=== PATIENT | female | born 1965 | race Caucasian/White ===

== ENCOUNTER 2017-08-07 05:45 | Day surgery (SDC) | payer OTHER ==
[2017-07-27 12:11] VITALS: BMI 56.0
--- NOTE | 2017-07-27 12:48 | PAT Medication Instructions ---
"Service Date Jul 27, 2017. Current Home Medication List Albuterol Hfa (Ventolin Hfa), 2-4 PUFFS INH Q6H PRN for Shortness of Breath Biotin W/ Vitamins C & E (Hair Skin & Nails ... 1250-7.5-7.5 Mcg-mg-Unt), 1 TAB PO QAM Cetirizine (Zyrtec), 10 MG PO HS Ibuprofen (Advil), 200-600 MG PO Q4H PRN for Pain Metoprolol Tartrate (Lopressor) (Lopressor), 50 MG PO BID Mometasone Furoate-Formoterol (Dulera 200/5 Mcg), 2 PUFFS INH BID Montelukast Sodium (Singulair), 10 MG PO HS Multivitamin (Multivitamin), 1 TAB PO DAILY Nystatin/Triamcinolone (Mycogen ||), 1 DOSE TOP QAM Probiotic Product (Probiotic), 1 CAP PO QAM Sertraline (Zoloft), 50 MG PO HS Triamcinolone Acetonide (Nasal (Nasacort Allergy 24Hr), 2 SPRAY NA DAILY Medication Instructions For Your Scheduled Surgery -Contact your surgeon for instructions if you plan on taking: Ibuprofen (Advil), 200-600 MG PO Q4H PRN for Pain - Hold the following medications 24 hours prior to surgery: Nystatin/Triamcinolone (Mycogen ||), 1 DOSE TOP QAM - Hold the following medications the morning of surgery: Probiotic Product (Probiotic), 1 CAP PO QAM Multivitamin (Multivitamin), 1 TAB PO DAILY - Take the following medications the morning of surgery with a sip of water: Triamcinolone Acetonide (Nasal (Nasacort Allergy 24Hr), 2 SPRAY NA DAILY Metoprolol Tartrate (Lopressor) (Lopressor), 50 MG PO BID Mometasone Furoate-Formoterol (Dulera 200/5 Mcg), 2 PUFFS INH BID Biotin W/ Vitamins C & E (Hair Skin & Nails ... 1250-7.5-7.5 Mcg-mg-Unt), 1 TAB PO QAM Albuterol Hfa (Ventolin Hfa), 2-4 PUFFS INH Q6H PRN for Shortness of Breath (if needed, and bring it with you to the hospital) - Take the following medications as scheduled the night before surgery: Triamcinolone Acetonide (Nasal (Nasacort Allergy 24Hr), 2 SPRAY NA DAILY Sertraline (Zoloft), 50 MG PO HS Metoprolol Tartrate (Lopressor) (Lopressor), 50 MG PO BID Mometasone Furoate-Formoterol (Dulera 200/5 Mcg), 2 PUFFS INH BID Montelukast Sodium (Singulair), 10 MG PO HS Cetirizine (Zyrtec), 10 MG PO HS Albuterol Hfa (Ventolin Hfa), 2-4 PUFFS INH Q6H PRN for Shortness of Breath (if needed) If you have any questions please call us at [phone] or [phone] or [phone]"
[2017-07-27 13:02] LABS: BASO % 0.2 %; BASO ABS # 0.01 K/uL (0-0.2); EOS ABS # 0.15 K/uL (0-0.5); HEMATOCRIT 41.3 % (37-47); HEMOGLOBIN 13.8 g/dL (12.0-16.0); IG# 0.01 K/uL (0.00-0.02); LYMPH % 39.9 %; LYMPH ABS # 1.98 K/uL (1.2-3.4); MEAN CELL VOLUME 90.8 fL (80-100); MEAN CORPUSCULAR HEMOGLOBIN 30.3 pg (25-34); MEAN CORPUSCULAR HGB CONC 33.4 g/dl (32-36); MEAN PLATELET VOLUME 9.8 fL (7.4-10.4); MONO % 8.7 %; MONO ABS # 0.43 K/uL (0.11-0.59); NEUT ABS # 2.38 K/uL (1.4-6.5); PLATELET COUNT 202 K/uL (130-400); RED CELL DISTRIBUTION WIDTH CV 14.2 % (11.5-14.5); RED CELL DISTRIBUTION WIDTH SD 46.7 fL (36.4-46.3); WHITE BLOOD COUNT 4.96 K/uL (4.8-10.8)
[2017-07-27 14:37] LABS: ALBUMIN 3.5 gm/dl (3.4-5.0); CALCIUM 9.3 mg/dl (8.5-10.1); CREATININE 0.6 mg/dl (0.60-1.20); POTASSIUM 3.9 mmol/L (3.5-5.1)
[2017-07-27 14:39] LABS: TOTAL PROTEIN 8.2 gm/dl (6.4-8.2)
[~2017-08-07] VITALS: Ht 160 cm; Wt 144.3 kg
[~2017-08-07 05:45] MED LIST: BIOT1CHW PO; CETI10TA84 PO; IBUP-1050 PO; METO50TA16 PO; MISCCAP80 PO; MOME200A INH; MONT1TAB3 PO; MULT-506 PO; NYSTOIN5 TOP; SERT50TA PO; TRIA1SPR4; VNTHFA/IN INH
[2017-08-07] MEDS ORDERED: LACTATED RINGER'S 1000ML 1,000 ML IV SCH ×2 (06:00)
[2017-08-07 06:03] VITALS: Ht 160 cm; Wt 144.3 kg
[2017-08-07] MEDS ORDERED: ROCURONIUM BROMID 50MG/5ML SYR ONE (06:50)
[2017-08-07] MEDS ORDERED: FENTANYL CITRATE INJ 50 MCG/1 ML 2 ML VIAL ONE (06:50)
[2017-08-07] MEDS ORDERED: PROPOFOL IV EMULSION 10 MG/ML 20 ML VIAL IV ONE (06:50)
[2017-08-07] MEDS ORDERED: SUCCINYLCHOLINE CHLORIDE 20 MG/ML 10 ML VIAL IV ONE (06:50)
[2017-08-07] MEDS ORDERED: LIDOCAINE HCL 2% 2 ML VIAL (20MG/ML) ONE (06:50)
--- NOTE | 2017-08-07 06:52 | History & Physical Bridge Note ---
H&P Re-Evaluation Bridge Note: I have examined the patient, reviewed the History & Physical and in the interval since the performance of the History & Physical I have noted the following changes of clinical significance: No changes noted
[2017-08-07] MEDS ORDERED: KETOROLAC TROMETHAMINE 30 MG/ML VIAL ONE (07:36)
[2017-08-07] MEDS ORDERED: DEXAMETHASONE SOD INJ 4 MG/ML VIAL ONE (07:36)
[2017-08-07] MEDS ORDERED: ONDANSETRON INJ 2 MG/ML 2 ML VIAL ONE (07:36)
[2017-08-07] MEDS ORDERED: ESMOLOL HCL 10 MG/ML 10 ML VIAL ONE (08:04)
[2017-08-07] MEDS ORDERED: SODIUM CHLORIDE 0.9% 1000ML 1,000 ML IV SCH (08:18)
[2017-08-07] MEDS ORDERED: MTR600X PO (08:25)
--- NOTE | 2017-08-07 08:26 | Discharge Instructions ---
Discharge Instructions Date of Service Aug 07, 2017. Admission Reason for Admission: Post-Menopausal Bleeding, Abn Endometrial Ultrasou Discharge Discharge Diagnosis / Problem: postop Discharge Goals Goal(s): Specific Goal(s) Activity Recommendations Activity Limitations: as noted below ACTIVITY RECOMMENDATIONS: * Avoid tampons, douching, hot tubs, pools, and intercourse until bleeding has stopped. * May shower as usual. * No strenuous activity for 24-48 hours. After 24-48 hours, you can do anything you feel like doing (driving and sports are okay). RETURN TO SCHOOL/WORK: * You may return to school or work after 24 hours unless specified by your physician. DIET: * Resume previous diet. MEDICATIONS: Resume previous medications unless instructed otherwise by your surgeon. Ibuprofen 200mg 2-3 tablets every 4-6 hours as needed --OR-- Aleve 2 tablets every 8-12 hours as needed for post-operative discomfort Medications are over the counter. Tylenol may be used if above medications are contraindicated or not preferred. Medication should be taken with food or milk. do not take on an empty stomach. SPECIAL CARE INSTRUCTIONS: * Check temperature twice daily for one week. Report any elevation over 101 degrees. * Call office if you experience increased pelvic pain or discomfort not relieved by pain medicine, if you have foul smelling vaginal discharge, if you have bleeding that is heavier than a normal menstrual flow. If you are changing a maxi pad every 1- 2 hours, this is too heavy. vaginal spotting is normal for 1-2 weeks. FOLLOW UP VISIT: Call your doctor's office for a post-operative visit. . Current Hospital Diet Patient's current hospital diet: Discharge Diet Recommended Diet: Regular Diet Procedures Procedures Performed: Evaulation Under Anesthesia, Hysteroscopy, Dilation and Curettage, Endometrial Polyp Resection with Myosure Pending Studies Studies pending at discharge: no Medical Emergencies . Who to Call and When: Medical Emergencies: If at any time you feel your situation is an emergency, please call 911 immediately. . Non-Emergent Contact Non-Emergency issues call your: Specialist . . "Provider Documentation" section prepared by Hamilton Dumont. . VTE Core Measure Inpt VTE Proph given/why not?: Treatment not indicated
[2017-08-07] MEDS ORDERED: HYDROCODONE/ACETAMIN 5/325MG TAB PO PRN ×2 (08:30)
[2017-08-07] MEDS ORDERED: EpHEDrine SULFATE INJ 50 MG/ML AMP IV PRN (08:30)
[2017-08-07] MEDS ORDERED: OXYCODONE/ACETAMINOPHEN 5-325 TAB PO PRN ×2 (08:30)
[2017-08-07] MEDS ORDERED: PROMETHAZINE HCL INJ 6.25 MG in SODIUM CHLORIDE 0.9% 50ML 50 ML IV PRN (08:30)
[2017-08-07] MEDS ORDERED: ONDANSETRON INJ 2 MG/ML 2 ML VIAL IV PRN ×2 (08:30)
[2017-08-07] MEDS ORDERED: METOCLOPRAMIDE HCL INJ 5 MG/ML 2 ML VIAL IV PRN (08:30)
[2017-08-07] MEDS ORDERED: ATROPINE SULFATE 0.1 MG/ML 5ML SYR IV PRN (08:30)
[2017-08-07] MEDS ORDERED: KETOROLAC TROMETHAMINE 30 MG/ML VIAL IV. PRN (08:30)
[2017-08-07] MEDS ORDERED: IBUPROFEN 600 MG TAB PO PRN (08:30)
[2017-08-07] MEDS ORDERED: FENTANYL CITRATE INJ 50 MCG/1 ML 2 ML VIAL IV PRN (08:30)
--- NOTE | 2017-08-07 08:33 | [facility] Post Operative Brief Note ---
Immediate Operative Summary Operative Date Aug 07, 2017. Pre-Operative Diagnosis Postmenopausal Bleeding Post-Operative Diagnosis Postmenopausal Bleeding Procedure(s) Performed Evaulation Under Anesthesia, Hysteroscopy, Dilation and Curettage, Endometrial Polyp Resection with Myosure Surgeon Dr. Dumont Protective Service Specialist Surgeon(s) none Estimated Blood Loss 10 cc Findings See Below dictated Fluids (cc crystalloids) 800 Specimens A: Uterine curettings B:Polyps Drains None Anesthesia Type General Complication(s) none Disposition Accompanied Pt To Recover: yes Disposition: Recovery Room / PACU
--- NOTE | 2017-08-07 08:37 | Anesthesiology Progress Note ---
Anesthesia Post Op Note Date & Time Aug 07, 2017 at 08:37 Vital Signs Pain Intensity: 0 Vital Signs Past 12 Hours Date Time Temp Pulse Resp B/P (MAP) Pulse Ox O2 Delivery O2 Flow Rate FiO2 08/07/17 08:20 101 16 115/63 99 Oxymask 7 08/07/17 08:11 36.7 101 16 127/79 98 Oxymask 7 Notes Mental Status: alert / awake / arousable, participated in evaluation Pt Amnestic to Procedure: Yes Nausea / Vomiting: adequately controlled Pain: adequately controlled Airway Patency, RR, SpO2: stable & adequate BP & HR: stable & adequate Hydration State: stable & adequate Anesthetic Complications: no major complications apparent
--- NOTE | 2017-08-07 08:49 | OPERATIVE REPORT ---
DATE OF OPERATION: 08/07/2017 INDICATION FOR PROCEDURE: This is a 52-year-old with postmenopausal bleeding. POSTOPERATIVE DIAGNOSIS: Same. PROCEDURE: 1. Examination under anesthesia. 2. Hysteroscopy. 3. Dilation and curettage. 4. Endometrial polyp resection with MyoSure. SURGEON: Dr. Dumont. MECHANICAL MANUFACTURING TECHNICIAN: None. ESTIMATED BLOOD LOSS: 10 mL IV FLUIDS: 800 mL URINE OUTPUT: 150 mL clear urine at the beginning of the procedure. FINDINGS: Normal female escutcheon. Uterus has a polyp occupying the lower left side of the uterine cavity. Both ostia are identified. Uterus appears proliferative. SPECIMEN: 1. Uterine polyp resection. 2. Uterine curettings. DRAINS: None. ANESTHESIA: General. COMPLICATIONS: None. DISPOSITION: Stable to recovery room. PROCEDURE IN DETAIL: The patient was taken to the operating room where she was prepped and draped in normal sterile fashion in dorsal lithotomy position. Bladder was catheterized and 150 mL clear urine was obtained. A weighted speculum was placed in the vagina. Brown retractor was used to retract the anterior part of the vagina. Single tooth tenaculum was used to grab the cervix. Cervix was dilated to size 22. Ureteroscope was placed inside the uterine cavity. Findings of the uterine cavity are as dictated above. A MyoSure device was passed through the outflow tract of the MyoSure scope. Endometrial resection of the polyp and endometrium was performed. The MyoSure scope and device was removed. A size 2 sharp curette was introduced into the uterine cavity and curettage performed in all 4 quadrants. Specimen was sent to pathology for pathological analysis as well. All instruments were removed from the vagina and the uterus and accounted for x2 including retractors. The patient is in recovery in stable condition. I attest to the content of the Intraoperative Record and any orders documented therein. Any exception s are noted below.
[2017-08-07 09:00] VITALS: BP 119/65; PULSE 99; TEMP 36.4; O2SAT 93
[2017-08-07 09:30] VITALS: BP 140/77; PULSE 99; TEMP 36.7; O2SAT 95
[2017-08-07 10:00] VITALS: BP 138/72; PULSE 95; TEMP 36.5; O2SAT 95
== END 2017-08-07 10:25 | disposition home or self-care (01) ==
LOC: C.ACU 05:45
PROVIDERS: ATTEND Obstetrics & Gynecology
DX: N95.0 Postmenopausal bleeding (principal); J45.909 Unspecified asthma, uncomplicated; M19.90 Unspecified osteoarthritis, unspecified site; F32.9 Major depressive disorder, single episode, unspecified; Z79.899 Other long term (current) drug therapy; E66.01 Morbid (severe) obesity due to excess calories; Z68.43 Body mass index [BMI] 50.0-59.9, adult; Z90.89 Acquired absence of other organs; Z98.51 Tubal ligation status; Z83.3 Family history of diabetes mellitus; Z82.3 Family history of stroke; Z80.3 Family history of malignant neoplasm of breast

== ENCOUNTER 2024-09-09 14:15 | Inpatient (IN) ==
--- NOTE | 2024-09-09 16:59 | Emergency Department Note ---
Impression & Plan Stroke-like symptom, Decreased vision of left eye, Elevated troponin I level ED Provider Note NAME: BANDAR MONTES AGE: 59 SEX: F : 1965 ARRIVES VIA: Ambulance INFORMANT: Patient, ED PROVIDER(S): Aditya Michael DO CHIEF COMPLAINT: Decreased vision HPI: The patient is a 59-year-old female who presented to the emergency department with decreased vision. She has had similar episodes in the past that do not last very long but this episode started last evening around 7 PM and has continued through today. The patient has not been seen by her family doctor. The patient denies having any headache. She denies having any other symptoms. She has no history of stroke. ROS: See above HPI for pertinent positives & negatives. A total of 10 systems reviewed and were otherwise negative. PAST MEDICAL HISTORY: See Below PAST SURGICAL HISTORY: See Below FAMILY HISTORY: See Below SOCIAL HISTORY: See Below HOME MEDICATIONS: See Below ALLERGIES: See Below VITALS: See Below PHYSICAL EXAMINATION: GENERAL: Patient is awake alert in no acute distress patient is resting comfortably and showing no signs of anxiety EYES: The conjunctivae are clear. The pupils are round and reactive. EARS, NOSE, MOUTH AND THROAT: The nose is without any evidence of any deformity. NECK: The neck is nontender and supple. RESPIRATORY: Normal respiratory effort is noted there is no evidence of wheezing rhonchi or rales CARDIOVASCULAR: Regular rate and rhythm noted there no murmurs rubs or gallops normal S1 normal S2. GASTROINTESTINAL: The abdomen is soft. Abdomen is nontender. MUSCULOSKELETAL/EXTREMITIES: There is no evidence of gross deformity full range of motion is noted in the hips and shoulders. SKIN: There is no obvious evidence of any rash. There are no petechiae, pallor or cyanosis noted. NEUROLOGIC: Patient is awake alert and oriented x3. There was no drift in the upper extremities. There was no facial droop. Speech is clear. Patient is able to hold each leg off of the bed for greater than 5 seconds. MEDICAL DECISION MAKING: The patient is a 59-year-old female who presented to the emergency department for an evaluation of decreased vision in her left eye. The patient had a painless loss of vision in her left eye over 24 hours ago. The patient was not a candidate for TNK. I discussed the patient's laboratory and radiographic studies with her. Radiographic studies did not reveal any large vessel occlusion or obvious intracranial hemorrhage or stroke. At this time the patient's blood pressure was treated in the emergency department. She was also reevaluated multiple times. Given her findings I do feel she may require further inpatient reevaluation and further workup. For this reason I discussed the patient's condition with the on-call [facility] Hospitalist. They have agreed to evaluate the patient. Triage Nursing notes reviewed. Prior medical records reviewed Vital Signs: reviewed and remarkable for elevated blood pressure. Differential diagnosis: Conjunctivitis, trauma, corneal abrasion, hyphema, glaucoma, iritis, corneal ulcer, dendrite, CRAO, CRVO, vitreous detachment, retinal detachment, as well as other pathologies. ER treatment provided: See below Diagnostics interpreted by me: ECG: EKG was obtained in the emergency department. My interpretation is normal sinus rhythm at 78 bpm. There was no ectopy. There was no acute ST segment abnormalities noted. Cardiac Monitoring: An order was placed for continuous cardiac monitoring. The monitor shows a rate of 81 bpm with sinus rhythm. Laboratory studies: As stated above and show below. Imaging studies: See below. Radiographic imaging was reviewed by myself Consultation(s): I discussed this case with Dr. Velarde who is on-call for the [facility] Hospitalist group. Past Med/Surg History Problem List Elevated troponin I level (Acute) Decreased vision of left eye (Acute) Stroke-like symptom (Acute) Encounter for pre-operative examination Screening for colon cancer Medical History Mixed rhinitis Diabetes mellitus, type 2 Sleep apnea does not use device Paroxysmal ventricular tachycardia per [facility] record Morbid obesity with BMI of 50.0-59.9, adult Asthma inhaler daily/prn Nausea and vomiting after administration of anesthetic agent Osteoarthritis Anxiety Periodic heart flutter currently taking metoprolol Surgical History History of colonoscopy History of section x2 History of dilatation and curettage History of bilateral tubal ligation History of tooth extraction all teeth removed History of tonsillectomy Family History Father Family history of diabetes mellitus Aunt Family history of diabetes mellitus Uncle Family history of diabetes mellitus Grandfather (Maternal) Family history of diabetes mellitus Grandfather (Paternal) Family history of diabetes mellitus Grandmother (Paternal) Family history of diabetes mellitus Grandmother (Maternal) Family history of diabetes mellitus Sister Family hx colonic polyps Other No family history of adverse response to anesthesia Social History Smoking Status: Unknown if ever smoked Second Hand Exposure: Yes (hx growing up); Do You Dip or Chew Tobacco: No; Hx Alcohol Use: Yes Hx Substance Use: No Preferred Language: Sinhala Communication Ability: Effective Specialized Developer Required: No Beliefs That Will Affect Care: None Current Living Situation: Spouse Feels Safe at Home: Yes Assistive Devices: Cane and Glasses Allergies Allergies Allergy/AdvReac Type Severity Reaction Status Date / Time No Known Allergies Allergy Verified 09/09/24 18:08 Home Meds Home Medications Medication Instructions Recorded Confirmed acetaminophen 650 mg 650 mg PO Q8H PRN Pain 08/20/18 09/09/24 tablet,extended release (Tylenol Arthritis Pain) albuterol sulfate 90 mcg/actuation 2 puff inhalation Q4H PRN 08/20/18 09/09/24 aerosol inhaler (Ventolin HFA) Shortness Of Breath cetirizine 10 mg tablet 10 mg PO HS 08/20/18 09/09/24 metoprolol tartrate 50 mg tablet 50 mg PO BID 08/20/18 09/09/24 montelukast 10 mg tablet 10 mg PO HS 08/20/18 09/09/24 triamcinolone acetonide 0.1 % 1 applic topical BID PRN itching 08/20/18 09/09/24 topical cream diclofenac sodium 1 % topical gel 2 g topical QID PRN Pain 11/25/22 09/09/24 lisinopril 2.5 mg tablet 2.5 mg PO HS 11/25/22 09/09/24 metformin 1,000 mg tablet 1,000 mg PO BID 11/25/22 09/09/24 mometasone-formoterol HFA 200 2 puff inhalation BID 11/25/22 09/09/24 mcg-5 mcg/actuation aerosol inhaler (Dulera) sertraline 100 mg tablet 100 mg PO HS 11/25/22 09/09/24 sulindac 200 mg tablet 200 mg PO BID 11/25/22 09/09/24 Results & Data (ED) Vital Signs Vital Signs - 24 hr 09/09/24 14:08 09/09/24 17:53 09/09/24 17:54 Temperature 36.6 C Temperature Source Oral Pulse Rate 81 64 Pulse Rate [Apical] 63 Pulse Rhythm [Apical] Regular Pulse Strength [Apical] Normal Respiratory Rate 20 18 Respiratory Effort / Characteristics Non-Labored Spontaneous Respiratory Depth Normal Respiratory Pattern Regular Blood Pressure Blood Pressure [Left Arm] 176/98 H Blood Pressure Mean [Left Arm] 124 Pulse Oximetry 94 95 Oxygen Delivery Method Room Air Room Air Sepsis Recent Fever Within 48 Hours No Sepsis New/Unexplained Change in Mental Status No Sepsis Action Taken by Nursing No Action Required 09/09/24 19:00 09/09/24 19:49 09/09/24 20:41 Temperature Temperature Source Pulse Rate 71 81 Pulse Rate [Apical] 77 Pulse Rhythm [Apical] Pulse Strength [Apical] Respiratory Rate 21 Respiratory Effort / Characteristics Respiratory Depth Respiratory Pattern Blood Pressure 191/100 H 179/91 H Blood Pressure [Left Arm] 192/129 H Blood Pressure Mean [Left Arm] 150 Pulse Oximetry 93 Oxygen Delivery Method Room Air Sepsis Recent Fever Within 48 Hours Sepsis New/Unexplained Change in Mental Status Sepsis Action Taken by [facility] Medications Current Medication List: was personally reviewed by me Laboratory Data Attestation: I reviewed the patient's lab results. 09/09/24 17:51 09/09/24 17:51 Lab Results 09/09/24 09/09/24 09/09/24 Range/Units 17:51 18:22 19:31 WBC 6.29 (4.8-10.8) K/ul RBC 4.76 (4.20-5.40) M/uL Hgb 13.7 (12.0-16.0) g/dl Hct 42.9 (37.0-47.0) % MCV 90.1 (80.0-100.0) fL MCH 28.8 (25.0-34.0) pg MCHC 31.9 L (32.0-36.0) g/dL RDW Std Deviation 44.5 (36.4-46.3) fL RDW Coeff of [place] 13.5 (11.5-14.5) % Plt Count 207 (130-400) K/uL MPV 10.3 (9.4-12.4) fL Immature Gran % (Auto) 0.3 % Neut % (Auto) 55.5 % Lymph % (Auto) 25.9 % [place] % (Auto) 6.7 % Eos % (Auto) 11.3 % Baso % (Auto) 0.3 % Neut # (Auto) 3.49 (1.40-6.50) K/uL Lymph # (Auto) 1.63 (1.20-3.40) K/uL [place] # (Auto) 0.42 (0.11-0.59) K/uL Eos # (Auto) 0.71 H (0.00-0.50) K/uL Baso # (Auto) 0.02 (0.00-0.20) K/uL Immature Gran # (Auto) 0.02 (0.01-0.20) K/uL ESR 73 H (0-30) mm/hr PT Cancelled 10.9 INR Cancelled 1.0 APTT Cancelled 27 PTT Ratio Cancelled 1.0 Sodium 140 (136-145) mmol/L Potassium 4.2 (3.5-5.1) mmol/L Chloride 105 (98-107) mmol/L Carbon Dioxide 29 (21-32) mmol/L Anion Gap 6 (3-11) BUN 24 H (6-23) mg/dl Creatinine 0.62 (0.6-1.2) mg/dl Est Cr Clr Drug Dosing 148.7 ml/min eGFR 103.80 BUN/Creatinine Ratio 38.7 H (10-20) Glucose 93 (70-99(Fasting)) mg/dl Calcium 9.7 (8.6-10.3) mg/dl Magnesium 1.8 (1.7-2.4) mg/dl Total Bilirubin 0.4 (0.2-1.0) mg/dl AST 14 (13-39) U/L ALT 17 (7-52) U/L Alkaline Phosphatase 79 (34-104) U/L Troponin I High Sens 91.1 H* 79.2 H* D (0-14) pg/ml C-Reactive Protein 0.80 H (0-0.5) mg/dl Total Protein 8.2 (6.0-8.3) gm/dl Albumin 4.7 (3.4-5.0) gm/dl Globulin 3.5 (2.5-4.0) gm/dl Albumin/Globulin Ratio 1.3 (0.9-2) Urine Color Yellow Urine Appearance Clear (Clear) Urine pH 6.5 (4.5-7.5) Ur Specific [place] 1.012 (1.000-1.030) Urine Protein Negative (Negative) Urine Glucose (UA) Negative (Negative) Urine Ketones Negative (Negative) Urine Blood Negative (Negative) Urine Nitrite Negative (Negative) Urine Bilirubin Negative (Negative) Urine Urobilinogen Negative (Negative) Ur Leukocyte Esterase Negative (Negative) Administered Medications Discontinued Medications Ioversol (Optiray 320 125ml) 119 ml IV ONCE ONE Stop: 09/09/24 18:44 Last Admin: 09/09/24 18:43 Dose: 119 ml Documented By: ELIZABETH Labetalol HCl (Labetalol Hcl Iv 5 Mg/Ml 20ml) 10 mg IV NOW STA Stop: 09/09/24 19:45 Last Admin: 09/09/24 19:49 Dose: 10 mg Documented By: LIAM Lisinopril (Lisinopril 2.5 Mg Tab) 2.5 mg PO NOW STA Stop: 09/09/24 20:11 Last Admin: 09/09/24 20:18 Dose: Not Given Documented By: LIAM Imaging Data Attestation: I personally reviewed and interpreted this imaging study as follows: My Impression: 1 view chest x-ray was obtained in the emergency department. My interpretation is no free air or definite infiltrate, final report below. CT of the brain was obtained in the emergency department. My interpretation is no intracranial hemorrhage or mass effect, final report below. Radiologist's Impression: Chest X-Ray 09/09/24 16:44 REASON FOR EXAM: The patient is 59 years old presenting with a history of stroke alert. HISTORY: Weakness EXAM: Portable chest Previous: None. Cardiac size is normal. Lungs show no definite acute infiltrate, collapse or edema. IMPRESSION: Negative for acute disease at this time. Electronically signed by Austen Law 09-09-2024 5:[address] 09/09/24 16:[address] without contrast CT angiogram of the neck CT angiogram of the brain with contrast Provided History: Vision loss Comparison: None Technique: HEAD CT: Using multidetector thin collimation helical acquisition technique, axial, coronal and sagittal CT images from the skull base to the vertex were obtained without intravenous contrast. HEAD and NECK CTA: During rapid bolus intravenous injection of nonionic contrast material, axial images were obtained using thin collimation multidetector helical technique from the base of the neck through the of vertex of the head. This CT angiogram data was reconstructed at thin intervals with mild overlap. 3D reconstructions were obtained. The axial source images, multiplanar reformations, 3D reconstructions in both maximum intensity projection display and volume rendered models were reviewed. Dose reduction techniques were achieved by using automatic exposure control and/or adjustment of mA and/or kV according to patient size and/or use of iterative reconstruction technique. Findings: Head CT: There is no intracranial hemorrhage, mass effect, or midline shift. Clay/white matter differentiation in both cerebral hemispheres is preserved. Ventricles are proportionate to the cerebral sulci. Head CTA demonstrates no aneurysm or stenosis of the major intracranial arteries. Neck CTA demonstrates no stenosis of the major cervical arteries. The origins of the great vessels from the aortic arch are patent. The normal distal right internal carotid artery measures 5 mm. The normal distal left internal carotid artery measures 5 mm. No mass is noted within the visualized portions of the cervical soft tissues or lung apices. Impression: 1. Head CTA demonstrates no aneurysm or stenosis of the major intracranial arteries, 2. Neck CTA demonstrates no stenosis of the major cervical arteries. 3. No intracranial hemorrhage on the noncontrast head CT. Electronically signed by Micah Choudhary 09-09-2024 7:15 PM Head CTA 09/09/24 16:[address] without contrast CT angiogram of the neck CT angiogram of the brain with contrast Provided History: Vision loss Comparison: None Technique: HEAD CT: Using multidetector thin collimation helical acquisition technique, axial, coronal and sagittal CT images from the skull base to the vertex were obtained without intravenous contrast. HEAD and NECK CTA: During rapid bolus intravenous injection of nonionic contrast material, axial images were obtained using thin collimation multidetector helical technique from the base of the neck through the of vertex of the head. This CT angiogram data was reconstructed at thin intervals with mild overlap. 3D reconstructions were obtained. The axial source images, multiplanar reformations, 3D reconstructions in both maximum intensity projection display and volume rendered models were reviewed. Dose reduction techniques were achieved by using automatic exposure control and/or adjustment of mA and/or kV according to patient size and/or use of iterative reconstruction technique. Findings: Head CT: There is no intracranial hemorrhage, mass effect, or midline shift. Clay/white matter differentiation in both cerebral hemispheres is preserved. Ventricles are proportionate to the cerebral sulci. Head CTA demonstrates no aneurysm or stenosis of the major intracranial arteries. Neck CTA demonstrates no stenosis of the major cervical arteries. The origins of the great vessels from the aortic arch are patent. The normal distal right internal carotid artery measures 5 mm. The normal distal left internal carotid artery measures 5 mm. No mass is noted within the visualized portions of the cervical soft tissues or lung apices. Impression: 1. Head CTA demonstrates no aneurysm or stenosis of the major intracranial arteries, 2. Neck CTA demonstrates no stenosis of the major cervical arteries. 3. No intracranial hemorrhage on the noncontrast head CT. Electronically signed by Micah Choudhary 09-09-2024 7:15 PM Neck CTA 09/09/24 16:[address] without contrast CT angiogram of the neck CT angiogram of the brain with contrast Provided History: Vision loss Comparison: None Technique: HEAD CT: Using multidetector thin collimation helical acquisition technique, axial, coronal and sagittal CT images from the skull base to the vertex were obtained without intravenous contrast. HEAD and NECK CTA: During rapid bolus intravenous injection of nonionic contrast material, axial images were obtained using thin collimation multidetector helical technique from the base of the neck through the of vertex of the head. This CT angiogram data was reconstructed at thin intervals with mild overlap. 3D reconstructions were obtained. The axial source images, multiplanar reformations, 3D reconstructions in both maximum intensity projection display and volume rendered models were reviewed. Dose reduction techniques were achieved by using automatic exposure control and/or adjustment of mA and/or kV according to patient size and/or use of iterative reconstruction technique. Findings: Head CT: There is no intracranial hemorrhage, mass effect, or midline shift. Clay/white matter differentiation in both cerebral hemispheres is preserved. Ventricles are proportionate to the cerebral sulci. Head CTA demonstrates no aneurysm or stenosis of the major intracranial arteries. Neck CTA demonstrates no stenosis of the major cervical arteries. The origins of the great vessels from the aortic arch are patent. The normal distal right internal carotid artery measures 5 mm. The normal distal left internal carotid artery measures 5 mm. No mass is noted within the visualized portions of the cervical soft tissues or lung apices. Impression: 1. Head CTA demonstrates no aneurysm or stenosis of the major intracranial arteries, 2. Neck CTA demonstrates no stenosis of the major cervical arteries. 3. No intracranial hemorrhage on the noncontrast head CT. Electronically signed by Micah Choudhary 09-09-2024 7:15 PM Discharge Plan Visit Data Chief Complaint: Visual Disturbance ED Provider: Aditya Michael Discharge Problem: Stroke-like symptom, Decreased vision of left eye, Elevated troponin I level Patient Disposition: Being Evaluated by Hospitalist Forms Stand Alone Forms: [facility] Prescriptions Prescriptions: No Action cetirizine 10 mg Tablet 10 mg PO HS triamcinolone acetonide 0.1 % Cream 1 applic TOPICAL BID PRN (Reason: itching) acetaminophen [Tylenol Arthritis Pain] 650 mg Tablet Extended Release 650 mg PO Q8H PRN (Reason: Pain) metoprolol tartrate 50 mg Tablet 50 mg PO BID montelukast 10 mg Tablet 10 mg PO HS albuterol sulfate [Ventolin HFA] 90 mcg/actuation Hfa Aerosol Inhaler 2 puff INHALATION Q4H PRN (Reason: Shortness Of Breath) sertraline 100 mg Tablet 100 mg PO HS metformin 1,000 mg Tablet 1,000 mg PO BID Rx Instructions: with meal lisinopril 2.5 mg Tablet 2.5 mg PO HS sulindac 200 mg Tablet 200 mg PO BID Rx Instructions: with food diclofenac sodium 1 % Gel 2 g TOPICAL QID PRN (Reason: Pain) Rx Instructions: apply to single elbow, wrist or hand; for hand includes palm/fingers/back of hand Dulera 200-5 mcg/actuation Hfa Aerosol Inhaler 2 puff INHALATION BID Referrals Referrals: Garett Bernal MD [Primary Care Provider] -
--- NOTE | 2024-09-09 17:50 | XRay Report ---
REASON FOR EXAM: The patient is 59 years old presenting with a history of stroke alert. HISTORY: Weakness EXAM: Portable chest Previous: None. Cardiac size is normal. Lungs show no definite acute infiltrate, collapse or edema. IMPRESSION: Negative for acute disease at this time. Electronically signed by Austen Law 09-09-2024 5:49 PM
[2024-09-09 18:11] LABS: Basophils # (auto) 0.02 K/uL (0.00-0.20); Basophils % (auto) 0.3 %; Eosinophils # (auto) 0.71 K/uL (0.00-0.50); Eosinophils % (auto) 11.3 %; Hematocrit (blood only) 42.9 % (37.0-47.0); Hemoglobin 13.7 g/dl (12.0-16.0); Immature Granulocytes # (auto) 0.02 K/uL (0.01-0.20); Immature Granulocytes % (auto) 0.3 %; Lymphocytes # (auto) 1.63 K/uL (1.20-3.40); Lymphocytes % (auto) 25.9 %; Mean Corpuscular Hemoglobin 28.8 pg (25.0-34.0); Mean Corpuscular Hgb Conc 31.9 g/dL (32.0-36.0); Mean Corpuscular Volume 90.1 fL (80.0-100.0); Mean Platelet Volume 10.3 fL (9.4-12.4); Monocytes # (auto) 0.42 K/uL (0.11-0.59); Monocytes % (auto) 6.7 %; Neutrophils # (auto) 3.49 K/uL (1.40-6.50); Neutrophils % (auto) 55.5 %; Platelet Count 207 K/uL (130-400); RDW Coefficient of Variation 13.5 % (11.5-14.5); RDW Standard Deviation 44.5 fL (36.4-46.3); Red Blood Count 4.76 M/uL (4.20-5.40); White Blood Count 6.29 K/ul (4.8-10.8)
[2024-09-09 18:28] LABS: Albumin Globulin Ratio 1.3 (0.9-2); Albumin Level 4.7 gm/dl (3.4-5.0); BUN Creatinine Ratio 38.7 (10-20); Bilirubin,Total 0.4 mg/dl (0.2-1.0); C Reactive Protein 0.8 mg/dl (0-0.5); Calcium 9.7 mg/dl (8.6-10.3); Creatinine Clr Calc Pharmacy 148.7 ml/min; Globulin 3.5 gm/dl (2.5-4.0); Magnesium 1.8 mg/dl (1.7-2.4); Potassium 4.2 mmol/L (3.5-5.1); Total Protein 8.2 gm/dl (6.0-8.3)
[2024-09-09 18:36] LABS: Appearance Urine Clear (Clear); Bilirubin Urine Negative (Negative); Blood Urine Negative (Negative); Color Urine Yellow; Glucose Urine UA Negative (Negative); Ketones Urine Negative (Negative); Leukocyte Esterase Urine Negative (Negative); Nitrite Urine Negative (Negative); Protein Urine Negative (Negative); Specific Gravity Urine 1.012 (1.000-1.030); Urobilinogen Urine Negative (Negative); pH Urine 6.5 (4.5-7.5)
[2024-09-09] MEDS: OPTIRAY 320 125ml IV ONE (18:43)
[2024-09-09 18:49] LABS: Troponin I High Sensitivity 91.1 pg/ml (0-14)
--- NOTE | 2024-09-09 19:16 | CT Scan Report ---
Head CT without contrast CT angiogram of the neck CT angiogram of the brain with contrast Provided History: Vision loss Comparison: None Technique: HEAD CT: Using multidetector thin collimation helical acquisition technique, axial, coronal and sagittal CT images from the skull base to the vertex were obtained without intravenous contrast. HEAD and NECK CTA: During rapid bolus intravenous injection of nonionic contrast material, axial images were obtained using thin collimation multidetector helical technique from the base of the neck through the of vertex of the head. This CT angiogram data was reconstructed at thin intervals with mild overlap. 3D reconstructions were obtained. The axial source images, multiplanar reformations, 3D reconstructions in both maximum intensity projection display and volume rendered models were reviewed. Dose reduction techniques were achieved by using automatic exposure control and/or adjustment of mA and/or kV according to patient size and/or use of iterative reconstruction technique. Findings: Head CT: There is no intracranial hemorrhage, mass effect, or midline shift. Clay/white matter differentiation in both cerebral hemispheres is preserved. Ventricles are proportionate to the cerebral sulci. Head CTA demonstrates no aneurysm or stenosis of the major intracranial arteries. Neck CTA demonstrates no stenosis of the major cervical arteries. The origins of the great vessels from the aortic arch are patent. The normal distal right internal carotid artery measures 5 mm. The normal distal left internal carotid artery measures 5 mm. No mass is noted within the visualized portions of the cervical soft tissues or lung apices. Impression: 1. Head CTA demonstrates no aneurysm or stenosis of the major intracranial arteries, 2. Neck CTA demonstrates no stenosis of the major cervical arteries. 3. No intracranial hemorrhage on the noncontrast head CT. Electronically signed by Micah Choudhary 09-09-2024 7:15 PM
[2024-09-09] MEDS: LABETALOL HCL IV 5 MG/ML 20ML IV STA (19:49)
[2024-09-09 20:13] LABS: Partial Thromboplastin Time 27 Seconds (21-31); Prothrombin Time 10.9 Seconds (9.0-12.0)
[2024-09-09] MEDS: lisinopril 2.5 MG TAB PO STA (20:18)
--- NOTE | 2024-09-09 20:43 | History & Physical Report ---
Date of Service September 09, 2024 Assessment & Plan (1) Decreased vision of left eye: (2) Diabetes mellitus, type 2: (3) Asthma: (4) Paroxysmal ventricular tachycardia: (5) Morbid obesity with BMI of 50.0-59.9, adult: Plan: HPI, ROS, PE completed by Polly Pugh PA-C Assessment and Plan per Dr Velarde. See addendum History of Present Illness Chief Complaint: Vision problem Primary Care Provider: Garett Bernal MD Patient is 59-year-old female with PMH asthma, DM II, paroxysmal ventricular tachycardia, panic disorder, morbid obesity presented to ER with complaint of left eye vision issue x 1 day.Patient states noticed last night around 7 PM that she had vision issues with her left eye. She describes it as a "cloud" in the lower half of her vision from her left eye that is obstructing vision from lower portion of eye field of left eye. Patient seen at PCPs office 09/06/2024 for reported bilateral eye itchiness and crusting in the morning in which was treated with erythromycin ointment. Patient states last used yesterday and reports resolution of eye itchiness. Denies any further redness or discharge from eye. Denies fever/chills, diaphoresis, N/V/D/C, [place], dizziness, syncope, other vision loss, diplopia, eye pain, neck pain, CP, SOB, cough, abdominal pain, paresthesias, weakness, extremity weakness, extremity edema, rashes, dysuria, hematuria. Allergies Allergy/AdvReac Type Severity Reaction Status Date / Time No Known Allergies Allergy Verified 09/09/24 18:08 Home Medications Medication Instructions Recorded Confirmed Type acetaminophen 650 mg 650 mg PO Q8H PRN Pain 08/20/18 09/09/24 History tablet,extended release (Tylenol Arthritis Pain) albuterol sulfate 90 mcg/actuation 2 puff inhalation Q4H PRN 08/20/18 09/09/24 History aerosol inhaler (Ventolin HFA) Shortness Of Breath cetirizine 10 mg tablet 10 mg PO HS 08/20/18 09/09/24 History metoprolol tartrate 50 mg tablet 50 mg PO BID 08/20/18 09/09/24 History montelukast 10 mg tablet 10 mg PO HS 08/20/18 09/09/24 History triamcinolone acetonide 0.1 % 1 applic topical BID PRN itching 08/20/18 09/09/24 History topical cream diclofenac sodium 1 % topical gel 2 g topical QID PRN Pain 11/25/22 09/09/24 History lisinopril 2.5 mg tablet 2.5 mg PO HS 11/25/22 09/09/24 History metformin 1,000 mg tablet 1,000 mg PO BID 11/25/22 09/09/24 History mometasone-formoterol HFA 200 2 puff inhalation BID 11/25/22 09/09/24 History mcg-5 mcg/actuation aerosol inhaler (Dulera) sertraline 100 mg tablet 100 mg PO HS 11/25/22 09/09/24 History sulindac 200 mg tablet 200 mg PO BID 11/25/22 09/09/24 History Past Med/Surg History Problem List Elevated troponin I level (Acute) Decreased vision of left eye (Acute) Stroke-like symptom (Acute) Encounter for pre-operative examination Screening for colon cancer Medical History Mixed rhinitis Diabetes mellitus, type 2 Sleep apnea does not use device Paroxysmal ventricular tachycardia per [facility] record Morbid obesity with BMI of 50.0-59.9, adult Asthma inhaler daily/prn Nausea and vomiting after administration of anesthetic agent Osteoarthritis Anxiety Periodic heart flutter currently taking metoprolol Surgical History History of colonoscopy History of section x2 History of dilatation and curettage History of bilateral tubal ligation History of tooth extraction all teeth removed History of tonsillectomy Family History Father Family history of diabetes mellitus Aunt Family history of diabetes mellitus Uncle Family history of diabetes mellitus Grandfather (Maternal) Family history of diabetes mellitus Grandfather (Paternal) Family history of diabetes mellitus Grandmother (Paternal) Family history of diabetes mellitus Grandmother (Maternal) Family history of diabetes mellitus Sister Family hx colonic polyps Other No family history of adverse response to anesthesia Social History Smoking Status: Unknown if ever smoked Second Hand Exposure: Yes (hx growing up); Do You Dip or Chew Tobacco: No; Hx Alcohol Use: Yes Hx Substance Use: No Preferred Language: Turkmen Communication Ability: Effective Hotel Room Attendant Required: No Beliefs That Will Affect Care: None Current Living Situation: Spouse Feels Safe at Home: Yes Assistive Devices: Cane and Glasses Review of Systems Review of Systems: All systems reviewed & are unremarkable except as noted in HPI & below Physical Exam Physical Exam: General: no distress, obese female Head: normocephalic, atraumatic Eyes: PERRL, EOM's intact, conjunctiva non-injected, anicteric ENT: normal inspection external ears, nose, mucous membranes moist Neck: supple, trachea midline, non-tender Lungs: clear, no respiratory distress, no wheezing/rhonchi/rales CV: RRR, no murmur, no JVD, no pretibial edema Abd: normal BS, soft, non-tender Ext: no cyanosis, no calf tenderness Neuro: A&O x 3, no focal deficits noted, normal affect. Peripheral visual gallego intact. Describes "cloud" to lower half of vision of left eye. PERRL, No nystagmus, facial sensation is intact and symmetric, face is strong and symmetric, hearing grossly intact, soft palate elevates symmetrically, no dysarthria, shoulder shrug intact, tongue is midline, normal movement, no fasciculations Strength 5/5 bilateral upper and lower extremities Skin: warm, dry Results & Data Results & Data Vital Signs (Past 12 Hours) Vital Signs Temp Pulse Pulse Resp BP BP Pulse Ox 09/09/24 20:41 81 179/91 H 09/09/24 19:49 71 191/100 H 09/09/24 19:00 77 21 192/129 H 93 09/09/24 17:54 64 09/09/24 17:53 63 18 176/98 H 95 09/09/24 14:08 36.6 C 81 20 94 O2 Del Method 09/09/24 20:41 09/09/24 19:49 09/09/24 19:00 Room Air 09/09/24 17:54 09/09/24 17:53 Room Air 09/09/24 14:08 Room Air Laboratory Results Short CBC 09/09/24 Range/Units 17:51 WBC 6.29 (4.8-10.8) K/ul Hgb 13.7 (12.0-16.0) g/dl Hct 42.9 (37.0-47.0) % Plt Count 207 (130-400) K/uL BMP 09/09/24 17:51 Sodium 140 Potassium 4.2 Chloride 105 Carbon Dioxide 29 BUN 24 H Creatinine 0.62 Glucose 93 Calcium 9.7 Liver Function 09/09/24 Range/Units 17:51 Total Bilirubin 0.4 (0.2-1.0) mg/dl AST 14 (13-39) U/L ALT 17 (7-52) U/L Alkaline Phosphatase 79 (34-104) U/L Albumin 4.7 (3.4-5.0) gm/dl Urine 09/09/24 Range/Units 18:22 Urine Color Yellow Urine Appearance Clear (Clear) Urine pH 6.5 (4.5-7.5) Ur Specific Cranberry 1.012 (1.000-1.030) Urine Protein Negative (Negative) Urine Glucose (UA) Negative (Negative) Diagnostic Findings Chest X-Ray 09/09/24 16:44 REASON FOR EXAM: The patient is 59 years old presenting with a history of stroke alert. HISTORY: Weakness EXAM: Portable chest Previous: None. Cardiac size is normal. Lungs show no definite acute infiltrate, collapse or edema. IMPRESSION: Negative for acute disease at this time. Electronically signed by Austen Law 09-09-2024 5:[address] 09/09/24 16:[address] without contrast CT angiogram of the neck CT angiogram of the brain with contrast Provided History: Vision loss Comparison: None Technique: HEAD CT: Using multidetector thin collimation helical acquisition technique, axial, coronal and sagittal CT images from the skull base to the vertex were obtained without intravenous contrast. HEAD and NECK CTA: During rapid bolus intravenous injection of nonionic contrast material, axial images were obtained using thin collimation multidetector helical technique from the base of the neck through the of vertex of the head. This CT angiogram data was reconstructed at thin intervals with mild overlap. 3D reconstructions were obtained. The axial source images, multiplanar reformations, 3D reconstructions in both maximum intensity projection display and volume rendered models were reviewed. Dose reduction techniques were achieved by using automatic exposure control and/or adjustment of mA and/or kV according to patient size and/or use of iterative reconstruction technique. Findings: Head CT: There is no intracranial hemorrhage, mass effect, or midline shift. Lcay/white matter differentiation in both cerebral hemispheres is preserved. Ventricles are proportionate to the cerebral sulci. Head CTA demonstrates no aneurysm or stenosis of the major intracranial arteries. Neck CTA demonstrates no stenosis of the major cervical arteries. The origins of the great vessels from the aortic arch are patent. The normal distal right internal carotid artery measures 5 mm. The normal distal left internal carotid artery measures 5 mm. No mass is noted within the visualized portions of the cervical soft tissues or lung apices. Impression: 1. Head CTA demonstrates no aneurysm or stenosis of the major intracranial arteries, 2. Neck CTA demonstrates no stenosis of the major cervical arteries. 3. No intracranial hemorrhage on the noncontrast head CT. Electronically signed by Micah Choudhary 09-09-2024 7:15 PM Head CTA 09/09/24 16:[address] without contrast CT angiogram of the neck CT angiogram of the brain with contrast Provided History: Vision loss Comparison: None Technique: HEAD CT: Using multidetector thin collimation helical acquisition technique, axial, coronal and sagittal CT images from the skull base to the vertex were obtained without intravenous contrast. HEAD and NECK CTA: During rapid bolus intravenous injection of nonionic contrast material, axial images were obtained using thin collimation multidetector helical technique from the base of the neck through the of vertex of the head. This CT angiogram data was reconstructed at thin intervals with mild overlap. 3D reconstructions were obtained. The axial source images, multiplanar reformations, 3D reconstructions in both maximum intensity projection display and volume rendered models were reviewed. Dose reduction techniques were achieved by using automatic exposure control and/or adjustment of mA and/or kV according to patient size and/or use of iterative reconstruction technique. Findings: Head CT: There is no intracranial hemorrhage, mass effect, or midline shift. Clay/white matter differentiation in both cerebral hemispheres is preserved. Ventricles are proportionate to the cerebral sulci. Head CTA demonstrates no aneurysm or stenosis of the major intracranial arteries. Neck CTA demonstrates no stenosis of the major cervical arteries. The origins of the great vessels from the aortic arch are patent. The normal distal right internal carotid artery measures 5 mm. The normal distal left internal carotid artery measures 5 mm. No mass is noted within the visualized portions of the cervical soft tissues or lung apices. Impression: 1. Head CTA demonstrates no aneurysm or stenosis of the major intracranial arteries, 2. Neck CTA demonstrates no stenosis of the major cervical arteries. 3. No intracranial hemorrhage on the noncontrast head CT. Electronically signed by Micah Choudhary 09-09-2024 7:15 PM Neck CTA 09/09/24 16:[address] without contrast CT angiogram of the neck CT angiogram of the brain with contrast Provided History: Vision loss Comparison: None Technique: HEAD CT: Using multidetector thin collimation helical acquisition technique, axial, coronal and sagittal CT images from the skull base to the vertex were obtained without intravenous contrast. HEAD and NECK CTA: During rapid bolus intravenous injection of nonionic contrast material, axial images were obtained using thin collimation multidetector helical technique from the base of the neck through the of vertex of the head. This CT angiogram data was reconstructed at thin intervals with mild overlap. 3D reconstructions were obtained. The axial source images, multiplanar reformations, 3D reconstructions in both maximum intensity projection display and volume rendered models were reviewed. Dose reduction techniques were achieved by using automatic exposure control and/or adjustment of mA and/or kV according to patient size and/or use of iterative reconstruction technique. Findings: Head CT: There is no intracranial hemorrhage, mass effect, or midline shift. Clay/white matter differentiation in both cerebral hemispheres is preserved. Ventricles are proportionate to the cerebral sulci. Head CTA demonstrates no aneurysm or stenosis of the major intracranial arteries. Neck CTA demonstrates no stenosis of the major cervical arteries. The origins of the great vessels from the aortic arch are patent. The normal distal right internal carotid artery measures 5 mm. The normal distal left internal carotid artery measures 5 mm. No mass is noted within the visualized portions of the cervical soft tissues or lung apices. Impression: 1. Head CTA demonstrates no aneurysm or stenosis of the major intracranial arteries, 2. Neck CTA demonstrates no stenosis of the major cervical arteries. 3. No intracranial hemorrhage on the noncontrast head CT. Electronically signed by Micah Choudhary 09-09-2024 7:15 PM Supervising Physician Co-Signing Physician Notes IM ATTENDING : Patient seen and examined. History obtained from patient, family, and records. Concur with salient points upon review of preceding documentation by Ms. Polly Pugh PA-C. In addition, blurred vision on left eye improving as per patient. I take responsibility for plan of care below. FINAL ASSESSMENT AND PLAN as follows : TIA presenting as blurred vision left eye Hx of senile cataracts OU on recent outpatient optometry visit 2022 Improved vision since arrival at the ER. Hypertension, elevated secondary to above Paroxysmal VT as per records Bronchial asthma/restrictive lung disease stable on regimen DAVID on CPAP Morbid obesity DM 2, on oral medications, well-controlled as of recent hemoglobin A1c of 6.29 March 2024 OBS Admit to med/tele Neurochecks Aspirin for stroke prevention, permissive hypertension until stroke ruled out TTE, MRI brain, lipid profile for stroke workup Neurology consult Re: Transient left blurred vision ISS BG goal 1 10-1 40, carb count coverage, update hemoglobin A1c DVT prophylaxis. Lovenox subcu Full code I spent a total of 30 minutes coordinating, documenting, and providing care for this patientexcludingtime spent by another provider/QHP. Text document was generated using [employer] voice recognition software. It may contain grammatical or spelling errors. Kindly contact undersigned for clarification of any documentation item in question.
[2024-09-09] MEDS: ASPIRIN 81 MG CHEW PO STA (21:02)
[2024-09-09] MEDS ORDERED: PHARMACIST DISCHARGE MED REC CONSULT PRN (21:31)
[2024-09-09] MEDS ORDERED: DICLOFENAC SOD 1% GEL 100 GM TUBE EXT PRN (21:34)
[2024-09-09] MEDS ORDERED: PROMETHAZINE 12.5 MG/50.5 ML BAG IV PRN (21:34)
[2024-09-09] MEDS ORDERED: LORazepam 0.5 MG TAB PO PRN (21:34)
[2024-09-09] MEDS ORDERED: ACETAMINOPHEN 325 MG TAB PO PRN (21:34)
[2024-09-09] MEDS: MAGNESIUM SULFATE / D5W 1 GM/100 ML BAG IV ONE (22:39)
[2024-09-09] MEDS ORDERED: GLUCOSE 10 TAB/TUBE PO PRN (23:03)
[2024-09-09] MEDS ORDERED: DEXTROSE 50% 50 ML SYRINGE IV PRN (23:03)
[2024-09-09] MEDS ORDERED: GLUCOSE 40% GEL 15 GM TUBE PO PRN (23:03)
[2024-09-09] MEDS ORDERED: CARBOHYDRATES FOR HYPOGLYCEMIA PO PRN (23:03)
[2024-09-09] MEDS ORDERED: GLUCAGON FOR INJ 1 MG VIAL SQ PRN (23:03)
[2024-09-09] MEDS: INSULIN ASPART PER UNIT CHARGE SC SCH (23:42)
--- NOTE | 2024-09-10 00:33 | Magnetic Resonance Report ---
Exam(s): MRI HEAD Without Contrast EXAM: MR Head Without Intravenous Contrast CLINICAL HISTORY: Reason for exam: tia. TECHNIQUE: Magnetic resonance images of the head/brain without intravenous contrast in multiple planes. COMPARISON: Prior head CT from September 09, 2024. FINDINGS: Brain: Mild nonspecific white matter changes. No mass. No hemorrhage. No acute infarct. The flow voids at the base of the brain are intact. Bilateral cerebellar tonsillar ectopia. Ventricles: Unremarkable. No ventriculomegaly. Bones/joints: Unremarkable. No acute fracture. Sinuses: Unremarkable as visualized. No acute sinusitis. Mastoid air cells: Unremarkable as visualized. No mastoid effusion. Orbits: Unremarkable as visualized. IMPRESSION: No evidence of acute intracranial pathology. Electronically signed by: Priti Kang MD 09/10/24 00:32 AM
--- OUTSIDE RECORDS SUMMARY | 2024-09-10 03:23 | External Medical Summary | Summary of Care ---
Author Name Unknown Organization [facility] Address [address] [place] [address] Phone [phone] Care Team Providers Care Plating Technician Name Role Phone Mary Bernal MD Primary Care Provide r Reason for Visit * Reason Comments eRx-Medication Refill Encounter Details Date Type Department Care Team (Late st Contact Info) Description 08/22/2024 Refill Family Medicine [address] [phone] Mary Bernal MD [address] [place] [address] [place] Rom[place] [phone] Type 2 diabetes mellitus with hemoglobin A1c goal of less than 7.0% ([facility]) Allergies No known active allergiesdocumented as of this encounter (statuses as of 08/24/2024) Medications Probiotic Product (DIGESTIVE ADVANTAGE) CAPS One daily 11/12/19 17 Active Acetaminophen ER 650 MG Oral Tablet Extended Release Take 1 Tablet by mouth every 8 hours as needed for Fever. Active Biotin 1000 MCG Tablet Take 1 Tablet by mouth in the morning and 1 Tablet before bedtime. Active Blood Glucose Monitoring Suppl (BreezieTOUCH ULTRA 2) w/Device KITIndications: Type 2 diabetes mellitus with hemoglobin A1c goal of less than 7.0% ([facility]) Test blood sugar daily DxE11.9 1 Kit 01/11/20 20 Active OneTouch Delica Plus [id number] tions:Type 2 diabetes mellitus with hemoglobin A1c goal of less than 7.0% ([facility]) use to test blood sugar up to twice a day. DX e11.9 200 Each 3 03/10/20 22 Active Diclofenac Sodium 1 % External Gel (Voltaren) place 2gm topically on the skin 2 times a day. apply to affected area as directed 100 g 2 11/12/19 23 Active Vitamin D3 25 MCG (1000 UT) Oral Tablet Take 1 Tablet by mouth in the morning. Active Vitamin C Oral Tablet Chewable Take 1 Tablet by mouth in the morning. Active Atorvastatin Calcium 20 MG Oral Tablet (Lipitor) TAKE ONE TABLET BY MOUTH AT BEDTIME 90 Tablet 3 08/26/19 24 Active Dulera 200-5 MCG/ACT Inhalation Aerosol (Mometasone-For moterol) Inhale 2 Puffs by mouth in the morning and 2 Puffs before bedtime. 39 g 3 10/29/19 24 Active Triamcinolone Acetonide 0.1 % External Cream (Aristocort)Ind ications:Other eczema Apply topically to affected area 2 times a day. apply topically to affected area 2 times per day. 90 g 1 11/30/19 24 Active OneTouch Ultra In Vitro Strip (Glucose Blood)Indicatio ns:Type 2 diabetes mellitus with hemoglobin A1c goal of less than 7.0% ([facility]) test blood sugar twice daily 200 Strip 3 11/27/19 24 Active Montelukast Sodium 10 MG Oral Tablet (Singulair) take one tablet by mouth once daily in the evening 90 Tablet 3 01/13/20 24 Active Metoprolol Tartrate 50 MG Oral Tablet (Lopressor)Lilibeth cations:Paroxys mal ventricular tachycardia (HCC) TAKE ONE TABLET BY MOUTH TWICE DAILY 180 Tablet 3 02/27/20 24 Active [place]-3 Fish Oil 1000 MG Oral Capsule ([place]-3) Take 2 Capsules by mouth in the morning and 2 Capsules before bedtime. 03/23/20 24 Active Sertraline HCl 100 MG Oral Tablet (Zoloft)Indicat ions:Panic disorder TAKE ONE TABLET BY MOUTH IN THE MORNING 90 Tablet 1 03/31/20 24 Active Ventolin HFA 108 (90 Base) MCG/ACT Inhalation Aerosol Solution INHALE TWO PUFFS BY MOUTH EVERY FOUR HOURS NEEDED for cough, shortness of breath or wheezing 18 g 05/23/20 24 Active Lisinopril 2.5 MG Oral Tablet (Prinivil) TAKE ONE TABLET BY MOUTH EVERY DAY 90 Tablet 1 07/07/19 25 Active Sulindac 200 MG Oral TabletIndicatio ns:Arthralgia of both hands,Pain in both feet TAKE ONE TABLET BY MOUTH IN THE MORNING AND ONE BEFORE BEDTIME 60 Tablet 3 07/11/19 25 Active Cetirizine HCl 10 MG Oral Tablet (ZyrTEC) TAKE ONE TABLET BY MOUTH IN THE MORNING 90 Tablet 07/20/19 25 Active metFORMIN HCl 1000 MG Oral Tablet (Glucophage)Ind ications:Type 2 diabetes mellitus with hemoglobin A1c goal of less than 7.0% (HCC) take 1 tablet in the morning and 1 tablet in the evening with meals. 180 Tablet 3 08/25/19 25 Active metFORMIN HCl 1000 MG Oral Tablet (Glucophage)Ind ications:Type 2 diabetes mellitus with hemoglobin A1c goal of less than 7.0% (HCC) take 1 tablet in the morning and 1 tablet in the evening with meals. 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 n testing 01/15/2022 Generalized osteoarthritis of multiple sites Body mass index (BMI) of 45.0 to 49.9 in adult 0 10/30/2020 Overview: Per Obesity protocol - Type 2 diabetes mellitus wit h hemoglobin A1c goal of less than 7.0% 01/11/2020 Mixed rhinitis 03/04/2017 Non-seasonal allergic rhinit is due to animal hair and dander 03/04/2017 Paroxysmal ventricular tachycardia 02/09/2010 Overview (03/08/2014): seen on memory loop Asthma, moderate persistent 01/07/2010 Panic disorder 03/04/2006 documented as of this encounter (statuses as of 08/24/2024) Resolved Problems Problem Noted Date Diagnosed Date Resolved Date Morbid obesity due to excess calories 11/09/2020 07/10/2023 Body mass index (BMI) of 50. 0 to 59.9 in adult 03/23/2017 11/01/2020 Overview: Per Obesity protocol #1 Asthma with severity to be determined 12/13/2009 01/07/2010 Overview (10/01/2015): Per Asthma Taxonomy ICD-10 update of inactive term Asthma, allergic 04/01/2005 12/13/2009 Obesity, BMI not known 04/01/200505/05 Overview (04/01/2005): 251 Obesity, morbid (more than 1 00 lbs over ideal weight or BMI > 40) 03/26/2017 Overview: Per Obesity protocol #1 documented as of this encounter (statuses as of 08/24/2024) Immunizations Name Administration Dates Next Due COVID-19 mRNA, LNP-s, No Pre serve, 2-Dose Series (Moderna) 10/05/2020,09/07/2020 Pneumococcal Polysaccharide PPV23 (Pneumovax) 03/08/2014,12/03/2009(Deferred: Patient Refused) Seasonal Influenza Vac., MDV , IM, 0.5 mL (Fluzone) 03/08/2014,06/02/2007 Seasonal Influenza, PF, 6 M & above, IM , (FluLaval or Fluzone) 03/23/2023,04/03/2021,03/28/2019,09/2017,07/14/2017 07/13/2018 Seasonal Influenza, Quadriva lent, No Preserve, IM 05/30/2015 TDAP, Age 7 and older, IM (Adacel) 08/18/2008 documented as of this encounter Social History Tobacco Use Types Packs/Day Years Used Date Smoking Tobacco: Never Smokeless Tobacco: Never Alcohol Use Standard Drinks/Week Comments Yes 0 (1 standard drink = 0.6 oz pur e alcohol) occasional PHQ-2 Answer Date Recorded PHQ-2 Score 0 05/16/2019 Comments No Sex and Gender Information Value Date Recorded Sex Assigned at Female 07/15/2023 12:32 PM EST Legal Sex Female 6:21 AM EST Gender Identity Female 07/15/2023 12:32 PM EST Sexual Orientation Straight 07/15/2023 12 :32 PM EST Occupation Industry Job Start Date Job End Date Not on file Not on file Not on file Not on file documented as of this encounter Miscellaneous Notes * Telephone Encounter - Ember Klein RPh - 08/24/2024 8:46 AM ESTSigned Prescriptions: Disp Refills metFORMIN HCl 1000 MG Oral Tablet (Glucoph*180 Ta*3 Sig: take 1 tablet in the morning and 1 tablet in the evening with meals.Authorizing Provider: MARY BERNALOrderyuliya User: EMBER KLEIN documented in this encounter Plan of Treatment Upcoming Encounters Date Type Department Care Team (Late st Contact Info) Description 08/25/2024 12:30 PM EST Imaging Radiology [address] [place] [id number] 09/20/2024 10:00 AM EDT Office Visit Family Medicine [address] [phone] Abbey Calero PA-C [address] [place] [address] [place] [phone] 03/24/2025 10:00 AM EDT Office Visit Allergy/Immunology [facility] [place] [address] [place] [address] Haydee Parrish PA-C [address] [place] [address] [place] [phone] 04/28/2025 10:40 AM EST Office Visit Family Medicine [address] [place] [phone] Mary Bernal MD [address] [place] [address] [place] [id number] Scheduled Procedures Name Priority Associated Diagnoses Date/Ti me COLONOSCOPY FLEXIBLE PROXIMAL DIAGNOSTIC Recall Screen for colon cancer Health Maintenance Due Date Last Done Comments HIV Screening 1982 Hepatitis C Screening 1985 Hepatitis B Vaccine (1 of 3 - 19+ 3-dose series) 1986 HPV/Co-Test 1997 Cologuard 2012 Fecal Occult Blood Test 2012 Sigmoidoscopy 2012 Pneumococcal Vaccine: 50+ Years (2 of 2 - PCV) 03/08/2015 03/08/2014 Zoster Vaccines (1 of 2) 2017 DTap/Tdap Vaccines (2 - Td or Tdap) 08/18/2018 08/18/2008 Depression Screening 05/16/2020 05/16/2019 Diabetic Foot Exam 01/08/2024 01/07/2023 Diabetic Eye Exam 02/05/2024 02/04/2023, , 10/10/2013 Cervical Cancer Screening 02/07/2024 Pap Smear 02/07/2024 02/06/2021, 10/02/2017, 10/31/2013, Additional history exists COVID-19 Vaccine ( season) 2024 10/05/2020, 09/07/2020 Influenza Vaccine (FLU shot) (#1) 2024 03/23/2023, 04/03/2021, 03/28/2019, Additional history exists Albumin/Creatinine Ratio 07/16/2024 024, 05/28/2022, 07/24/2020 Mammogram 08/23/2024 08/24/2023, 07/23, 2021, Additional history exists HbA1c 09/27/2024 03/29/2024, 06/23, 01/07/2023, Additional history exists GFR 03/29/2025 03/29/2024, 06/23, 01/07/2023, Additional history exists Colonoscopy 12/03/2025 12/03/2022, 08/30/2018 Colorectal Cancer Screening 12/03/2025 Lipid Panel 03/29/2029 03/29/2024, 06/23, 01/07/2023, Additional history exists HPV (Gardasil) Vaccine Aged Out No lo nger eligible based on patient's age to complete this topic MENINGOCOCCAL (MENACTRA/MENVEO) Aged Out No longer eligible based on patient's age to complete this topic Meningitis B Vaccine (Bexsero/Trumemba) Aged Out No longer eligible based on patient's age to complete this topic documented as of this encounter Medical Devices Not on filedocumented as of this encounter Visit Diagnoses Diagnosis Type 2 diabetes mellitus with hemoglobin A1c goal of less than 7.0% ([facility]) documented in this encounter Care Teams Plating Technician Relationship Specialty Start Date End Date Mary Bernal MD [address] [place] [address] [place] Romero [phone] PCP - General Family Medicine 01/13/24 documented as of this encounter
--- OUTSIDE RECORDS SUMMARY | 2024-09-10 03:23 | External Medical Summary | Summary of Care ---
Author Name Unknown Organization [facility] Address [address] [place] [facility] [place] [address] Phone [phone] Care Team Providers Care Front Desk Representative Name Role Phone Mary Bernal MD Primary Care Provide r Reason for Visit * Reason Comments eRx-Medication Refill Encounter Details Date Type Department Care Team (Late st Contact Info) Description 09/05/2024 Refill Family Medicine [address] [phone] Mary Bernal MD [address] [place] [address] [place] [address] Allergies No known active allergiesdocumented as of this encounter (statuses as of 09/06/2024) Medications Probiotic Product (DIGESTIVE ADVANTAGE) CAPS One daily 11/12/19 Active Acetaminophen ER 650 MG Oral Tablet Extended Release Take 1 Tablet by mouth every 8 hours as needed for Fever. Active Blood Glucose Monitoring Suppl (ONETOUCH ULTRA 2) w/Device KITIndications: Type 2 diabetes mellitus with hemoglobin A1c goal of less than 7.0% ([facility]) Test blood sugar daily DxE11.9 1 Kit 01/11/20 Active OneTouch Delica Plus [id number] tions:Type 2 diabetes mellitus with hemoglobin A1c goal of less than 7.0% ([facility]) use to test blood sugar up to twice a day. DX e11.9 200 Each 3 03/10/20 Active Dulera 200-5 MCG/ACT Inhalation Aerosol (Mometasone-For [...] A1c goal of less than 7.0% (HCC) test blood sugar twice daily 200 Strip 3 11/27/19 24 Active Montelukast Sodium 10 MG Oral Tablet (Singulair) take one tablet by mouth once daily in the evening 90 Tablet 3 01/13/20 24 Active Metoprolol Tartrate 50 MG Oral Tablet (Lopressor)Lilibeth cations:Paroxys mal ventricular tachycardia (HCC) TAKE ONE TABLET BY MOUTH TWICE DAILY 180 Tablet 3 02/27/20 24 Active [place]-3 Fish Oil 1000 MG Oral Capsule ([place]-3) Take 2 Capsules by mouth in the [...] meals. 180 Tablet 3 08/25/19 25 Active Diclofenac Sodium 1 % External Gel (Voltaren) Apply topically to affected area 2 times a day. Apply to affected area 100 g 2 08/30/19 25 Active Atorvastatin Calcium 20 MG Oral Tablet (Lipitor) TAKE ONE TABLET BY MOUTH AT BEDTIME 90 Tablet 3 09/07/19 25 Active Biotin 1000 MCG Tablet Take 1 Tablet by mouth in the morning and 1 Tablet before bedtime. 025 Discontinued Vitamin D3 25 MCG (1000 UT) Oral Tablet Take 1 Tablet by mouth in the morning. 025 Discontinued Vitamin C Oral Tablet Chewable Take 1 Tablet by mouth in the morning. 025 Discontinued Atorvastatin Calcium 20 MG Oral Tablet (Lipitor) TAKE ONE TABLET BY MOUTH AT BEDTIME 90 Tablet 3 08/26/19 24 025 Discontinued documented as of this encounter (statuses as of 09/06/2024) Active Problems Problem Noted Date Diagnosed Date [...] as of this encounter (statuses as of 09/06/2024) Resolved Problems Problem Noted Date Diagnosed Date [...] as of this encounter (statuses as of 09/06/2024) Immunizations Name Administration Dates Next Due COVID-19 [...] encounter Miscellaneous Notes * Telephone Encounter - Chasity Piper RPh - 09/06/2024 1:21 PM EDTSigned Prescriptions: Disp Refills Atorvastatin Calcium 20 MG Oral Tablet (Li*90 Tab*3 Sig: TAKE ONE TABLET BY MOUTH AT BEDTIMEAuthorizing Provider: MARY BERNAL User: CHASITY PIPER- documented in this encounter Plan of Treatment Upcoming Encounters Date Type Department Care Team (Late st Contact Info) Description 09/20/2024 10:00 AM EDT Office Visit Family Medicine [address] [phone] Abbey Calero PA-C [address] [place] [address] [place] [phone] 03/24/2025 10:00 AM EDT Office Visit Allergy/Immunology [facility] [address] [facility] [place] [address] Haydee Parrish PA-C [address] [facility] [place] [address] 04/28/2025 10:40 AM EST Office Visit Family Medicine [address] [phone] Mary Bernal MD [address] [place] [address] [place] [phone] 08/29/2025 10:00 AM EDT Imaging Radiology [address] [place] [id number] Scheduled Procedures Name Priority Associated Diagnoses Date/Ti [...] Cancer Screening 02/07/2024 Pap Smear 02/07/2024 02/06/2021, 02/2017, 10/31/2013, Additional history exists COVID-19 Vaccine ( season) 2024 10/05/2020, 09/07/2020 Influenza Vaccine (FLU shot) (#1) 2024 03/23/2023, 04/03/2021, 03/28/2019, Additional history exists Albumin/Creatinine Ratio 07/16/2024 024, 05/28/2022, 07/24/2020 HbA1c 09/27/2024 03/29/2024, 06/23, 01/07/2023, Additional history exists GFR 03/29/2025 03/29/2024, 06/23, 01/07/2023, Additional history exists Mammogram 08/25/2025 08/25/2024, 09/2023, 08/05/2022, Additional history exists Colonoscopy 12/03/2025 12/03/2022, 08/30/2018 [...] Not on filedocumented as of this encounter Care Teams Front Desk Representative Relationship Specialty Start Date End Date Mary Bernal MD [address] [place] [address] [place] Rom[place] [phone] PCP - General Family Medicine 01/13/24 documented as of this encounter
--- OUTSIDE RECORDS SUMMARY | 2024-09-10 03:23 | External Medical Summary | Summary of Care ---
Author Name Unknown Organization [facility] Address [address] [facility] [place] [address] Phone [phone] Care Team Providers Care Billing Control Clerk Name Role Phone Garett Bernal MD Primary Care Provide r Reason for Visit * Reason Comments Outpatient Testing Encounter Details Date Type Department Care Team (Late st Contact Info) Description 09/08/2024 10:40 AM EDT Laboratory Laboratory [address] [place] [phone] [facility] Lab [address] [place] [address] Encounter for routine laboratory testing; Encounter for long-term (current) use of medications Allergies No known active allergiesdocumented as of this encounter (statuses as of 09/08/2024) Medications Probiotic Product (DIGESTIVE ADVANTAGE) CAPS One daily 7 Active Acetaminophen ER 650 MG Oral Tablet Extended Release Take 1 Tablet by mouth every 8 hours as needed for Fever. Active Blood Glucose Monitoring Suppl ([employer] ULTRA 2) w/Device KITIndications:T ype 2 diabetes mellitus with hemoglobin A1c goal of less than 7.0% ([facility]) Test blood sugar daily DxE11.9 1 Kit 0 Active OneTouch Delica Plus [id number] ions:Type 2 diabetes mellitus with hemoglobin A1c goal of less than 7.0% ([facility]) use to test blood sugar up to twice a day. DX e11.9 200 Each 3 2 Active Dulera 200-5 MCG/ACT Inhalation Aerosol (Mometasone-Form oterol) Inhale 2 Puffs by mouth in the morning and 2 Puffs before bedtime. 39 g 3 4 Active Triamcinolone Acetonide 0.1 % External Cream (Aristocort)Lilibeth cations:Other eczema Apply topically to affected area 2 times a day. apply topically to affected area 2 times per day. 90 g 1 4 Active OG-Veg[employer] Ultra In Vitro Strip (Glucose Blood)Indication s:Type 2 diabetes mellitus with hemoglobin A1c goal of less than 7.0% (HCC) test blood sugar twice daily 200 Strip 3 4 Active Montelukast Sodium 10 MG Oral Tablet (Singulair) take one tablet by mouth once daily in the evening 90 Tablet 3 4 Active Metoprolol Tartrate 50 MG Oral Tablet (Lopressor)Indic ations:Paroxysma l ventricular tachycardia (HCC) TAKE ONE TABLET BY MOUTH TWICE DAILY 180 Tablet 3 4 Active [place]-3 Fish Oil 1000 MG Oral Capsule ([place]-3) Take 2 Capsules by mouth in the morning and 2 Capsules before bedtime. 4 Active Sertraline HCl 100 MG Oral Tablet (Zoloft)Indicati ons:Panic disorder TAKE ONE TABLET BY MOUTH IN THE MORNING 90 Tablet 1 4 Active Ventolin HFA 108 (90 Base) MCG/ACT Inhalation Aerosol Solution INHALE TWO PUFFS BY MOUTH EVERY FOUR HOURS NEEDED for cough, shortness of breath or wheezing 18 g 4 Active Lisinopril 2.5 MG Oral Tablet (Prinivil) TAKE ONE TABLET BY MOUTH EVERY DAY 90 Tablet 1 5 Active Sulindac 200 MG Oral TabletIndication s:Arthralgia of both hands,Pain in both feet TAKE ONE TABLET BY MOUTH IN THE MORNING AND ONE BEFORE BEDTIME 60 Tablet 3 5 Active Cetirizine HCl 10 MG Oral Tablet (ZyrTEC) TAKE ONE TABLET BY MOUTH IN THE MORNING 90 Tablet 5 Active metFORMIN HCl 1000 MG Oral Tablet (Glucophage)Lilibeth cations:Type 2 diabetes mellitus with hemoglobin A1c goal of less than 7.0% (HCC) take 1 tablet in the morning and 1 tablet in the evening with meals. 180 Tablet 3 5 Active Diclofenac Sodium 1 % External Gel (Voltaren) Apply topically to affected area 2 times a day. Apply to affected area 100 g 2 5 Active Atorvastatin Calcium 20 MG Oral Tablet (Lipitor) TAKE ONE TABLET BY MOUTH AT BEDTIME 90 Tablet 3 5 Active Erythromycin 5 MG/GM Ophthalmic Ointment Instill into eye 4 times a day for 10 days. Apply to affected eye(s) until redness and discharge resolved. 3.5 g 5 09/17/19 25 Active documented as of this encounter (statuses as of 09/08/2024) Active Problems Problem Noted Date Diagnosed Date [...] as of this encounter (statuses as of 09/08/2024) Resolved Problems Problem Noted Date Diagnosed Date [...] as of this encounter (statuses as of 09/08/2024) Immunizations Name Administration Dates Next Due COVID-19 [...] Answer Date Recorded PHQ-2 Score 0 05/16/2019 Hunger Vital Sign Answer Date Recorded Within the past 12 months, y ou worried that your food would run out before you got the money to buy more. Never true 09/08/19 25 Within the past 12 months, t he food you bought just didn't last and you didn't have money to get more. Never true 09/07/2024 Childcare Answer Date Recorded Do you feel overwhelmed with taking care of a child, family member or friend? No 09/07/2024 Does your family need help f inding childcare? (Household - for ages 0-17 years) Not on file 09/07/2024 Clothing Answer Date Recorded Have you been unable to get clothing when it was really needed? No 09/07/2024 Is your family able to get c lothes or diapers when needed? (Household - for ages 0-17 years) Not on file 09/07/2024 Personal Safety Answer Date Recorded Do you feel unsafe or have concerns for your saf ety? No 09/07/2024 Do you have concerns for you r family's safety? (Household - for ages 0-17 years) Not on file 09/07/2024 Utilities Answer Date Recorded Do you have trouble paying y our heating, water, or electric bill? No 09/07/2024 Is your family able to pay t he heat, water, or electric bill? (Household - for ages 0-17 years) Not on file 09/07/2024 Does your family have access to good internet? (Household - for ages 0-17 years) Not on file 09/07/2024 Employment Status Answer Date Recorded Are you unemployed or without regular income? No 09/07/2024 Does the household have a re gular source of income? (Household - for ages 0-17 years) Not on file 09/07/2024 Social Connections Answer Date Recorded How often do you feel lonely or isolated from th ose around you? Rarely 09/07/2024 Financial Resource Strain Answer Date R ecorded Do you have any trouble payi ng for your medications, or do you think you might in the future? No 09/07/2024 Does your family have troubl e paying for medicine? (Household - for ages 0-17 years) Not on file 09/07/2024 Transportation Needs Answer Date Record ed Do you have trouble getting a ride to medical visits or work? (Adult - for ages 18 years and over) Not on file 09/07/2024 Does your family have a hard time getting a ride to doctors visits? (Household - for ages 0-17 years) Not on file 09/07/2024 Has lack of transportation k ept you from medical appointments, meetings, work, or from getting things needed for daily living? Check all that apply. No 09/07/2024 Do you (or your family) have trouble finding or paying for a ride (transportation)? (Household - for ages 0-17 years) Not on file 09/07/2024 Housing Stability Answer Date Recorded Do you currently live in a s helter or have no steady place to sleep at night? No 09/07/2024 Do you think you are at risk of becoming homeless? (Adult - for ages 18 years and over) Not on file 09/07/2024 Does your family worry about paying for your home or becoming homeless? (Household - for ages 0-17 years) Not on file 0 09/07/2024 Are you homeless or worried that you might be in the future? No 09/07/2024 Are you (or your family) chayito eless or worried that you might be in the future? (Household - for ages 0-17 years) Not on file Food Insecurity Answer Date Recorded Within the past 12 months, y ou worried that your food would run out before you got the money to buy more. Never true 09/08/19 25 Within the past 12 months, t he food you bought just didn't last and you didn't have money to get more. Never true 09/07/2024 Do you need food for this week? No 09/07/2024 Comments No Sex and Gender Information Value Date Recorded Sex Assigned at Female 07/15/2023 12:32 PM EST Legal Sex Female 6:21 AM EST Gender Identity Female 07/15/2023 12:32 PM EST Sexual Orientation Straight 07/15/2023 12 :32 PM EST Occupation Industry Job Start Date Job End Date Not on file Not on file Not on file Not on file documented as of this encounter Plan of Treatment Upcoming Encounters Date Type Department Care Team (Late st Contact Info) Description 09/20/2024 10:00 AM EDT Office Visit Family Medicine [address] [place] [phone] Abbey Calero PA-C [address] [place] [address] [place] [id number] 03/24/2025 10:00 AM EDT Office Visit Allergy/Immunology [place] Lexie Aaron [address] [place] [id number] Haydee Parrish [facility]-C [address] [facility] [place] [address] 04/28/2025 10:40 AM EST Office Visit Family Medicine [address] [place] [phone] Garett Bernal MD [address] [place] [address] [place] [address] 08/29/2025 10:00 AM EDT Imaging Radiology [address] [place] [address] Pending Results Name Type Priority Associated Diagnoses Date /Time CBC Lab Routine Encounter for routine laboratory testing Encounter for long-term (current) use of medications 09/08/2024 10:39 AM EDT ALBUMIN / CREATININE RATIO, URINE Lab Routine Encounter for routine laboratory testing 09/08/2024 10:39 AM EDT Scheduled Procedures Name Priority Associated Diagnoses Date/Ti [...] 10/31/2013, Additional history exists COVID-19 Vaccine ( - 2023- season) 2024 10/05/2020, 09/07/2020 Influenza Vaccine (FLU [...] as of this encounter Visit Diagnoses Diagnosis Encounter for routine laboratory testing Laboratory examination ordered as part of a routine general medical examination Encounter for long-term (current) use of medications Encounter for long-term (current) use of other medications Screening mammogram for breast cancer documented in this encounter Care Teams Billing Control Clerk Relationship Specialty Start Date End Date Garett Bernal MD [address] [place] [address] [place] [address] PCP - General Family Medicine 01/13/24 documented as of this encounter
--- OUTSIDE RECORDS SUMMARY | 2024-09-10 03:23 | External Medical Summary ---
Author Name Unknown Address Unknown Organization K01:[facility] - [address] [facility] [address] Laboratory Report Ordering Provider Test Date Status ROLANDA PATEL 09/08/2024 10:39:52 Final Normal: <30 mg/g creatinine< br/>High: 30-300 mg/g creatinine
Very High: >300 mg/g creatinine
Nephrotic: >2200 mg/g creatinine Observation Date Value Abnormality Reference (Units ) Status Albumin, Urine 09/08/2024 10:39:52 4.00 (mg/dL) Final Creatinine, Urine 09/08/2024 10:39:52 33 (mg/dL) Final Albumin/Creatinine [Mass Ratio] in Urine 09/08/2024 10:39:52 121 Above high normal <30 (mg/g Creat) Final Performing Location LABORATORY [facility] - [address] [facility] [address]
--- OUTSIDE RECORDS SUMMARY | 2024-09-10 03:23 | External Medical Summary | Summary of Care ---
Author Name Unknown Organization [facility] Address [address] [place] [address] Phone [phone] Care Team Providers Care Air Bag Curer Name Role Phone Mary Bernal MD Primary Care Provide r Reason for Visit * Reason Comments eRx-Medication Refill Encounter Details Date Type Department Care Team (Late st Contact Info) Description 07/09/2024 Refill Family Medicine [address] [phone] Yong Welch MD [address] [place] [address] [place] [id number] Encounter for routine laboratory testing*; Arthralgia of both hands; Pain in both feet; Encounter for long-term (current) use of medications Allergies No known active allergiesdocumented as of this encounter (statuses as of 07/11/2024) Medications Probiotic Product (DIGESTIVE ADVANTAGE) CAPS One daily 11/12/19 17 Active Acetaminophen ER 650 MG Oral Tablet Extended Release Take 1 Tablet by mouth every 8 hours as needed for Fever. Active Biotin 1000 MCG Tablet Take 1 Tablet by mouth in the morning and 1 Tablet before bedtime. Active Blood Glucose Monitoring Suppl ([employer] ULTRA 2) w/Device KITIndications: Type 2 diabetes mellitus with hemoglobin A1c goal of less than 7.0% ([facility]) Test blood sugar daily DxE11.9 1 Kit 01/11/20 20 Active OneTouch Delica Plus [id number] tions:Type 2 diabetes mellitus with hemoglobin A1c goal of less than 7.0% (HCC) use to test blood sugar up to [...] BEDTIME 90 Tablet 3 08/26/19 24 Active metFORMIN HCl 1000 MG Oral Tablet (Glucophage)Ind ications:Type 2 diabetes mellitus with hemoglobin A1c goal of less than 7.0% (HCC) take 1 tablet in the morning and 1 tablet in the evening with meals. 180 Tablet 3 09/04/19 24 Active Dulera 200-5 MCG/ACT Inhalation Aerosol [...] DAILY 180 Tablet 3 02/27/20 24 Active Letha-3 Fish Oil 1000 MG Oral Capsule (Letha-3) Take 2 Capsules by mouth in the morning and 2 Capsules before bedtime. 03/23/20 24 Active Sertraline HCl 100 MG Oral Tablet (Zoloft)Indicat ions:Panic disorder TAKE ONE TABLET BY MOUTH IN THE MORNING 90 Tablet 1 03/31/20 24 Active Cetirizine HCl 10 MG Oral Tablet (ZyrTEC) TAKE ONE TABLET BY MOUTH IN THE MORNING 90 Tablet 04/20/20 24 Active Ventolin HFA 108 (90 Base) MCG/ACT Inhalation Aerosol Solution INHALE TWO PUFFS BY MOUTH EVERY FOUR HOURS NEEDED for cough, shortness of breath or wheezing 18 g 05/23/20 24 Active Cephalexin 500 MG Oral CapsuleIndicati ons:Cellulitis of right leg Take 1 Capsule by mouth in the morning and 1 Capsule at noon and 1 Capsule in the evening and 1 Capsule before bedtime. Do all this for 10 days. 40 Capsule 07/01/19 25 025 Active Lisinopril 2.5 MG Oral Tablet (Prinivil) TAKE ONE TABLET BY MOUTH EVERY DAY 90 Tablet 1 07/07/19 25 Active Sulindac 200 MG Oral TabletIndicatio ns:Arthralgia of both hands,Pain in both feet TAKE ONE TABLET BY MOUTH IN THE MORNING AND ONE BEFORE BEDTIME 60 Tablet 3 07/11/19 25 Active Sulindac 200 MG Oral TabletIndicatio ns:Arthralgia of both hands,Pain in both feet TAKE ONE TABLET BY MOUTH IN THE MORNING AND ONE BEFORE BEDTIME 60 Tablet 5 01/04/20 24 025 Discontinued documented as of this encounter (statuses as of 07/11/2024) Active Problems Problem Noted Date Diagnosed Date [...] as of this encounter (statuses as of 07/11/2024) Resolved Problems Problem Noted Date Diagnosed Date [...] as of this encounter (statuses as of 07/11/2024) Immunizations Name Administration Dates Next Due COVID-19 [...] encounter Miscellaneous Notes * Telephone Encounter - Mary Bernal MD - 07/11/2024 10:34 AM EST Signed Prescriptions: Disp Refills Sulindac 200 MG Oral Tablet 60 Tab*3 Sig: TAKE ONE TABLET BY MOUTH IN THE MORNING AND ONE BEFORE BEDTIME Authorizing Provider: MARY BERNAL * Telephone Encounter - Amanda Desai [facility] - 07/11/2024 6:44 AM ESTPending Prescriptions: Disp Refills Sulindac 200 MG Oral Tablet 60 Tab*3 Sig: TAKE ONE TABLET BY MOUTH IN THE MORNING AND ONE BEFORE BEDTIME * Telephone Encounter - Amanda Desai [facility] - 07/11/2024 6:41 AM EST Per protocol, patient due for CBC Lab ordered to be completed with next labs. Sulindac last ordered by Dr. Dunn Please approve if appropriate Thank You, Amanda Desai [facility] Clinical Pharmacist [facility] [phone] [id number] 07/11/2024, 6:44 AM documented in this encounter Plan of Treatment Upcoming Encounters Date Type Department Care Team (Late st Contact Info) Description 08/25/2024 12:30 PM EST Imaging Radiology [address] [place] [address] 09/20/2024 10:00 AM EDT Office Visit Family Medicine [address] [place] [phone] Abbey Calero PA-C [address] [place] [address] [place] [address] 03/24/2025 10:00 AM EDT Office Visit Allergy/Immunology [facility] [place] [address] [place] [address] Haydee Parrish PA-C [address] [place] [address] 04/28/2025 10:40 AM EST Office Visit Family [address] [place] [phone] Mary Bernal MD [address] [place] [address] [place] [address] Scheduled Orders Name Type Priority Associated Diagnoses Orde r Schedule CBC Lab Routine Encounter for routine laboratory testing Encounter for long-term (current) use of medications Expected: 09/08/2024 (Approximate), Expires: 07/11/2025 ALBUMIN / CREATININE RATIO, URINE Lab Routine Encounter for routine laboratory testing Expected: 09/08/2024 (Approximate), Expires: 07/11/2025 Scheduled Procedures Name Priority Associated Diagnoses Date/Ti [...] Visit Diagnoses Diagnosis Encounter for routine laboratory testing- Primary Laboratory examination ordered as part of a routine general medical examination Arthralgia of both hands Pain in both feet Pain in limb Encounter for long-term (current) use of medications Encounter for long-term (current) use of other medications documented in this encounter Care Teams Air Bag Curer Relationship Specialty Start Date End Date Mary Bernal MD [address] [place] [address] [place] [phone] PCP - General Family Medicine 01/13/24 documented as of this encounter
--- OUTSIDE RECORDS SUMMARY | 2024-09-10 03:23 | External Medical Summary | Summary of Care ---
Author Name Unknown Organization [facility] Address [address] [facility] [place] [address] Phone [phone] Care Team Providers Care Robotic Maintenance Technician Name Role Phone Garett Bernal MD Primary Care Provide r Reason for Visit * Reason Comments Acute Encounter Details Date Type Department Care Team (Latest Contact Info) Description 09/06/2024 2:40 PM EDT Office Visit Family Medicine [address] [phone] Vesta Donnelly MD [address] [place] [address] [place] [phone] Acute bacterial conjunctivitis of right eye*; Type 2 diabetes mellitus with hemoglobin A1c goal of less than 7.0% ([facility]); Body mass index (BMI) of 45.0 to 49.9 in adult (HCC); Paroxysmal ventricular tachycardia ([facility]) Allergies No known active allergiesdocumented as of this encounter (statuses as of 09/06/2024) Medications Probiotic Product (DIGESTIVE ADVANTAGE) CAPS One daily 11/12/19 17 Active Acetaminophen ER 650 MG Oral Tablet Extended Release Take 1 Tablet by mouth every 8 hours as needed for Fever. Active Blood Glucose Monitoring Suppl (Twirl TV ULTRA 2) w/Device KITIndications: Type 2 diabetes mellitus with hemoglobin A1c goal of less than 7.0% ([facility]) Test blood sugar daily DxE11.9 1 Kit 01/11/20 20 Active OneTouch Delica Plus [id number] tions:Type 2 diabetes mellitus with hemoglobin A1c goal of less than 7.0% (HCC) use to test blood sugar up to twice a day. DX e11.9 200 Each 3 03/10/20 22 Active Dulera 200-5 MCG/ACT Inhalation Aerosol (Mometasone-For [...] DAILY 180 Tablet 3 02/27/20 24 Active [place]-3 Fish Oil 1000 MG Oral Capsule ([place]-3) Take 2 Capsules by mouth in the [...] hemoglobin A1c goal of less than 7.0% ([facility]) take 1 tablet in the morning and [...] BEDTIME 90 Tablet 3 09/07/19 25 Active Erythromycin 5 MG/GM Ophthalmic Ointment Instill into eye 4 times a day for 10 days. Apply to affected eye(s) until redness and discharge resolved. 3.5 g 09/07/19 25 025 Active Biotin 1000 MCG Tablet Take 1 Tablet by mouth in the morning and 1 Tablet before bedtime. 025 Discontinued Vitamin D3 25 MCG (1000 UT) Oral Tablet Take 1 Tablet by mouth in the morning. 025 Discontinued Vitamin C Oral Tablet Chewable Take 1 Tablet by mouth in the morning. 025 Discontinued documented as of this encounter [...] on file documented as of this encounter Last Filed Vital Signs Vital Sign Reading Time Taken Comments Blood Pressure 120/88 09/06/2024 2:36 PM EDT Pulse 76 09/06/2024 2:36 PM EDT Temperature 35.5 C (95.9 F) 09/06/2024 2:36 PM ED T Respiratory Rate - - Oxygen Saturation 92% 09/06/2024 2:36 PM EDT Inhaled Oxygen Concentration - - Weight 134.7 kg (297 lb) 09/06/2024 2:36 PM EDT Height 165.1 cm (5' 5") 09/06/2024 2:36 PM EDT Body Mass Index 49.42 09/06/2024 2:36 PM EDT documented in this encounter Progress Notes * Adrián Overton, Vesta Wayne MD - 09/06/2024 2:42 PM EDT Images from the original note were not included. History of Present Illness Vero Watson is a 59 year old female that presents for Acute History of Present Illness The patient, with a history of tachycardia managed with metoprolol, presents with a week-long history of eye irritation. She describes an intense itchiness, compelling her to 'scratch it out.' In themornings, she wakes up with 'crud in the corner' of her eye, which she removes. She also reports 'cloudies' obstructing her vision, which she alleviates by rubbing her eye. Previously, her eye would water excessively, but now it only elkins when she rubs it. The eye is painful when rubbed, but not when moved. She denies any systemic symptoms such as fever or gastrointestinal upset. However, she did experience sinus pain and pressure for two weeks prior to the onset of the eye symptoms. R eye painful, crusting, watery. Itchy [facility] Physical Exam BP 120/88 | Pulse 76 | Temp 95.9 F (35.5 C) (Infrared ) | Ht 5' 5" (1.651 m) | Wt 297 lb (134.7kg) | LMP 07/23/2017 | SpO2 92% | BMI 49.42 kg/m | BSA 2.49 m Physical Exam Vitals and nursing note reviewed. Constitutional: General: She is not in acute distress. HENT: Head: Normocephalic and atraumatic. Mouth/Throat: Mouth: Mucous membranes are moist. Eyes: Extraocular Movements: Extraocular movements intact. Conjunctiva/sclera: Right eye: Right conjunctiva is injected. Comments: Area of puffiness without discrete nodule/stye Neck: Thyroid: No thyromegaly. Cardiovascular: Rate and Rhythm: Normal rate and regular rhythm. Pulmonary: Breath sounds: Normal breath sounds. No wheezing or rhonchi. Musculoskeletal: Cervical back: Normal range of motion and neck supple. Skin: General: Skin is warm and dry. Findings: No lesion or rash. Neurological: General: No focal deficit present. Mental Status: She is alert and oriented to person, place, and time. Psychiatric: Mood and Affect: Mood normal. Behavior: Behavior normal. Assessment and Plan Assessment & Plan Conjunctivitis vs. Hordeolum Eye irritation suggests possible viral conjunctivitis or developing hordeolum, with noted communityexposure to pink eye. Prescribed eye ointment and advised warm compresses to the affected eye. Continue Sulindac (NSAID). Monitor symptoms and seek ophthalmology consultation if no improvement by week's end. Emphasized hand hygiene to prevent infection spread and instructed to avoid rubbing the eye and maintain hygiene. Tachycardia Tachycardia is controlled with metoprolol, with no issues reported. Continue metoprolol as prescribed. Acute bacterial conjunctivitis of right eye Type 2 diabetes mellitus with hemoglobin A1c goal of less than 7.0% (HCC) Stable on metformin, last A1C in Mar 6.8 Body mass index (BMI) of 45.0 to 49.9 in adult (HCC) Encourage healthy lifestyle Paroxysmal ventricular tachycardia (HCC) Stable on metoprolol, to continue. Wrap-Up Follow Up: Return if symptoms worsen or fail to improve. Time: I spent a total of 10-19 minutes (exact time 17 mins) on the date of service in preparation, delivery, and documentation of the care provided to Vero Watson excluding any time spent in the performance of separately billed services. Text in this note was generated using an [employer] documentation service. I discussed the use of a device to record and summarize our discussion today. All persons present during the encounter consented to its use. documented in this encounter Nursing Notes * Tish Barrett CMA - 09/06/2024 2:37 PM EDT Right eye Eye pain and drainage. Reports drainage is usually in AM has a lot of dry crustys and eyewaters all day, rates pain 1/10 unless she rubs it, itchy, but no pink in her conjunctiva. documented in this encounter Miscellaneous Notes * Pt Handout (on AVS) - Vetsa Donnelly MD - 09/06/2024 2:53 PM EDT Images from the original note were not included. [id number] Chalazion A chalazion is a slowly developing lump on the eyelid. It forms because of a blocked oil gland in the eyelid. The eyelids have oil glands that lubricate the inside of the lids. If a gland becomes blocked, the oil builds up and causes the skin to swell. A chalazion is a slow growing nodule that can take several weeks to grow. It can vary in size. It may appear on the inside or outside of the lid. In most cases, it occurs as a painless bump, on the upper lid because it has more oil glands. The skin may appear normal in color or may be red. A chalazion is usually not painful. But as it grows, it may cause mild pain, soreness, discomfort, sensitivity to light, eye discharge, and increased tearing. A chalazion often lasts from a few weeks to a month. It is typically benign and often goes away on its own. A chalazion can be mistaken for a sty (infection of an oil gland) because they both appear on the eyelid. Why a chalazion forms It?s often unclear why a chalazion appears. But a chalazion can develop when you have any of the following conditions: Chronic blepharitis. This is a swelling of the eyelids. Acne rosacea Seborrhea Tuberculosis Viral infection Home care If your healthcare provider finds that a chalazion is infected, they may prescribe an antibiotic drop or ointment. Use the medicine as directed. Wash your hands carefully with soap and clean, running water before and after caring for your eye. This is to help prevent infection. Apply a warm, moist towel or compress for 10 to 15 minutes, 3 to 4 times a day. This will reducethe swelling and soften the hardened oils blocking the duct. Massage the area gently after applying the warm compress to help drain the chalazion. Or follow your healthcare provider?s directions. Don?t try to pop or squeeze the chalazion. That may cause more damage. Don?t wear eye makeup until the chalazion has healed. Or follow your healthcare provider?s directions. It is advised that you replace mascara, eyeliner, and eye shadow every 3 months. Don?t wear contact lenses until the chalazion has healed. Or follow your healthcare provider?s directions. Once a day, with eyes closed, clean your eyelids with baby shampoo or a moist eyelid cleansing wipe. This is to help reduce clogging of the duct and prevent a chalazion from returning. Ask your healthcare provider about products to clean your eyelids. Follow-up care Follow up with your healthcare provider, or as advised. If the chalazion does not heal in 4 weeks, you may be referred to a healthcare provider who specializes in eye care (an furnace tapper or manager of radiology) for further evaluation and treatment. You may also be referred to an plastic eye technician if you h ave a large chalazion. When to get medical advice Call your healthcare provider right away if any of these occur: Chalazion returns to the same area repeatedly Symptoms get worse New symptoms appear. These include eye pain, warmth or redness around the eye, eye drainage, or both the upper and lower lids of the same eye swell. You have blurred vision You have a headache that doesn't go away You have a fever of 100.4F (38C) or higher, or as directed by your healthcare provider Last Reviewed Date: 2024 00:00:00 [id number] The [employer]. All rights reserved. This information is not intended as a substitute for professional medical care. Always follow your healthcare professional's instructions. documented in this encounter Plan of Treatment Upcoming Encounters Date Type Department Care Team (Late st Contact Info) Description 09/20/2024 10:00 AM EDT Office Visit Family Medicine [address] [phone] Abbey Calero PA-C [address] [place] [address] [place] [address] 03/24/2025 10:00 AM EDT Office Visit Allergy/Immunology [facility] [address] [place] [address] Haydee Parrish PA-C [address] [place] [address] 04/28/2025 10:40 AM EST Office Visit Family Medicine [address] [phone] Garett Bernal MD [address] [place] [address] [place] [address] 08/29/2025 10:00 AM EDT Imaging Radiology [address] [place] [address] Scheduled Procedures Name Priority Associated Diagnoses Date/Ti [...] Cancer Screening 02/07/2024 Pap Smear 02/07/2024 02/06/2021, 10/0 02/2017, 10/31/2013, Additional history exists COVID-19 Vaccine [...] as of this encounter Visit Diagnoses Diagnosis Acute bacterial conjunctivitis of right eye- Primary Type 2 diabetes mellitus with hemoglobin A1c goal of less than 7.0% (HCC) Body mass index (BMI) of 45.0 to 49.9 in adult (HCC) Paroxysmal ventricular tachycardia (HCC) Paroxysmal ventricular tachycardia Screening mammogram for breast cancer documented in this encounter Care Teams Robotic Maintenance Technician Relationship Specialty Start Date End Date Garett Bernal MD [address] [place] [address] [place] [address] PCP - General Family Medicine 01/13/24 documented as of this encounter
--- OUTSIDE RECORDS SUMMARY | 2024-09-10 03:23 | External Medical Summary ---
Author Name Unknown Address Unknown Organization [id number]:[facility] [place] - [facility] [address] [facility] [address] [facility] [address] Laboratory Report Ordering Provider Test Date Status ROLANDA PATEL 09/08/2024 10:39:52 Final Observation Date Value Abnormality Reference (Units ) Status WBC, Total 09/08/2024 10:39:52 4.93 4.00-10.80 (K/uL) Final RBC 09/08/2024 10:39:52 4.74 3.85-5.15 (M/uL) Final Hemoglobin 09/08/2024 10:39:52 13.6 12.0-15.3 (g/dL) Final HCT 09/08/2024 10:39:52 44.8 36.0-45.2 (%) Final MCV 09/08/2024 10:39:52 94.5 81.5-97.5 (fL) Final MCH 09/08/2024 10:39:52 28.7 27.0-34.0 (pg) Final MCHC 09/08/2024 10:39:52 30.4 32.0-36.0 (g/dL) Final RDW 09/08/2024 10:39:52 13.7 11.5-15.5 (%) Final Platelets 09/08/2024 10:39:52 227 140-400 (K/uL) Final MPV 09/08/2024 10:39:52 10.8 6.6-11.1 (fL) Final Nucleated erythrocytes/100 leukocytes [Ratio] in Blood by Automated count 09/08/2024 10:39:52 0 <=0 (/100 WBCs) Final Performing Location [facility] [place] - [address] [facility] [address]
--- OUTSIDE RECORDS SUMMARY | 2024-09-10 03:24 | External Medical Summary | Summary of Care ---
Author Name Unknown Organization [facility] Address [address] [place] [facility] [place] [place] [address] Phone [phone] Care Team Providers Care Single Pass Soil Stabilizer Operator Name Role Phone Garett Bernal MD Primary Care Provide r Reason for Visit * Reason Comments Pain Encounter Details Date Type Department Care Team (Latest Contact Info) Description 07/07/2024 1:00 PM EST Office Visit Orthopaedics [address] [phone] Johny Scanlon MD [address] [place] [address] Primary osteoarthritis of both knees* Allergies No known active allergiesdocumented as of this encounter (statuses as of 07/07/2024) Medications Probiotic Product (DIGESTIVE ADVANTAGE) CAPS One daily 7 Active Acetaminophen ER 650 MG Oral Tablet Extended Release Take 1 Tablet by mouth every 8 hours as needed for Fever. Active Biotin 1000 MCG Tablet Take 1 Tablet by mouth in the morning and 1 Tablet before bedtime. Active Blood Glucose Monitoring Suppl (OrbotixTOS[employer] ULTRA 2) w/Device KITIndications:T ype 2 diabetes mellitus with hemoglobin A1c goal of less than 7.0% ([facility]) Test blood sugar daily DxE11.9 1 Kit 0 Active OneTouch Delica Plus [id number] ions:Type 2 diabetes mellitus with hemoglobin A1c goal of less than 7.0% ([facility]) use to test blood sugar up to twice a day. DX e11.9 200 Each 3 2 Active Diclofenac Sodium 1 % External Gel (Voltaren) place 2gm topically on the skin 2 times a day. apply to affected area as directed 100 g 2 3 Active Vitamin D3 25 MCG (1000 UT) Oral Tablet Take 1 Tablet by mouth in the morning. Active Vitamin C Oral Tablet Chewable Take 1 Tablet by mouth in the morning. Active Atorvastatin Calcium 20 MG Oral Tablet (Lipitor) TAKE ONE TABLET BY MOUTH AT BEDTIME 90 Tablet 3 4 Active metFORMIN HCl 1000 MG Oral Tablet (Glucophage)Lilibeth cations:Type 2 diabetes mellitus with hemoglobin A1c goal of less than 7.0% ([facility]) take 1 tablet in the morning and 1 tablet in the evening with meals. 180 Tablet 3 4 Active Dulera 200-5 MCG/ACT Inhalation Aerosol (Mometasone-Form oterol) Inhale 2 Puffs by mouth in the morning and 2 Puffs before bedtime. 39 g 3 4 Active Triamcinolone Acetonide 0.1 % External Cream (Aristocort)Lilibeth cations:Other eczema Apply topically to affected area 2 times a day. apply topically to affected area 2 times per day. 90 g 1 4 Active OneTouch Ultra In Vitro Strip (Glucose Blood)Indication s:Type 2 diabetes mellitus with hemoglobin A1c goal of less than 7.0% ([facility]) test blood sugar twice daily 200 Strip 3 4 Active Sulindac 200 MG Oral TabletIndication s:Arthralgia of both hands,Pain in both feet TAKE ONE TABLET BY MOUTH IN THE MORNING AND ONE BEFORE BEDTIME 60 Tablet 5 4 Active Lisinopril 2.5 MG Oral Tablet (Prinivil) TAKE ONE TABLET BY MOUTH EVERY DAY 90 Tablet 1 4 Active Montelukast Sodium 10 MG Oral Tablet (Singulair) take one tablet by mouth once daily in the evening 90 Tablet 3 4 Active Metoprolol Tartrate 50 MG Oral Tablet (Lopressor)Indic ations:Paroxysma l ventricular tachycardia (HCC) TAKE ONE TABLET BY MOUTH TWICE DAILY 180 Tablet 3 4 Active [place]-3 Fish Oil 1000 MG Oral Capsule ([place]-3) Take 2 Capsules by mouth in the morning and 2 Capsules before bedtime. 4 Active Sertraline HCl 100 MG Oral Tablet (Zoloft)Indicati ons:Panic disorder TAKE ONE TABLET BY MOUTH IN THE MORNING 90 Tablet 1 4 Active Cetirizine HCl 10 MG Oral Tablet (ZyrTEC) TAKE ONE TABLET BY MOUTH IN THE MORNING 90 Tablet 4 Active Ventolin HFA 108 (90 Base) MCG/ACT Inhalation Aerosol Solution INHALE TWO PUFFS BY MOUTH EVERY FOUR HOURS NEEDED for cough, shortness of breath or wheezing 18 g 4 Active Cephalexin 500 MG Oral CapsuleIndicatio ns:Cellulitis of right leg Take 1 Capsule by mouth in the morning and 1 Capsule at noon and 1 Capsule in the evening and 1 Capsule before bedtime. Do all this for 10 days. 40 Capsule 5 07/11/19 25 Active Hospital, Clinic, or Other Facility Administered Medication Ordered Dose Route Frequency Start Date End Date Status Sodium Hyaluronate (Viscosup) (Euflexxa/Hyalgan) 20 MG/2ML inj 20 mgIndications:Primary osteoarthritis of both knees 20 mg IX ONCE 07/07/2024 07/07/2024 Ended Sodium Hyaluronate (Viscosup) (Euflexxa/Hyalgan) 20 MG/2ML inj 20 mgIndications:Primary osteoarthritis of both knees 20 mg IX ONCE 07/07/2024 07/07/2024 Ended documented as of this encounter (statuses as of 07/07/2024) Active Problems Problem Noted Date Diagnosed Date [...] as of this encounter (statuses as of 07/07/2024) Resolved Problems Problem Noted Date Diagnosed Date [...] as of this encounter (statuses as of 07/07/2024) Immunizations Name Administration Dates Next Due COVID-19 [...] on file documented as of this encounter Progress Notes * Johny Scanlon MD - 07/07/2024 1:00 PM EST Vero Khan [place] [id number] PROCEDURE NOTE: KNEE INJECTION (Euflexxa #3 BL) Laterality: Bilateral Time out: Prior to aspiration and injection, a time out was called to confirm the administration of appropriate medicine, patient name, procedure and confirm to the best of our ability and knowledge the presence of any necessary risks and benefits. Patient verbalized understanding. Ultrasound utilized to guide injection. During the procedure, the needle was visualized in plane and was advanced with continuous ultrasound guidance to the appropriate anatomical landmark as described in the procedure. Ultrasound required due to need to visualize specific joint recess and inject at this site. Sterile technique applied using gloves, chlorhexadine, and alcohol swabs. Ethyl chloride spray for local anesthetic. Knee aspirated at superior-lateral recess using 1.5 inch, 22 gauge needle. Knee then injected with Euflexxa. Patient tolerated procedure with no significant bleeding or adverse reaction. Patient instructed to call or return to clinic for fever, warmth, unusual redness at injection sitefor potential infection. Patient also advised regarding post-procedural pain. Plan: The patient will message me in 6 weeks. Aware these can be done every 6 months if needed. Also aware that prior authorization is needed before scheduling these injections. She reports the injections are already helping. So offered a follow up in 6-8 weeks in case she would like to have intra-articular steroid injections at that time. Her plan is to monitor symptoms andwill follow up p.r.n. Johny Scanlon MD Sports Medicine Primary Care Orthopaedics [address] [phone] documented in this encounter Plan of Treatment Upcoming Encounters Date Type Department Care Team (Late st Contact Info) Description 08/25/2024 12:30 PM EST Imaging Radiology [address] [place] [address] 09/20/2024 10:00 AM EDT Office Visit Family Medicine [address] [place] [phone] Abbey Calero PA-C [address] [place] [address] [place] [address] 03/24/2025 10:00 AM EDT Office Visit Allergy/Immunology [facility] [address] [place] [address] Haydee Parrish PA-C [address] [place] [address] 04/28/2025 10:40 AM EST Office Visit Family Medicine [address] [phone] Garett Bernal MD [address] [place] [address] [place] [address] Scheduled Orders Name Type Priority Associated Diagnoses Orde r Schedule POINT OF CARE US MAJOR JOINT INJECTION, ORTHO Medical Imaging Routine Primary osteoarthritis of both knees Ordered: 07/07/2024 Scheduled Procedures Name Priority Associated Diagnoses Date/Ti [...] as of this encounter Visit Diagnoses Diagnosis Primary osteoarthritis of both knees- Primary Primary localized osteoarthrosis, lower leg documented in this encounter Administered Medications Inactive Administered Medications - up to 3 most recent administrations Medication Order MAR Action Action Date Dose Rate Site Sodium Hyaluronate (Viscosup) (Euflexxa/Hyalgan) 20 MG/2ML inj 20 mg 20 mg, Intra-Articular, ONCE, On Dorinda 07/07/24 at 1345, For 1 doseIndications:Primary osteoarthritis of both knees Given 07/07/2024 1:39 PM EST 20 mg Knee Right Sodium Hyaluronate (Viscosup) (Euflexxa/Hyalgan) 20 MG/2ML inj 20 mg 20 mg, Intra-Articular, ONCE, On Dorinda 07/07/24 at 1345, For 1 doseIndications:Primary osteoarthritis of both knees Given 07/07/2024 1:39 PM EST 20 mg Knee Left documented in this encounter Care Teams Single Pass Soil Stabilizer Operator Relationship Specialty Start Date End Date Garett Bernal MD [address] [place] [address] [place] [address] PCP - General Family Medicine 01/13/24 documented as of this encounter
--- OUTSIDE RECORDS SUMMARY | 2024-09-10 03:24 | External Medical Summary | Summary of Care ---
Author Name Unknown Organization [facility] Address [address] [place] [place] [place] [address] Phone [phone] Care Team Providers Care Slip Filler Name Role Phone Garett Bernal MD Primary Care Provide r Reason for Visit * Reason Comments Pain Encounter Details Date Type Department Care Team (Latest Contact Info) Description 06/30/2024 1:00 PM EST Office Visit Orthopaedics [address] [phone] Johny Scanlon MD [address] [place] [address] Primary osteoarthritis of both knees* Allergies No known active allergiesdocumented as of this encounter (statuses as of 07/01/2024) Medications Probiotic Product (DIGESTIVE ADVANTAGE) CAPS One daily 7 Active Acetaminophen ER 650 MG Oral Tablet Extended Release Take 1 Tablet by mouth every 8 hours as needed for Fever. Active Biotin 1000 MCG Tablet Take 1 Tablet by mouth in the morning and 1 Tablet before bedtime. Active Blood Glucose Monitoring Suppl (MetastormTOUCH ULTRA 2) w/Device KITIndications: Type 2 diabetes mellitus with hemoglobin A1c goal of less than 7.0% ([facility]) Test blood sugar daily DxE11.9 1 Kit 0 Active OneTouch Delica Plus [id number] tions:Type 2 diabetes mellitus with hemoglobin A1c goal of less than 7.0% ([facility]) use to test blood sugar up to [...] hemoglobin A1c goal of less than 7.0% ([facility]) take 1 tablet in the morning and 1 tablet in the evening with meals. 180 Tablet 3 4 Active Dulera 200-5 MCG/ACT Inhalation Aerosol (Mometasone-For [...] hemoglobin A1c goal of less than 7.0% ([facility]) test blood sugar twice daily 200 Strip 3 4 Active Sulindac 200 MG Oral TabletIndicatio ns:Arthralgia [...] TWICE DAILY 180 Tablet 3 4 Active [place]-3 Fish Oil 1000 MG Oral Capsule ([place]-3) Take 2 Capsules by mouth in the [...] breath or wheezing 18 g 4 Active Ozempic (0.25 or 0.5 MG/DOSE) 2 MG/3ML Solution Pen-injector (Semaglutide(0. 25 or 0.5MG/DOS))Lilibeth cations:Type 2 diabetes mellitus with hemoglobin A1c goal of less than 7.0% ([facility]),Body mass index (BMI) of 45.0 to 49.9 in adult ([facility]) Inject 0.5 mg under the skin once a week. 3 mL 5 4 07/01/19 Discontinu ed(Medicat ion List Clean Up) Amoxicillin-Pot Clavulanate 875-125 MG Oral Tablet (Augmentin) Take 1 Tablet by mouth in the morning and 1 Tablet before bedtime. 14 Tablet 4 07/01/19 Discontinu ed(Medicat ion List Clean Up) Fluconazole 150 MG Oral Tablet (Diflucan) Take 1 Tablet by mouth once for 1 dose. 1 Tablet 1 4 07/01/19 Discontinu ed(Medicat ion List Clean Up) Hospital, Clinic, or Other Facility Administered Medication Ordered Dose Route Frequency Start Date End Date Status Sodium Hyaluronate (Viscosup) (Euflexxa/Hyalgan) 20 MG/2ML inj 20 mgIndications:Primary osteoarthritis of both knees 20 mg IX ONCE 06/30/2024 06/30/2024 Ended Sodium Hyaluronate (Viscosup) (Euflexxa/Hyalgan) 20 MG/2ML inj 20 mgIndications:Primary osteoarthritis of both knees 20 mg IX ONCE 06/30/2024 06/30/2024 Ended documented as of this encounter (statuses as of 07/01/2024) Active Problems Problem Noted Date Diagnosed Date [...] as of this encounter (statuses as of 07/01/2024) Resolved Problems Problem Noted Date Diagnosed Date [...] as of this encounter (statuses as of 07/01/2024) Immunizations Name Administration Dates Next Due COVID-19 [...] Progress Notes * Johny Scanlon MD - 06/30/2024 1:00 PM EST Vero Bill Watson [id number] PROCEDURE NOTE: KNEE INJECTION (Euflexxa #2 BL) Laterality: Bilateral Time out: Prior to [...] infection. Patient also advised regarding post-procedural pain. Johny Scanlon MD Sports Medicine Primary Care Orthopaedics [address] [phone] documented in this encounter Nursing Notes * Marily Cool LPN - 06/30/2024 12:49 PM EST -f/u -B/L knee -SECOND of a series EUFLEXXA injections today -Pt is unaccompanied Araceli Jones LPN documented in this encounter Plan of Treatment Upcoming Encounters Date Type Department Care Team (Late st Contact Info) Description 07/07/2024 1:00 PM EST Office Visit Orthopaedics [address] [phone] Johny Scanlon MD [address] [place] [address] 08/25/2024 12:30 PM EST Imaging Radiology [address] [place] [address] 09/20/2024 10:00 AM EDT Office Visit Family Medicine [address] [place] [address] Abbey Calero PA-C [address] [place] [address] [place] [address] 03/24/2025 10:00 AM EDT Office Visit Allergy/Immunology State [place]ie Aaron [address] [place] [address] Haydee Parrish PA-C [address] [place] [address] 04/28/2025 10:40 AM EST Office Visit Family Medicine [address] [place] [phone] Garett Bernal MD [address] [place] [address] [place] [address] Scheduled Orders Name Type Priority Associated Diagnoses Orde r Schedule POINT OF CARE US MAJOR JOINT INJECTION, ORTHO Medical Imaging Routine Primary osteoarthritis of both knees Ordered: 06/30/2024 Scheduled Procedures Name Priority Associated Diagnoses Date/Ti [...] mg 20 mg, Intra-Articular, ONCE, On Dorinda 06/30/24 at 1330, For 1 doseIndications:Primary osteoarthritis of both knees Given 06/30/2024 1:41 PM EST 20 mg Knee Right Sodium Hyaluronate (Viscosup) (Euflexxa/Hyalgan) 20 MG/2ML inj 20 mg 20 mg, Intra-Articular, ONCE, On Dorinda 06/30/24 at 1330, For 1 doseIndications:Primary osteoarthritis of both knees Given 06/30/2024 1:41 PM EST 20 mg Knee Left documented in this encounter Care Teams Slip Filler Relationship Specialty Start Date End Date Garett Bernal MD [address] [place] [address] [place] [address] PCP - General Family Medicine 01/13/24 documented as of this encounter
--- OUTSIDE RECORDS SUMMARY | 2024-09-10 03:24 | External Medical Summary | Summary of Care ---
Author Name Unknown Organization [facility] Address [address] [place] [place] [place] [address] Phone [phone] Care Team Providers Care Rod Placer Name Role Phone Garett Bernal MD Primary Care Provide r Reason for Visit * Reason Comments Pain Encounter Details Date Type Department Care Team (Latest Contact Info) Description 06/30/2024 1:00 PM EST Office Visit Orthopaedics [address] [phone] Johny Scanlon MD [address] [place] [address] Primary osteoarthritis of both knees* Allergies No known active allergiesdocumented as of this encounter (statuses as of 06/30/2024) Medications Probiotic Product (DIGESTIVE ADVANTAGE) CAPS One daily 7 Active Acetaminophen ER 650 MG Oral Tablet Extended Release Take 1 Tablet by mouth every 8 hours as needed for Fever. Active Biotin 1000 MCG Tablet Take 1 Tablet by mouth in the morning and 1 Tablet before bedtime. Active Blood Glucose Monitoring Suppl (FluencrTOSignostics ULTRA 2) w/Device KITIndications:T ype 2 diabetes mellitus with hemoglobin A1c goal of less than 7.0% ([facility]) Test blood sugar daily DxE11.9 1 Kit 0 Active OneTouch Delica Plus [id number] ions:Type 2 diabetes mellitus with hemoglobin A1c goal of less than 7.0% ([facility]) use to test blood sugar up to [...] hemoglobin A1c goal of less than 7.0% ([facility]) take 1 tablet in the morning and [...] hemoglobin A1c goal of less than 7.0% ([facility]) test blood sugar twice daily 200 Strip 3 4 Active Ozempic (0.25 or 0.5 MG/DOSE) 2 MG/3ML Solution Pen-injector (Semaglutide(0.2 5 or 0.5MG/DOS))Indic ations:Type 2 diabetes mellitus with hemoglobin A1c goal of less than 7.0% ([facility]),Body mass index (BMI) of 45.0 to 49.9 in adult ([facility]) Inject 0.5 mg under the skin once a week. 3 mL 5 4 Active Sulindac 200 MG Oral TabletIndication [...] TWICE DAILY 180 Tablet 3 4 Active Amoxicillin-Pot Clavulanate 875-125 MG Oral Tablet (Augmentin) Take 1 Tablet by mouth in the morning and 1 Tablet before bedtime. 14 Tablet 4 Active [place]-3 Fish Oil 1000 MG Oral Capsule ([place]-3) Take 2 Capsules by mouth in the [...] breath or wheezing 18 g 4 Active Hospital, Clinic, or Other Facility Administered [...] as of this encounter (statuses as of 06/30/2024) Active Problems Problem Noted Date Diagnosed Date [...] as of this encounter (statuses as of 06/30/2024) Resolved Problems Problem Noted Date Diagnosed Date [...] as of this encounter (statuses as of 06/30/2024) Immunizations Name Administration Dates Next Due COVID-19 [...] MD - 06/30/2024 1:00 PM EST Vero Watson [id number] PROCEDURE NOTE: KNEE INJECTION (Euflexxa #2 BL) [...] Scanlon MD Sports Medicine Primary Care Orthopaedics [address] [address] documented in this encounter Nursing Notes * Marily Cool LPN - 06/30/2024 12:49 PM EST -f/u -B/L knee -SECOND of a series EUFLEXXA injections today -Pt is unaccompanied Araceli Jones LPN documented in this encounter Plan of Treatment Upcoming Encounters Date Type Department Care Team (Late st Contact Info) Description 07/01/2024 2:40 PM EST Office Visit Family Medicine [address] [place] [phone] Jose Vargas CRNP [address] [place] [address] [place] [address] 07/07/2024 1:00 PM EST Office Visit Orthopaedics [address] [place] [phone] Johny Scanlon MD [address] [place] [address] 08/25/2024 12:30 PM EST Imaging Radiology [address] [place] [address] 09/20/2024 10:00 AM EDT Office Visit Family Medicine [address] [place] [phone] Abbey Calero PA-C [address] [place] [address] [place] [address] 03/24/2025 10:00 AM EDT Office Visit Allergy/Immunology [place] Aaron [address] [facility] [place] [address] Haydee Parrish PA-C [address] [place] [address] 04/28/2025 10:40 AM EST Office Visit Family Medicine [address] [place] [phone] Garett Bernal MD [address] [place] [address] [place] [address] Scheduled Orders Name Type Priority Associated Diagnoses [...] Additional history exists COVID-19 Vaccine ( - season) 2024 10/05/2020, 09/07/2020 Influenza Vaccine (FLU [...] Left documented in this encounter Care Teams Rod Placer Relationship Specialty Start Date End Date Garett Bernal MD [address] [place] [address] [place] [address] PCP - General Family Medicine 01/13/24 documented as of this encounter
--- OUTSIDE RECORDS SUMMARY | 2024-09-10 03:24 | External Medical Summary | Summary of Care ---
Author Name Unknown Organization [facility] Address [address] [place] [facility] [place] [address] Phone [phone] Care Team Providers Care Residential Installer Name Role Phone Mary Bernal MD Primary Care Provide r Reason for Visit * Reason Comments eRx-Medication Refill Encounter Details Date Type Department Care Team (Late st Contact Info) Description 07/07/2024 Refill Family Medicine [address] [phone] Abbey Calero PA-C [address] [place] [address] [place] [address] Allergies No known active allergiesdocumented as of [...] before bedtime. Active Blood Glucose Monitoring Suppl (ONETOUCH ULTRA 2) w/Device KITIndications: Type 2 diabetes mellitus with hemoglobin A1c goal of less than 7.0% ([facility]) Test blood sugar daily DxE11.9 1 Kit 01/11/20 20 Active OneTouch Delica Plus [id number] tions:Type 2 diabetes mellitus with hemoglobin A1c goal of less than 7.0% ([facility]) use to test blood sugar [...] daily 200 Strip 3 11/27/19 24 Active Sulindac 200 MG Oral TabletIndicatio ns:Arthralgia of both hands,Pain in both feet TAKE ONE TABLET BY MOUTH IN THE MORNING AND ONE BEFORE BEDTIME 60 Tablet 5 01/04/20 24 Active Montelukast Sodium 10 MG Oral Tablet (Singulair) take one tablet by mouth once daily in the evening 90 Tablet 3 01/13/20 24 Active Metoprolol Tartrate 50 MG Oral Tablet (Lopressor)Lilibeth cations:Paroxys mal ventricular tachycardia (HCC) TAKE ONE TABLET BY MOUTH TWICE DAILY 180 Tablet 3 02/27/20 24 Active [place]-3 Fish Oil 1000 MG Oral Capsule ([place]-3) Take 2 Capsules by mouth in the [...] DAY 90 Tablet 1 07/07/19 25 Active Lisinopril 2.5 MG Oral Tablet (Prinivil) TAKE ONE TABLET BY MOUTH EVERY DAY 90 Tablet 1 01/08/20 24 025 Discontinued documented as of this [...] encounter Miscellaneous Notes * Telephone Encounter - Kerry Silva [facility] - 07/07/2024 4:20 PM EST Signed Prescriptions: Disp Refills Lisinopril 2.5 MG Oral Tablet (Prinivil) 90 Tab*1 Sig: TAKE ONE TABLET BY MOUTH EVERY DAYAuthorizing Provider: MARY BERNAL User: KERRY SILVA documented in this encounter Plan of Treatment Upcoming Encounters Date Type Department Care Team (Late st Contact Info) Description 08/25/2024 12:30 PM EST Imaging Radiology [address] [place] [address] 09/20/2024 10:00 AM EDT Office Visit Family Medicine [address] [place] [phone] Abbey Calero PA-C [address] [place] [address] [place] [address] 03/24/2025 10:00 AM EDT Office Visit Allergy/Immunology [facility] [place] [address] Haydee Parrish PA-C [address] [facility] [place] [address] 04/28/2025 10:40 AM EST Office Visit Family Medicine [address] [place] [phone] Mary Bernal MD [address] [place] [address] [place] [address] Scheduled Procedures Name Priority Associated Diagnoses Date/Ti [...] filedocumented as of this encounter Care Teams Residential Installer Relationship Specialty Start Date End Date Mary Bernal MD [address] [place] [address] [place] [address] PCP - General Family Medicine 01/13/24 documented as of this encounter
--- OUTSIDE RECORDS SUMMARY | 2024-09-10 03:24 | External Medical Summary | Summary of Care ---
Author Name Unknown Organization [facility] Address [address] [place] [address] Phone [phone] Care Team Providers Care Company Miner Blasting Name Role Phone Garett Bernal MD Primary Care Provide r Reason for Visit * Reason Comments Pain Encounter Details Date Type Department Care Team (Latest Contact Info) Description 07/07/2024 1:00 PM EST Office Visit Orthopaedics [address] [phone] Johny Scanlon MD [address] [place] [address] Primary osteoarthritis of both knees* Allergies No [...] before bedtime. Active Blood Glucose Monitoring Suppl (FantasySalesTeamTOTraitWare ULTRA 2) w/Device KITIndications:T ype 2 diabetes mellitus with hemoglobin A1c goal of less than 7.0% ([facility]) Test blood sugar daily DxE11.9 1 Kit 0 Active OneTouch Delica Plus [id number] ions:Type 2 diabetes mellitus with hemoglobin A1c goal of less than 7.0% ([facility]) use to test blood sugar up [...] goal of less than 7.0% ([facility]) take 1 tablet in the morning and [...] goal of less than 7.0% ([facility]) test blood sugar twice daily 200 Strip [...] TWICE DAILY 180 Tablet 3 4 Active [place]-3 Fish Oil 1000 MG Oral Capsule ([place]-3) Take 2 Capsules by mouth in the [...] both knees 20 mg IX ONCE 07/07/2024 07/08/2024 Active Sodium Hyaluronate (Viscosup) (Euflexxa/Hyalgan) 20 MG/2ML inj 20 mgIndications:Primary osteoarthritis of both knees 20 mg IX ONCE 07/07/2024 07/08/2024 Active documented as of this encounter (statuses [...] 07/07/2024 1:00 PM EST Vero Khan Shirley [id number] PROCEDURE NOTE: KNEE INJECTION (Euflexxa #3 BL) [...] Scanlon MD Sports Medicine Primary Care Orthopaedics [address] [address] documented in this encounter Plan of Treatment Upcoming Encounters Date Type Department Care Team (Late st Contact Info) Description 07/07/2024 1:30 PM EST Imaging Radiology [address] [address] Arrived 08/25/2024 12:30 PM EST Imaging Radiology [address] [place] [address] 09/20/2024 10:00 AM EDT Office Visit Family [address] [phone] Abbey Calero PA-C [address] [place] [address] [place] [address] 03/24/2025 10:00 AM EDT Office Visit Allergy/Immunology [facility] [place] [address] [place] [address] Haydee Parrish PA-C [address] [place] [address] 04/28/2025 10:40 AM EST Office Visit Family [address] [phone] Garett Bernal MD [address] [place] [address] [place] [address] Scheduled Orders Name Type Priority Associated Diagnoses [...] osteoarthrosis, lower leg documented in this encounter Care Teams Company Miner Blasting Relationship Specialty Start Date End Date Garett Bernal MD [address] [place] [address] [place] [phone] PCP - General Family Medicine 01/13/24 documented as of this encounter
--- OUTSIDE RECORDS SUMMARY | 2024-09-10 03:24 | External Medical Summary | Summary of Care ---
Author Name Unknown Organization [facility] Address [address] [facility] [place] [address] Phone [phone] Care Team Providers Care Flavoring Maker Name Role Phone Garett Bernal MD Primary Care Provide r Reason for Visit * Reason Comments Pain Encounter Details Date Type Department Care Team (Latest Contact Info) Description 06/30/2024 1:00 PM EST Office Visit Orthopaedics [address] [phone] Johny Scanlon MD [address] [place] [address] Primary osteoarthritis of both knees* Allergies No [...] before bedtime. Active Blood Glucose Monitoring Suppl (FleecsTOMySkillBase Technologies ULTRA 2) w/Device KITIndications:T ype 2 diabetes mellitus with hemoglobin A1c goal of less than 7.0% ([facility]) Test blood sugar daily DxE11.9 1 Kit 0 Active OneTouch Delica Plus [id number] ions:Type 2 diabetes mellitus with hemoglobin A1c goal of less than 7.0% ([facility]) use to test blood sugar [...] hemoglobin A1c goal of less than 7.0% ([facility]) take 1 tablet in the [...] hemoglobin A1c goal of less than 7.0% ([facility]) test blood sugar twice daily 200 Strip 3 4 Active Ozempic (0.25 or 0.5 MG/DOSE) 2 MG/3ML Solution Pen-injector (Semaglutide(0.2 5 or 0.5MG/DOS))Indic ations:Type 2 diabetes mellitus with hemoglobin A1c goal of less than 7.0% ([facility]),Body mass index (BMI) of 45.0 to 49.9 in adult ([facility]) Inject 0.5 mg under the skin once [...] Tablet before bedtime. 14 Tablet 4 Active [place]-3 Fish Oil 1000 MG Oral Capsule ([place]-3) Take 2 Capsules by mouth in the [...] both knees 20 mg IX ONCE 06/30/2024 07/01/2024 Active Sodium Hyaluronate (Viscosup) (Euflexxa/Hyalgan) 20 MG/2ML inj 20 mgIndications:Primary osteoarthritis of both knees 20 mg IX ONCE 06/30/2024 07/01/2024 Active documented as of this encounter (statuses [...] - 06/30/2024 1:00 PM EST Vero Watson [id number] PROCEDURE NOTE: KNEE INJECTION (Euflexxa #2 BL) [...] Scanlon MD Sports Medicine Primary Care Orthopaedics [address] [phone] documented in this encounter Nursing Notes * Marily Cool LPN - 06/30/2024 12:49 PM EST -f/u -B/L knee -SECOND of a series EUFLEXXA injections today -Pt is unaccompanied Araceli Jones LPN documented in this encounter Plan of Treatment Upcoming Encounters Date Type Department Care Team (Late st Contact Info) Description 06/30/2024 1:30 PM EST Imaging Radiology [address] [place] [address] Arrived 07/01/2024 2:40 PM EST Office Visit Family [address] [phone] Jose Vargas CRNP [address] [place] [address] [place] [address] 07/07/2024 1:00 PM EST Office Visit Orthopaedics [address] [place] [phone] Johny Scanlon MD [address] [place] [address] 08/25/2024 12:30 PM EST Imaging Radiology [address] [place] [address] 09/20/2024 10:00 AM EDT Office Visit Family [address] [place] [phone] Abbey Calero PA-C [address] [place] [address] [place] [address] 03/24/2025 10:00 AM EDT Office Visit Allergy/Immunology [facility] [address] [place] [address] Haydee Parrish PA-C [address] [place] [address] 04/28/2025 10:40 AM EST Office Visit Family Medicine [address] [place] [phone] Garett Bernal MD [address] [place] [address] [place] [address] Scheduled Orders Name Type Priority Associated Diagnoses [...] leg documented in this encounter Care Teams Flavoring Maker Relationship Specialty Start Date End Date Garett Bernal MD [address] [place] [address] [place] [address] PCP - General Family Medicine 01/13/24 documented as of this encounter
--- OUTSIDE RECORDS SUMMARY | 2024-09-10 03:24 | External Medical Summary | Summary of Care ---
Author Name Unknown Organization [facility] Address [address] [place] [address] Phone [phone] Care Team Providers Care Seafood And Service Meat Manager Name Role Phone Garett Bernal MD Primary Care Provide r Reason for Visit * Reason Comments Acute Encounter Details Date Type Department Care Team (Late st Contact Info) Description 07/01/2024 2:40 PM EST Office Visit Family Medicine [address] [phone] Jose Vargas [address] [place] [phone] Cellulitis of right leg* Allergies No known active allergiesdocumented as of [...] before bedtime. Active Blood Glucose Monitoring Suppl (JamOriginTOUCH ULTRA 2) w/Device KITIndications: Type 2 diabetes mellitus with hemoglobin A1c goal of less than 7.0% ([facility]) Test blood sugar daily DxE11.9 1 Kit 0 Active OneTouch Delica Plus [id number] tions:Type 2 diabetes mellitus with hemoglobin A1c goal of less than 7.0% ([facility]) use to test blood sugar up to [...] TWICE DAILY 180 Tablet 3 4 Active Wyocena-3 Fish Oil 1000 MG Oral Capsule (Wyocena-3) Take 2 Capsules by mouth in the [...] g 4 Active Cephalexin 500 MG Oral CapsuleIndicati ons:Cellulitis of right leg Take 1 Capsule by mouth in the morning and 1 Capsule at noon and 1 Capsule in the evening and 1 Capsule before bedtime. Do all this for 10 days. 40 Capsule 5 07/11/19 25 Active Ozempic (0.25 or 0.5 MG/DOSE) 2 MG/3ML Solution Pen-injector (Semaglutide(0. 25 or 0.5MG/DOS))Lilibeth cations:Type 2 diabetes mellitus with hemoglobin A1c goal of less than 7.0% ([facility]),Body mass index (BMI) of 45.0 to 49.9 in adult ([facility]) Inject 0.5 mg under the skin once [...] 07/01/19 Discontinu ed(Medicat ion List Clean Up) documented as of this encounter (statuses as [...] & above, IM , (FluLaval or Fluzone) 03/23/2023,04/03/2021,03/28/2019,090 09/2017,07/14/2017 07/13/2018 Seasonal Influenza, Quadriva lent, No Preserve, IM 05/30/2015 TDAP, Age 7 and older, IM (Adacel) 08/18/2008 documented as of this encounter Social History Tobacco Use Types Packs/Day Years Used Date Smoking Tobacco: Never Smokeless Tobacco: Never Tobacco Cessation:Counseling Given: Not Answered Alcohol Use Standard Drinks/Week Comments Yes 0 [...] Sign Reading Time Taken Comments Blood Pressure 124/76 07/01/2024 2:33 PM EST Pulse 105 07/01/2024 2:33 PM EST Temperature 36.3 C (97.3 F) 07/01/2024 2:33 PM ES T Respiratory Rate 16 07/01/2024 2:33 PM EST Oxygen Saturation 95% 07/01/2024 2:33 PM EST Inhaled Oxygen Concentration - - Weight 134.3 kg (296 lb) 07/01/2024 2:33 PM EST Height - - Body Mass Index 49.26 03/22/2024 3:48 PM EDT documented in this encounter Nursing Notes * Samira Dos Santos LPN - 07/01/2024 2:30 PM EST Welt on right thigh since Thursday. documented in this encounter Plan of Treatment Upcoming Encounters Date Type Department Care Team (Late st Contact Info) Description 07/07/2024 1:00 PM EST Office Visit Orthopaedics [address] [phone] Johny Scanlon MD [address] [place] [address] 08/25/2024 12:30 PM EST Imaging Radiology [address] [place] [address] 09/20/2024 10:00 AM EDT Office Visit [address] Medicine [address] [phone] Abbey Calero PA-C [address] [place] [address] [place] [address] 03/24/2025 10:00 AM EDT Office Visit Allergy/Immunology [facility] [address] [place] [address] Haydee Parrish PA-C [address] [place] [address] 04/28/2025 10:40 AM EST Office Visit Family [address] [place] [phone] Garett Bernal MD [address] [place] [address] [place] [phone] Scheduled Procedures Name Priority Associated Diagnoses Date/Ti [...] as of this encounter Visit Diagnoses Diagnosis Cellulitis of right leg- Primary Cellulitis and abscess of leg, except foot documented in this encounter Care Teams Seafood And Service Meat Manager Relationship Specialty Start Date End Date Garett Bernal MD [address] [place] [address] [place] [phone] PCP - General Family Medicine 01/13/24 documented as of this encounter
--- OUTSIDE RECORDS SUMMARY | 2024-09-10 03:25 | External Medical Summary | Summary of Care ---
Author Name Unknown Organization [facility] Address [address] [place] [address] Phone [phone] Care Team Providers Care Senior Technical Specialist Name Role Phone Garett Bernal MD Primary Care Provide r Reason for Visit * Reason Comments eRx-Medication Refill Encounter Details Date Type Department Care Team (Late st Contact Info) Description 04/20/2024 Refill Allergy[facility]Immunology [facility] [address] [place] [address] Gordo Lozada MD [address] [place] [address] Allergies No known active allergiesdocumented as of this encounter (statuses as of 04/20/2024) Medications Medication Sig Dispensed Refills Start Date End Date Status Probiotic Product ([employer]VANTAGE) CAPS One daily 11/11/2016 Active Acetaminophen ER 650 MG Oral Tablet Extended Release Take 1 Tablet by mouth every 8 hours as needed for Fever. Active Biotin 1000 MCG Tablet Take 1 Tablet by mouth in the morning and 1 Tablet before bedtime. Active Blood Glucose Monitoring Suppl (VoolgoTOExit Games ULTRA 2) w/Device KITIndications:Ty pe 2 diabetes mellitus with hemoglobin A1c goal of less than 7.0% ([facility]) Test blood sugar daily DxE11.9 1 Kit 01/11/2020 Active OneTouch Delica Plus [id number] ons:Type 2 diabetes mellitus with hemoglobin A1c goal of less than 7.0% ([facility]) use to test blood sugar up to twice a day. DX e11.9 200 Each 3 03/10/2022 Active Diclofenac Sodium 1 % External Gel (Voltaren) place 2gm topically on the skin 2 times a day. apply to affected area as directed 100 g 2 11/11/2022 Active Vitamin D3 25 MCG (1000 UT) Oral Tablet Take 1 Tablet by mouth in the morning. Active Vitamin C Oral Tablet Chewable Take 1 Tablet by mouth in the morning. Active Atorvastatin Calcium 20 MG Oral Tablet (Lipitor) TAKE ONE TABLET BY MOUTH AT BEDTIME 90 Tablet 3 08/26/2023 Active metFORMIN HCl 1000 MG Oral Tablet (Glucophage)Indic ations:Type 2 diabetes mellitus with hemoglobin A1c goal of less than 7.0% ([facility]) take 1 tablet in the morning and 1 tablet in the evening with meals. 180 Tablet 3 09/04/2023 Active Dulera 200-5 MCG/ACT Inhalation Aerosol (Mometasone-Formo terol) Inhale 2 Puffs by mouth in the morning and 2 Puffs before bedtime. 39 g 3 10/29/2023 Active Triamcinolone Acetonide 0.1 % External Cream (Aristocort)Indic ations:Other eczema Apply topically to affected area 2 times a day. apply topically to affected area 2 times per day. 90 g 1 11/30/2023 Active OneTouch Ultra In Vitro Strip (Glucose Blood)Indications :Type 2 diabetes mellitus with hemoglobin A1c goal of less than 7.0% ([facility]) test blood sugar twice daily 200 Strip 3 11/27/2023 Active Ozempic (0.25 or 0.5 MG/DOSE) 2 MG/3ML Solution Pen-injector (Semaglutide(0.25 or 0.5MG/DOS))Indica tions:Type 2 diabetes mellitus with hemoglobin A1c goal of less than 7.0% ([facility]),Body mass index (BMI) of 45.0 to 49.9 in adult ([facility]) Inject 0.5 mg under the skin once a week. 3 mL 11/30/2023 Active Sulindac 200 MG Oral TabletIndications :Arthralgia of both hands,Pain in both feet TAKE ONE TABLET BY MOUTH IN THE MORNING AND ONE BEFORE BEDTIME 60 Tablet 5 01/04/2024 Active Lisinopril 2.5 MG Oral Tablet (Prinivil) TAKE ONE TABLET BY MOUTH EVERY DAY 90 Tablet 1 01/08/2024 Active Montelukast Sodium 10 MG Oral Tablet (Singulair) take one tablet by mouth once daily in the evening 90 Tablet 3 01/13/2024 Active Ventolin HFA 108 (90 Base) MCG/ACT Inhalation Aerosol Solution INHALE TWO PUFFS BY MOUTH EVERY FOUR HOURS NEEDED for cough, shortness of breath or wheezing 18 g 02/11/2024 Active Metoprolol Tartrate 50 MG Oral Tablet (Lopressor)Indica tions:Paroxysmal ventricular tachycardia (HCC) TAKE ONE TABLET BY MOUTH TWICE DAILY 180 Tablet 3 02/27/2024 Active Amoxicillin-Pot Clavulanate 875-125 MG Oral Tablet (Augmentin) Take 1 Tablet by mouth in the morning and 1 Tablet before bedtime. 14 Tablet 03/23/2024 Active Langley-3 Fish Oil 1000 MG Oral Capsule (Langley-3) Take 2 Capsules by mouth in the morning and 2 Capsules before bedtime. 03/23/2024 Active Sertraline HCl 100 MG Oral Tablet (Zoloft)Indicatio ns:Panic disorder TAKE ONE TABLET BY MOUTH IN THE MORNING 90 Tablet 1 03/31/2024 Active Cetirizine HCl 10 MG Oral Tablet (ZyrTEC) TAKE ONE TABLET BY MOUTH IN THE MORNING 90 Tablet 04/20/2024 Active Cetirizine HCl 10 MG Oral Tablet (ZyrTEC) TAKE ONE TABLET BY MOUTH IN THE MORNING 90 Tablet 01/20/2024 4 Discontinued documented as of this encounter (statuses as of 04/20/2024) Active Problems Problem Noted Date Diagnosed Date [...] and dander 03/04/2017 Paroxysmal ventricular tachycardia 02/09/2010 Overview: seen on memory loop Asthma, moderate persistent 01/07/2010 Panic disorder 03/04/2006 documented as of this encounter (statuses as of 04/20/2024) Resolved Problems Problem Noted Date Diagnosed Date Resolved Date Morbid obesity due to excess calories 11/09/2020 07/10/2023 Body mass index (BMI) of 50. 0 to 59.9 in adult 03/23/2017 11/01/2020 Overview: Per Obesity protocol #1 Asthma with severity to be determined 12/13/2009 01/07/2010 Overview: Per Asthma Taxonomy ICD-10 update of inactive term Asthma, allergic 04/01/2005 12/13/2009 Obesity, BMI not known 04/01/200505/05 Overview: 251 Obesity, morbid (more than 1 00 lbs over ideal weight or BMI > 40) 03/26/2017 Overview: Per Obesity protocol #1 documented as of this encounter (statuses as of 04/20/2024) Immunizations Name Administration Dates Next Due COVID-19 [...] Answer Date Recorded PHQ-2 Score 0 05/16/2019 Sex and Gender Information Value Date Recorded Sex Assigned at Female 07/15/2023 12:32 PM EST Gender Identity Female 07/15/2023 12:32 PM EST Sexual Orientation Straight 07/15/2023 12 :32 PM EST Job Start Date Occupation Industry Not on file Not on file Not on file documented as of this encounter Miscellaneous Notes * Telephone Encounter - Gabriel Parrish PA-C - 04/20/2024 4:19 PM EDT Signed Prescriptions: Disp Refills Cetirizine HCl 10 MG Oral Tablet (ZyrTEC) 90 Tab*0 Sig: TAKE ONE TABLET BY MOUTH IN THE MORNING Authorizing Provider: GABRIEL PARRISH * Telephone Encounter - Pamela Rodriguez LPN - 04/20/2024 3:00 PM EDTPending Prescriptions: Disp Refills Cetirizine HCl 10 MG Oral Tablet [Pharmacy*90 Tab*0 Sig: TAKE ONE TABLET BY MOUTH IN THE MORNING * Telephone Encounter - Pamela Rodriguez LPN - 04/20/2024 3:00 PM EDT Pending Prescriptions: Disp Refills Cetirizine HCl 10 MG Oral Tablet (ZyrTEC)*90 Tab*0 Sig: TAKE ONE TABLET BY MOUTH IN THE MORNING Last Visit: 03/23/2024 (in office), Visit date not found (telemedicine) Next Visit: 03/24/2025 Last date the medication was ordered: 01/20/24. Health Maintenance Topic Date Due HIV Screening Never done Hepatitis C Screening Never done Hepatitis B Vaccine (1 of 3 - 19+ 3-dose series) Never done Pneumococcal Vaccine: Pediatrics (0 to 5 Years) and At-Risk Patients (6 to 64 Years) (2 of 2 - PCV)03/08/2015 Zoster Vaccines (1 of 2) Never done DTap/Tdap Vaccines (2 - Td or Tdap) 08/18/2018 Depression Screening 05/16/2020 Diabetic Foot Exam 01/08/2024 Diabetic Eye Exam 02/05/2024 Cervical Cancer Screening 02/07/2024 Influenza Vaccine (FLU shot) (1) 02/21/2024 COVID-19 Vaccine (3 - 2023- season) 2024 Albumin/Creatinine Ratio 07/16/2024 Mammogram 08/23/2024 HbA1c 09/27/2024 GFR 03/29/2025 Colorectal Cancer Screening 12/03/2025 Lipid Panel 03/29/2029 MENINGOCOCCAL (MENACTRA/MENVEO) Aged Out HPV (Gardasil) Vaccine Aged Out Labs: Lab Results Component Value Date/Time CREATININE - [facility] 0.6 03/29/2024 10:39 AM CREATININE - [facility] 0.6 01/02/2020 02:20 PM CREATININE, RANDOM URINE - [facility] 109 07/16/2023 09:34 AM Lab Results Component Value Date/Time POTASSIUM - [facility] 4.4 03/29/2024 10:39 AM POTASSIUM - [facility] 3.9 01/02/2020 02:20 PM Lab Results Component Value Date/Time TSH - [facility] 1.91 11/11/2016 10:11 AM Lab Results Component Value Date/Time LDL (CALCULATED)-OUTSIDE LAB 73 04/16/2022 12:00 AM LDL CHOLESTEROL (CALCULATED) - [facility] 115 01/07/2023 10:22 AM LDL CHOLESTEROL (CALCULATED) - [facility] 123 05/28/2022 08:26 AM LDL CHOLESTEROL (CALCULATED) - [facility] 122 07/16/2020 07:34 AM LDL CHOLESTEROL (CALCULATED) - [facility] 86 11/11/2016 10:11 AM LDL CHOLESTEROL (DIRECT MEASURE) - [facility] 67 03/29/2024 10:39 AM LDL CHOLESTEROL (DIRECT MEASURE) - [facility] 72 07/16/2023 09:34 AM LDL CHOLESTEROL (DIRECT MEASURE) - [facility] NOT APPLICABLE 07/16/2020 07:34 AM LDL CHOLESTEROL (DIRECT MEASURE) - [facility] NOT APPLICABLE 11/11/2016 10:11 AM Lab Results Component Value Date/Time ALT - [facility] 24 03/29/2024 10:39 AM ALT - [facility] 26 07/16/2020 07:34 AM Hemoglobin AIC Results: Lab Results Component Value Date/Time HEMOGLOBIN A1C - [facility] 6.8 (H) 03/29/2024 10:39 AM HEMOGLOBIN A1C - [facility] 6.3 (H) 07/16/2023 09:34 AM HEMOGLOBIN A1C - [facility] 6.7 (H) 01/07/2023 10:22 AM HEMOGLOBIN A1C - [facility] 6.7 (H) 07/16/2020 07:34 AM HEMOGLOBIN A1C - [facility] 8.6 (H) 01/10/2020 10:45 AM documented in this encounter Plan of Treatment Upcoming Encounters Date Type Department Care Team (Late st Contact Info) Description 06/23/2024 1:00 PM EST Office Visit Orthopaedic[address] [phone] Johny Scanlon MD [address] [place] [address] 06/30/2024 1:00 PM EST Office Visit Orthopaedics [address] [phone] Johny Scanlon MD [address] [place] [address] 07/07/2024 1:00 PM EST Office Visit Orthopaedics [address] [phone] Johny Scanlon MD [address] [place] [address] 08/25/2024 12:30 PM EST Imaging Radiology [address] [place] [address] 09/20/2024 10:00 AM EDT Office Visit [address] [phone] Abbey Calero PA-C [address] [place] [address] [place] [address] 03/24/2025 10:00 AM EDT Office Visit [facility] [place] [address] [place] [address] Gabriel Parrish PA-C [address] [place] [address] 04/28/2025 10:40 AM EST Office Visit [address] [place] [phone] Garett Bernal MD [address] [place] [address] [place] [address] Scheduled Procedures Name Priority Associated Diagnoses Date/Ti me COLONOSCOPY FLEXIBLE PROXIMAL DIAGNOSTIC Recall Screen for colon cancer Health Maintenance Due Date Last Done Comments HIV Screening 1982 Hepatitis C Screening 1985 Hepatitis B Vaccine (1 of 3 - 19+ 3-dose series) 1986 HPV/Co-Test 1997 Cologuard 2012 Fecal Occult Blood Test 2012 Sigmoidoscopy 2012 Pneumococcal Vaccine: Pediatrics (0 to 5 Years) and At-Risk Patients (6 to 64 Years) (2 of 2 - PCV) 03/08/2015 03/08/2014 [...] filedocumented as of this encounter Care Teams Senior Technical Specialist Relationship Specialty Start Date End Date Garett Bernal MD [address] [place] [address] [place] [phone] PCP - General Family Medicine 01/13/24 documented as of this encounter
--- OUTSIDE RECORDS SUMMARY | 2024-09-10 03:25 | External Medical Summary | Summary of Care ---
Author Name Unknown Organization [facility] Address [address] [place] [address] Phone [phone] Care Team Providers Care Nut Cracker Name Role Phone Garett Bernal MD Primary Care Provide r Reason for Visit * Reason Comments Follow Up Knee Pain B/l knee Encounter Details Date Type Department Care Team (Latest Contact Info) Description 04/14/2024 10:30 AM EDT Office Visit Orthopaedics [address] [phone] Johny Scanlon MD [address] [place] [address] Primary osteoarthritis of both knees* Allergies No known active allergiesdocumented as of this encounter (statuses as of 04/15/2024) Medications Medication Sig Dispensed Refills Start Date End Date Status Probiotic Product (DIGESTIVE ADVANTAGE) CAPS One daily 11/11/2016 Active Acetaminophen ER 650 MG Oral Tablet Extended Release Take 1 Tablet by mouth every 8 hours as needed for Fever. Active Biotin 1000 MCG Tablet Take 1 Tablet by mouth in the morning and 1 Tablet before bedtime. Active Blood Glucose Monitoring Suppl (CopyteleUCH ULTRA 2) w/Device KITIndications:Type 2 diabetes mellitus with hemoglobin A1c goal of less than 7.0% ([facility]) Test blood sugar daily DxE11.9 1 Kit 01/11/2020 Active OneTouch Delica Plus [id number] :Type 2 diabetes mellitus with hemoglobin A1c goal of less than 7.0% ([facility]) use to test blood sugar [...] Active metFORMIN HCl 1000 MG Oral Tablet (Glucophage)Indicati ons:Type 2 diabetes mellitus with hemoglobin A1c goal of less than 7.0% ([facility]) take 1 tablet in the morning and 1 tablet in the evening with meals. 180 Tablet 3 09/04/2023 Active Dulera 200-5 MCG/ACT Inhalation Aerosol (Mometasone-Formoter ol) Inhale 2 Puffs by mouth in the morning and 2 Puffs before bedtime. 39 g 3 10/29/2023 Active Triamcinolone Acetonide 0.1 % External Cream (Aristocort)Indicati ons:Other eczema Apply topically to affected area 2 times a day. apply topically to affected area 2 times per day. 90 g 1 11/30/2023 Active OneTouch Ultra In Vitro Strip (Glucose Blood)Indications:Ty pe 2 diabetes mellitus with hemoglobin A1c goal of less than 7.0% ([facility]) test blood sugar twice daily 200 Strip 3 11/27/2023 Active Ozempic (0.25 or 0.5 MG/DOSE) 2 MG/3ML Solution Pen-injector (Semaglutide(0.25 or 0.5MG/DOS))Indicatio ns:Type 2 diabetes mellitus with hemoglobin A1c goal of less than 7.0% ([facility]),Body mass index (BMI) of 45.0 to 49.9 in adult ([facility]) Inject 0.5 mg under the skin once a week. 3 mL 11/30/2023 Active Sulindac 200 MG Oral TabletIndications:Ar thralgia of both hands,Pain in both feet TAKE ONE TABLET BY MOUTH IN THE MORNING AND ONE BEFORE BEDTIME 60 Tablet 5 01/04/2024 Active Lisinopril 2.5 MG Oral Tablet (Prinivil) TAKE ONE TABLET BY MOUTH EVERY DAY 90 Tablet 1 01/08/2024 Active Montelukast Sodium 10 MG Oral Tablet (Singulair) take one tablet by mouth once daily in the evening 90 Tablet 3 01/13/2024 Active Cetirizine HCl 10 MG Oral Tablet (ZyrTEC) TAKE ONE TABLET BY MOUTH IN THE MORNING 90 Tablet 01/20/2024 Active Ventolin HFA 108 (90 Base) MCG/ACT Inhalation Aerosol Solution INHALE TWO PUFFS BY MOUTH EVERY FOUR HOURS NEEDED for cough, shortness of breath or wheezing 18 g 02/11/2024 Active Metoprolol Tartrate 50 MG Oral Tablet (Lopressor)Indicatio ns:Paroxysmal ventricular tachycardia (HCC) TAKE ONE TABLET BY MOUTH TWICE DAILY 180 Tablet 3 02/27/2024 Active Amoxicillin-Pot Clavulanate 875-125 MG Oral Tablet (Augmentin) Take 1 Tablet by mouth in the morning and 1 Tablet before bedtime. 14 Tablet 03/23/2024 Active Versailles-3 Fish Oil 1000 MG Oral Capsule (Versailles-3) Take 2 Capsules by mouth in the morning and 2 Capsules before bedtime. 03/23/2024 Active Sertraline HCl 100 MG Oral Tablet (Zoloft)Indications: Panic disorder TAKE ONE TABLET BY MOUTH IN THE MORNING 90 Tablet 1 03/31/2024 Active Hospital, Clinic, or Other Facility Administered Medication Ordered Dose Route Frequency Start Date End Date Status lidocaine 1 % inj 10 mgIndications:Primary osteoarthritis of both knees 10 mg IX ONCE 04/14/2024 04/14/2024 Ended Triamcinolone Acetonide (Kenalog) 40 MG/ML inj 40 mgIndications:Primary osteoarthritis of both knees 40 mg IX ONCE 04/14/2024 04/14/2024 Ended lidocaine 1 % inj 10 mgIndications:Primary osteoarthritis of both knees 10 mg IX ONCE 04/14/2024 04/14/2024 Ended Triamcinolone Acetonide (Kenalog) 40 MG/ML inj 40 mgIndications:Primary osteoarthritis of both knees 40 mg IX ONCE 04/14/2024 04/14/2024 Ended documented as of this encounter (statuses as of 04/15/2024) Active Problems Problem Noted Date Diagnosed Date [...] as of this encounter (statuses as of 04/15/2024) Resolved Problems Problem Noted Date Diagnosed Date [...] as of this encounter (statuses as of 04/15/2024) Immunizations Name Administration Dates Next Due COVID-19 [...] Progress Notes * Johny Scanlon MD - 04/14/2024 10:12 AM EDT Vero Montes [id number] Vero Montes is a 58 year old female who presents for f/u to [facility] for left greater than right knee injury/pain. I saw her originally for bilateral knee pain on 02/24/18 Most recent visit regarding bilateral knee pain was on 02/04/2024 and was a telephone encounter Vero Montes is here unaccompanied Quality: reviewed and agree with Nursing Notes for HPI elements History: History on 02/24/18 - presents for evaluation of left greater than right knee pain. The left knee hasbeen bothering her since September of 2017. The right knee pain just started hurting her the over the past week. I have read her most recent visit from her primary care office. She was seen on 02/23/2018and I have read the note from that visit. In summary: Medications tried thus far include ibuprofen,Tylenol arthritis which have not helped. She also try prednisone which caused her heart to race. Tramadol also helped but she had run out of that by the time she was visiting her primary care office.She does not desire to go to physical therapy as she does not understand how would help. 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 At that visit she was given a prescription for diclofenac as well as tramadol. The majority of the patient's knees located along the medial joint line. Regardingthe left knee she has had an MRI and x- ray. Those are both described below. She just had a x-ray ofher right knee yesterday that is also described below. No locking or instability of either knee. Additional history 03/25/2019: Since that visit on 05/06/2018 the patient had been doing very well. However several months ago herpain did return. Now has bad enough that she would like repeat injections. Most recent visit with myself was on 11/21/2020: Follow up for bilateral knee pain. Pt last seen for this in Mar 2019. Pt notes improvement after steroid injections in 2017, but now progressively getting worse. Pt notes difficulty with work task due to pain. Pain is greatest along the medial joint bilaterally. No locking or instability. Additional history 02/03/2023: Seen for completion of viscosupplementation series with Euflexxa by Dr. Darrell Edmonds DO who was a sports medicine fellow working with my colleague Celestino Duff DO (primary care sports medicine). Thatseries was completed on 09/03/2022. Reports that injection series did not help at all. Additional history on 09/18/2023: f/u B/L knee pain with activity Going to PT 24 sessions so far is helping ROM is better level is 5/10 but just worked 7 hrs Additional history 02/04/2024 Viscosupplementation with Euflexxa completed on 12/03/23 in the left knee and 12/10/2023 in the rightknee has helped her substantially in both knees. She is very pleased. Since that visit: She did receive benefit from bilateral viscosupplementation which was initially significant. His however she reports that benefit has started to decrease. Therefore she got approximately 4 months of substantial benefit. ROS: ROS per HPI otherwise non-contributory Past Medical History: Diagnosis Date Asthma, allergic 1986 Asthma, moderate persistent 01/07/2010 BMI 40.0-44.9, adult ([facility]) Combined senile cataract 02/05/2023 [facility], no diabetic retinopathy Obesity, morbid (more than 100 lbs over ideal weight or BMI > 40) ([facility]) Palpitation Panic disorder Paroxysmal ventricular tachycardia ([facility]) 02/09/2010 seen on memory loop Plantar fasciitis of right foot 05/05/2012 Type 2 diabetes mellitus with hemoglobin A1c goal of less than 7.0% ([facility]) 01/11/2020 Family History Problem Relation Name Age of Onset Hypertension Mother Stroke Mother Diabetes Father Allergies Sister nasal allergies Breast Cancer Sister Allergies Brother 2 brothers with allergic rhinitis Heart Disorder Brother 49 [place], stent in LAD Diabetes Grandmother (Maternal) Breast Cancer Grandmother (Maternal) Diabetes Grandmother (Paternal) Breast Cancer Grandmother (Paternal) Social History Socioeconomic History Marital status: Spouse name: Not on file Number of children: 2 Years of education: Not on file Highest education level: Not on file Occupational History Employer: [employer] Social Needs Financial resource strain: Not on file Food insecurity: Worry: Not on file Inability: Not on file Transportation needs: Medical: Not on file Non-medical: Not on file Tobacco Use Smoking status: Never Smoker Smokeless tobacco: Never Used Substance and Sexual Activity Alcohol use: No Drug use: No Sexual activity: Not Currently Partners: Male control/protection: Surgical Comment: tubal Lifestyle Physical activity: Days per week: Not on file Minutes per session: Not on file Stress: Not on file Relationships Social connections: Talks on phone: Not on file Gets together: Not on file Attends anabaptist service: Not on file Active member of club or organization: Not on file Attends meetings of clubs or organizations: Not on file Relationship status: Not on file Intimate partner violence: Fear of current or ex partner: Not on file Emotionally abused: Not on file Physically abused: Not on file Forced sexual activity: Not on file Other Topics Concern Not on file Social History Narrative Not on file Physical Exam Constitutional: generally well-nourished and in no acute distress Psychiatric: Mood and Affect normal Eyes: EOMI Respiratory: normal respiratory effort with regular rate and rhythm Cardiovascular: no edema in the affected extremity (s) Limited bilateral knee evaluation revealed no erythema, no effusion Radiology (I have personally reviewed the following films): 09/18/2023: Three-view x-ray of the left knee Moderate to severe medial and patellofemoral compartment djd - per my interpretation. formal radiology interpretation is as follows: FINDINGS Knee joint effusion. Moderate tricompartment osteoarthritis and coronal shift. IMPRESSION Moderate osteoarthritis. 08/12/2022: Three-view x-ray of the right knee IMPRESSION: Moderate to severe medial and to a lesser extent lateral and patellofemoral compartment osteoarthritis, possibly slightly more pronounced involving the medial compartment compared to the prior study. 08/12/2022: Three-view x-ray of the left knee IMPRESSION: Moderate to severe medial and to a lesser extent lateral and patellofemoral compartment osteoarthritis, possibly slightly more pronounced involving the medial compartment compared to the prior study. 11/21/2020: Three-view x-ray bilateral knee Tricompartmental bilateral, greatest medially where there is moderate to severe narrowing of the medial joint Progressed from previous 02/23/2018: Four view x-ray of the right knee Impression: Mild arthritis in the medial compartment of the right knee 10/12/2017: MRI Of the left knee IMPRESSION: 1. LEFT medial collateral ligament (MCL) low-grade (grade 1) sprain. 2. Mild tricompartmental LEFT knee osteoarthritis, greatest medially. 09/21/2017: Four view x-ray of the left knee IMPRESSION Mild osteoarthritis in the medial compartment of the left knee. Assessment and Plan: 1) chronic bilateral knee pain Suspect secondary to DJD which is greatest in the medial compartment and now rated moderate to severe bilaterally Previous steroid injections I have provided are on dates: 02/24/2018 (left only), 03/18/2018 (right only), 03/25/2019 (bilateral), 11/21/2020 (left knee only) Gave her substantial benefit However approximately 2 weeks after steroid injections performed on 11/21/2020 (left knee only) shereported a significant spike in her blood glucose and desired to try viscosupplementation. However, her blood sugar is better controlled now than at that time. She was willing to try a repeat steroid injection. She is able to take her blood sugar and for significant increases she will callher primary care office. Intra-articular steroid injection performed 09/18/2023 (left only) Note: Upon further discussion she reports that her blood glucose went into the 200s following previous bilateral steroid injections. I discussed with her that with her hemoglobin A1c yet would be willing to do injections again but would likely not do them and same day. Viscosupplementation with Euflexxa completed by 1 of my colleagues on 09/03/2022 in the bilateral knee did not help at all initially but later they should thinks it helped. She has done a course of physical therapy in the past Viscosupplementation with Euflexxa completed on 12/03/23 in the left knee and 12/10/2023 in the rightknee has helped her substantially in both knees. She did receive benefit from bilateral viscosupplementation which was initially significant. His however she reports that benefit has started to decrease. Therefore she got approximately 4 months of substantial benefit. Repeat bilateral intra-articular steroid injections performed today with ultrasound guidance She was aware that viscosupplementation can be done every 6 months if needed but we would need prior authorization. She will follow up p.r.n.. Most recent hemoglobin A1c from 03/29/2024 was 6.8 PROCEDURE NOTE: KNEE INJECTION - ULTRASOUND Laterality: Bilateral Time out: Prior to injection, a time out was called to [...] in the procedure. Ultrasound required due to failed previous injection done without fluoroscopic or ultrasound guidance Sterile technique applied using gloves, chlorhexadine, and alcohol swabs. Ethyl chloride spray for local anesthetic. Knee injected at superior-lateral recess 1.5 inch, 22 gauge needle. Injected with 1 mL Lidocaine 1%- 1 mL Triamcinolone Acetonide 40 mg/mL >> inject 2 mL. Patient tolerated procedure with no significant bleeding or adverse reaction. Patient instructed to call or return to clinic for fever, warmth, unusual redness at injection sitefor potential infection. Patient also advised regarding post-procedural pain. 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 Pt is unaccompanied today Araceli Jones LPN documented in this encounter Plan of Treatment Upcoming Encounters Date Type Department Care Team (Late st Contact Info) Description 06/23/2024 1:00 PM EST Office Visit Orthopaedics [address] [phone] Johny Scanlon MD [address] [place] [address] 06/30/2024 1:00 PM EST Office Visit Orthopaedics [address] [phone] Johny Scanlon MD [address] [place] [address] 07/07/2024 1:00 PM EST Office Visit Orthopaedics [address] [phone] Johny Scanlon MD [address] [place] [address] 08/25/2024 12:30 PM EST Imaging Radiology [address] [place] [address] 09/20/2024 10:00 AM EDT Office Visit Family Medicine [address] [place] [phone] Abbey Calero PA-C [address] [place] [address] [place] [id number] 03/24/2025 10:00 AM EDT Office Visit Allergy/Immunology [facility] [address] [place] [address] Haydee Parrish PA-C [address] [facility] [place] [address] 04/28/2025 10:40 AM EST Office Visit Family Medicine [address] [place] [phone] Garett Bernal MD [address] [place] [address] [place] [id number] Scheduled Procedures Name Priority Associated Diagnoses Date/Ti [...] 04/03/2021, 03/28/2019, Additional history exists Albumin/Creatinine Ratio 07/16/202407/16/ 024, 05/28/2022, 07/24/2020 Mammogram 08/23/2024 08/24/2023, 07/23, [...] Not on filedocumented as of this encounter Procedures Procedure Name Priority Date/Time Associated Diagnosis Comments POINT OF CARE US MAJOR JOINT INJECTION, ORTHO Routine 04/14/2024 6:07 PM EDT Primary osteoarthritis of both knees documented in this encounter Results * POINT OF CARE US MAJOR JOINT INJECTION, ORTHO (04/14/2024 6:07 PM EDT) Anatomical Region Laterality Modality Musculoskeletal Radiographic July ging 04/14/2024 6:07 PM EDT Narrative 04/15/2024 9:28 AM EDT Patient Name: VERO MONTES : 1965 (58y) Female Performing Provider: Johny Scanlon (digitally signed Apr 15, 2024 09:28 EDT) Attending: Johny Scanlon (digitally signed Apr 15, 2024 09:28 EDT) [Impression] : PROCEDURE NOTE: KNEE INJECTION - ULTRASOUND Laterality: Bilateral Time out: Prior to injection, a time out was called to [...] in the procedure. Ultrasound required due to failed previous injection done without fluoroscopic or ultrasound guidance Sterile technique applied using gloves, chlorhexadine, and alcohol swabs. Ethyl chloride spray for local anesthetic. Knee injected at superior-lateral recess 1.5 inch, 22 gauge needle. Injected with 1 mL Lidocaine 1% - 1 mL Triamcinolone Acetonide 40 mg/mL >> inject 2 mL. Patient tolerated procedure with no significant bleeding or adverse reaction. Procedure Note Johny Scanlon MD - 04/15/2024 Patient Name: VERO MONTES : 1965 (58y) Female Performing Provider: Johny Scanlon (digitally signed Apr 15, 2024 09:28EDT) Attending: Johny Scanlon (digitally signed Apr 15, 2024 09:28 EDT) [Impression] : PROCEDURE NOTE: KNEE INJECTION - ULTRASOUND Laterality: Bilateral Time out: Prior to injection, a time out was called to confirm the administration ofappropriate medicine, patient name, procedure and confirm to the best ofour ability and knowledge the presence of any necessary risks andbenefits. Patient verbalized understanding. Ultrasound utilized to guide injection. During the procedure, the needle was visualized in plane and was advancedwith continuous ultrasound guidance to the appropriate anatomical landmarkas described in the procedure. Ultrasound required due to failed previous injection done withoutfluoroscopic or ultrasound guidance Sterile technique applied using gloves, chlorhexadine, and alcoholswabs. Ethyl chloride spray for local anesthetic. Knee injected at superior-lateral recess 1.5 inch, 22 gauge needle.Injected with 1 mL Lidocaine 1% - 1 mL Triamcinolone Acetonide 40 mg/mL >>inject 2 mL. Patient tolerated procedure with no significant bleeding or adversereaction. Johny Scanlon MD RAD ULTRASO UND documented in this encounter Visit Diagnoses Diagnosis Primary osteoarthritis of both knees- Primary Primary localized osteoarthrosis, lower leg documented in this encounter Administered Medications Inactive Administered Medications - up to 3 most recent administrations Medication Order MAR Action Action Date Dose Rate Site lidocaine 1 % inj 10 mg 10 mg, Intra-Articular, ONCE, On Dorn[place] 04/14/24 at 1100, For 1 dose Given 04/14/2024 11:34 AM EDT 10 mg Knee Left lidocaine 1 % inj 10 mg 10 mg, Intra-Articular, ONCE, On Dorinda 04/14/24 at 1100, For 1 dose Given 04/14/2024 11:35 AM EDT 10 mg Knee Right Triamcinolone Acetonide (Kenalog) 40 MG/ML inj 40 mg 40 mg, Intra-Articular, ONCE, On [place] 04/14/24 at 1100, For 1 dose Given 04/14/2024 11:35 AM EDT 40 mg Knee Right Triamcinolone Acetonide (Kenalog) 40 MG/ML inj 40 mg 40 mg, Intra-Articular, ONCE, On [place] 04/14/24 at 1100, For 1 dose Given 04/14/2024 11:34 AM EDT 40 mg Knee Left documented in this encounter Care Teams Nut Cracker Relationship Specialty Start Date End Date Garett Bernal MD [address] [place] [address] [place] [id number] PCP - General Family Medicine 01/13/24 documented as of this encounter
--- OUTSIDE RECORDS SUMMARY | 2024-09-10 03:25 | External Medical Summary | Summary of Care ---
Author Name Unknown Organization [facility] Address [address] [place] [facility] [place] [address] Phone [phone] Care Team Providers Care Director Supply Chain Name Role Phone Garett Bernal MD Primary Care Provide r Encounter Details Date Type Department Care Team (Latest Contact Info) Description 06/23/2024 1:00 PM EST Office Visit Orthopaedics [address] [phone] Johny Scanlon MD [address] [place] [address] Primary osteoarthritis of both knees*; Knee effusion, left; Knee effusion, right Allergies No known active allergiesdocumented as of this encounter (statuses as of 06/23/2024) Medications Probiotic Product (DIGESTIVE ADVANTAGE) CAPS One daily 7 Active Acetaminophen ER 650 MG Oral Tablet Extended Release Take 1 Tablet by mouth every 8 hours as needed for Fever. Active Biotin 1000 MCG Tablet Take 1 Tablet by mouth in the morning and 1 Tablet before bedtime. Active Blood Glucose Monitoring Suppl ([employer] ULTRA 2) w/Device KITIndications:T ype 2 diabetes mellitus with hemoglobin A1c goal of less than 7.0% ([facility]) Test blood sugar daily DxE11.9 1 Kit 0 Active OneTouch Delica Plus [id number] ions:Type 2 diabetes mellitus with hemoglobin A1c goal of less than 7.0% ([facility]) use to test blood sugar up [...] goal of less than 7.0% ([facility]) take 1 tablet in the morning [...] goal of less than 7.0% ([facility]) test blood sugar twice daily 200 Strip 3 4 Active Ozempic (0.25 or 0.5 MG/DOSE) 2 MG/3ML Solution Pen-injector (Semaglutide(0.2 5 or 0.5MG/DOS))Indic ations:Type 2 diabetes mellitus with hemoglobin A1c goal of less than 7.0% ([facility]),Body mass index (BMI) of 45.0 to 49.9 in adult ([facility]) Inject 0.5 mg under the skin once [...] Tablet before bedtime. 14 Tablet 4 Active Hoffmeister-3 Fish Oil 1000 MG Oral Capsule (Hoffmeister-3) Take 2 Capsules by mouth in the [...] of both knees 20 mg IX ONCE 06/23/2024 06/24/2024 Active Sodium Hyaluronate (Viscosup) (Euflexxa/Hyalgan) 20 MG/2ML inj 20 mgIndications:Primary osteoarthritis of both knees 20 mg IX ONCE 06/23/2024 06/24/2024 Active documented as of this encounter (statuses as of 06/23/2024) Active Problems Problem Noted Date Diagnosed Date [...] as of this encounter (statuses as of 06/23/2024) Resolved Problems Problem Noted Date Diagnosed Date [...] as of this encounter (statuses as of 06/23/2024) Immunizations Name Administration Dates Next Due COVID-19 [...] Progress Notes * Johny Scanlon MD - 06/23/2024 1:00 PM EST Vero Watson [id number] PROCEDURE NOTE: KNEE ASPIRATION/INJECTION Laterality: Bilateral Time out: Prior to aspiration [...] need to visualize specific joint recess and aspirate/inject at this site. Sterile technique applied using gloves, chlorhexadine, and alcohol swabs. Ethyl chloride spray for local anesthetic. Knee aspirated at superior-lateral recess using 1.5 inch, 18 gauge needle. 22 mL of straw-colored fluid aspirated on L and 35 mL of straw-colored fluid aspirated on R. Knee then injected with Euflexxa. Patient tolerated procedure with no significant bleeding or adverse reaction. Patient instructed to call or return to clinic for fever, warmth, unusual redness at injection sitefor potential infection. Patient also advised regarding post-procedural pain. Aspirated fluid from the right knee sent for cell count and crystals. Did not send for culture as Colt not suspect septic joint. Johny Scanlon MD Sports Medicine Primary Care Orthopaedics [address] [phone] documented in this encounter Plan of Treatment Upcoming Encounters Date Type Department Care Team (Late st Contact Info) Description 06/30/2024 1:00 PM EST Office Visit Orthopaedics [address] [phone] Johny Scanlon MD [address] [place] [address] 07/07/2024 1:00 PM EST Office Visit Orthopaedics [address] [phone] Johny Scanlon MD [address] [place] [address] 08/25/2024 12:30 PM EST Imaging Radiology [address] [place] [address] 09/20/2024 10:00 AM EDT Office Visit Family Medicine [address] [phone] Abbey Calero PA-C [address] [place] [address] [place] [address] 03/24/2025 10:00 AM EDT Office Visit Allergy/Immunology State Lexie Aaron [address] [place] [address] Haydee Parrish PA-C [facility] [place] [address] 04/28/2025 10:40 AM EST Office Visit Family Medicine [address] [place] [phone] Garett Bernal MD [address] [place] [address] [place] [address] Pending Results Name Type Priority Associated Diagnoses Date /Time CRYSTAL ANALYSIS, BODY FLUID Lab Routine Knee effusion, right 06/23/2024 2:02 PM EST CELL COUNT WITH DIFFERENTIAL, SYNOVIAL FLUID Lab Routine Knee effusion, right 06/23/2024 2:00 PM EST CELL COUNT, SYNOVIAL FLUID Lab Routine Knee effusion, right 06/23/2024 2:00 PM EST MANUAL DIFFERENTIAL, SYNOVIAL FLUID Lab Routine Knee effusion, right 06/23/2024 2:00 PM EST Scheduled Orders Name Type Priority Associated Diagnoses Orde r Schedule CRYSTAL ANALYSIS, BODY FLUID Lab Routine Knee effusion, right Expected: 06/23/2024, Expires: 06/23/2025 CELL COUNT WITH DIFFERENTIAL, SYNOVIAL FLUID Lab Routine Knee effusion, right Expected: 06/23/2024, Expires: 06/23/2025 POINT OF CARE US MAJOR JOINT INJECTION, ORTHO Medical Imaging Routine Primary osteoarthritis of both knees Knee effusion, left Knee effusion, right Ordered: 06/23/2024 Scheduled Procedures Name Priority Associated Diagnoses Date/Ti [...] knees- Primary Primary localized osteoarthrosis, lower leg Knee effusion, left Effusion of lower leg joint Knee effusion, right Effusion of lower leg joint documented in this encounter Care Teams Director Supply Chain Relationship Specialty Start Date End Date Garett Bernal MD [address] [place] [address] [place] [phone] PCP - General Family Medicine 01/13/24 documented as of this encounter
--- OUTSIDE RECORDS SUMMARY | 2024-09-10 03:25 | External Medical Summary | Summary of Care ---
Author Name Unknown Organization [facility] Address [address] [place] [facility] [place] [address] Phone [phone] Care Team Providers Care Boatswains Mate Name Role Phone Garett Bernal MD Primary Care Provide r Encounter Details Date Type Department Care Team (Latest Contact Info) Description 06/23/2024 1:00 PM EST Office Visit Orthopaedics [address] [phone] Johny Scanlon MD [address] [place] [address] Primary osteoarthritis of both knees*; Knee effusion, [...] before bedtime. Active Blood Glucose Monitoring Suppl ([employer] ULTRA 2) w/Device KITIndications:T ype 2 diabetes mellitus with hemoglobin A1c goal of less than 7.0% ([facility]) Test blood sugar daily DxE11.9 1 Kit 0 Active OneTouch Delica Plus [id number] ions:Type 2 diabetes mellitus with hemoglobin A1c goal of less than 7.0% ([facility]) use to test blood sugar up to [...] hemoglobin A1c goal of less than 7.0% ([facility]) take 1 tablet in the morning and [...] hemoglobin A1c goal of less than 7.0% ([facility]) test blood sugar twice daily 200 Strip 3 4 Active Ozempic (0.25 or 0.5 MG/DOSE) 2 MG/3ML Solution Pen-injector (Semaglutide(0.2 5 or 0.5MG/DOS))Indic ations:Type 2 diabetes mellitus with hemoglobin A1c goal of less than 7.0% ([facility]),Body mass index (BMI) of 45.0 to 49.9 in adult ([facility]) Inject 0.5 mg under the skin once [...] Tablet before bedtime. 14 Tablet 4 Active [place]-3 Fish Oil 1000 MG Oral Capsule ([place]-3) Take 2 Capsules by mouth in the [...] - 06/23/2024 1:00 PM EST Vero Watson [id number] PROCEDURE NOTE: KNEE ASPIRATION/INJECTION Laterality: Bilateral Time [...] Scanlon MD Sports Medicine Primary Care Orthopaedics [address] [phone] documented in this encounter Plan of Treatment Upcoming Encounters Date Type Department Care Team (Late st Contact Info) Description 06/30/2024 1:00 PM EST Office Visit Orthopaedics [address] [phone] Johny Scanlon MD [address] [place] [address] 07/07/2024 1:00 PM EST Office Visit Orthopaedics [address] [phone] Johny Scanlon MD [address] [place] [address] 08/25/2024 12:30 PM EST Imaging Radiology [address] [place] [address] 09/20/2024 10:00 AM EDT Office Visit Family Medicine [address] [phone] Abbey Calero PA-C [address] [place] [address] [place] [address] 03/24/2025 10:00 AM EDT Office Visit Allergy/Immunology State Lexie Aaron [address] [place] [address] Haydee Parrish PA-C 200 [facility] [place] [address] 04/28/2025 10:40 AM EST Office Visit Family Medicine [address] [place] [phone] Garett Bernal MD [address] [place] [address] [place] [address] Scheduled Orders Name Type Priority Associated Diagnoses [...] joint documented in this encounter Care Teams Boatswains Mate Relationship Specialty Start Date End Date Garett Bernal MD [address] [place] [address] [place] [address] PCP - General Family Medicine 01/13/24 documented as of this encounter
--- OUTSIDE RECORDS SUMMARY | 2024-09-10 03:25 | External Medical Summary ---
Author Name Unknown Address Unknown Organization K01:LABORATORY [facility] - [facility] [address] [facility] [id number] Laboratory Report Ordering Provider Test Date Status THERESA RANDOLPH 06/23/2024 14:00:24 Final Reference ranges are for gianni nts without prior surgery. Some reference ranges and other method performance specifications have not been established for this fluid. The test results must be integrated into the clinical context for interpretation.
null Observation Date Value Abnormality Reference (Units ) Status Color of Body fluid 06/23/2024 14:00:24 Yellow Straw, Yellow, Colorless Final Clarity of Body fluid 06/23/2024 14:00:24 Cloudy Abnormal Clear Final Leukocytes [#/volume] in Synovial fluid 06/23/2024 14:00:24 [id number] Above high normal 0-180 (cells/uL) Final Erythrocytes [#/volume] in Synovial fluid 06/23/2024 14:00:24 [id number] Above high normal <2000 (cells/uL) Final Performing Location LABORATORY [facility] - [address] [facility] [address]
--- OUTSIDE RECORDS SUMMARY | 2024-09-10 03:25 | External Medical Summary ---
Author Name Unknown Address Unknown Organization K01:LABORATORY [facility] [place] - [address] [place] [address] Laboratory Report Ordering Provider Test Date Status AGUSTÍNTHERESA 06/23/2024 14:02:48 Final Observation Date Value Abnormality Reference (Units ) Status Color of Body fluid 06/23/2024 14:02:48 Yellow Straw, Yellow, Colorless Final Clarity of Body fluid 06/23/2024 14:02:48 Cloudy Abnormal Clear Final Crystals, Synovial Fluid 06/23/2024 14:02:48 No Crystals Present No Crystals Present Final Crystals, Synovial Fluid 06/23/2024 14:02:48 No Crystals Present No Crystals Present Final Performing Location LABORATORY [facility] - [address] [place] [address]
--- OUTSIDE RECORDS SUMMARY | 2024-09-10 03:25 | External Medical Summary | Summary of Care ---
Author Name Unknown Organization [facility] Address [address] [place] [address] Phone [phone] Care Team Providers Care Associate Name Role Phone Garett Bernal MD Primary Care Provide r Reason for Visit * Reason Onset Date Comments Medication Problem 04/22/2024 Encounter Details Date Type Department Care Team (Late st Contact Info) Description 04/22/2024 Telephone Allergy/Immunology Joao Maurer [place] [address] [place] [address] Gordo Lozada [facility] [address] [facility] [address] Medication Problem Allergies No known active allergiesdocumented as of this encounter (statuses as of 04/22/2024) Medications Medication Sig Dispensed Refills Start Date End Date Status Probiotic Product (DIGESTIVE ADVANTAGE) CAPS One daily 11/11/2016 Active Acetaminophen ER 650 MG Oral Tablet Extended Release Take 1 Tablet by mouth every 8 hours as needed for Fever. Active Biotin 1000 MCG Tablet Take 1 Tablet by mouth in the morning and 1 Tablet before bedtime. Active Blood Glucose Monitoring Suppl ([employer] ULTRA 2) w/Device KITIndications:Type 2 diabetes mellitus with hemoglobin A1c goal of less than 7.0% ([facility]) Test blood sugar daily DxE11.9 1 Kit 01/11/2020 Active OneTouch Delica Plus [id number] :Type 2 diabetes mellitus with hemoglobin A1c [...] of 45.0 to 49.9 in adult ([facility]) Inject 0.5 mg under the skin once [...] Tablet before bedtime. 14 Tablet 03/23/2024 Active Kimberly-3 Fish Oil 1000 MG Oral Capsule (Kimberly-3) Take 2 Capsules by mouth in the morning and 2 Capsules before bedtime. 03/23/2024 Active Sertraline HCl 100 MG Oral Tablet (Zoloft)Indications: Panic disorder TAKE ONE TABLET BY MOUTH IN THE MORNING 90 Tablet 1 03/31/2024 Active Cetirizine HCl 10 MG Oral Tablet (ZyrTEC) TAKE ONE TABLET BY MOUTH IN THE MORNING 90 Tablet 04/20/2024 Active documented as of this encounter (statuses as of 04/22/2024) Active Problems Problem Noted Date Diagnosed Date [...] as of this encounter (statuses as of 04/22/2024) Resolved Problems Problem Noted Date Diagnosed Date [...] as of this encounter (statuses as of 04/22/2024) Immunizations Name Administration Dates Next Due COVID-19 [...] encounter Miscellaneous Notes * Telephone Encounter - Sarah Salomon LPN - 04/22/2024 9:28 AM EDT My chart message sent advising of such. * Telephone Encounter - Gordo Lozada MD - 04/22/2024 9:25 AM EDT We recommend that patient purchase OTC since cetirizine is not covered by her insurance. Gordo Lozada MD * Telephone Encounter - Sarah Salomon LPN - 04/22/2024 9:20 AM EDT Fax from pharmacy cetirizine requires a prior auth. Do you want to attempt for PA or have them purchase OTC documented in this encounter Plan of Treatment Upcoming Encounters Date Type Department Care Team (Late st Contact Info) Description 06/23/2024 1:00 PM EST Office Visit Orthopaedic[address] [phone] Johny Scanlon MD [address] [place] [address] 06/30/2024 1:00 PM EST Office Visit Orthopaedics [address] [phone] Johny Scanlon MD [address] [address] 07/07/2024 1:00 PM EST Office Visit Orthopaedics [address] [place] [address] Johny Scanlon MD [address] [place] [address] 08/25/2024 12:30 PM EST Imaging Radiology [address] [place] [address] 09/20/2024 10:00 AM EDT Office Visit Family [address] [phone] Abbey Calero PA-C [address] [place] [address] [place] [address] 03/24/2025 10:00 AM EDT Office Visit Allergy/Immunology [facility] [place] [address] [place] [address] Haydee Parrish PA-C [address] [place] [address] 04/28/2025 10:40 AM EST Office Visit [address] [phone] Garett Bernal MD [address] [place] [address] [place] [address] Scheduled Procedures Name Priority Associated Diagnoses Date/Ti [...] filedocumented as of this encounter Care Teams Associate Relationship Specialty Start Date End Date Garett Bernla MD [address] [place] [address] [place] [phone] PCP - General Family Medicine 01/13/24 documented as of this encounter
--- OUTSIDE RECORDS SUMMARY | 2024-09-10 03:25 | External Medical Summary | Summary of Care ---
Author Name Unknown Organization [facility] Address [address] [place] [facility] [place] [address] Phone [phone] Care Team Providers Care Entry Level Marketing Representative Name Role Phone Garett Bernal MD Primary Care Provide r Encounter Details Date Type Department Care Team (Latest Contact Info) Description 06/23/2024 1:00 PM EST Office Visit Orthopaedics [address] [phone] Johny Scanlon MD [address] [place] [address] Primary osteoarthritis of both knees*; Knee effusion, [...] before bedtime. Active Blood Glucose Monitoring Suppl ([employer] ULTRA 2) w/Device KITIndications:T ype 2 diabetes mellitus with hemoglobin A1c goal of less than 7.0% ([facility]) Test blood sugar daily DxE11.9 1 Kit 0 Active OneTouch Delica Plus [id number] ions:Type 2 diabetes mellitus with hemoglobin A1c [...] of less than 7.0% ([facility]),Body mass index (BMI) of 45.0 to 49.9 in adult ([facility]) Inject 0.5 mg under the skin [...] Tablet before bedtime. 14 Tablet 4 Active [place]-3 Fish Oil 1000 MG Oral Capsule ([place]-3) Take 2 Capsules by mouth in the [...] both knees 20 mg IX ONCE 06/23/2024 06/23/2024 Ended Sodium Hyaluronate (Viscosup) (Euflexxa/Hyalgan) 20 MG/2ML inj 20 mgIndications:Primary osteoarthritis of both knees 20 mg IX ONCE 06/23/2024 06/23/2024 Ended documented as of this encounter (statuses [...] - 06/23/2024 1:00 PM EST Vero Watson [id number] PROCEDURE NOTE: KNEE ASPIRATION/INJECTION Laterality: Bilateral Time [...] Scanlon MD Sports Medicine Primary Care Orthopaedics [address] [phone] documented in this encounter Plan of Treatment Upcoming Encounters Date Type Department Care Team (Late st Contact Info) Description 06/30/2024 1:00 PM EST Office Visit Orthopaedics [address] [phone] Johny Scanlon MD [address] [place] [address] 07/07/2024 1:00 PM EST Office Visit Orthopaedics [address] [phone] Johny Scanlon MD [address] [place] [address] 08/25/2024 12:30 PM EST Imaging Radiology [address] [place] [address] 09/20/2024 10:00 AM EDT Office Visit Family Medicine [address] [phone] Abbey Calero PA-C [address] [place] [address] [place] [address] 03/24/2025 10:00 AM EDT Office Visit Allergy/Immunology State Lexie Aaron [address] [place] [address] Haydee Parirsh PA-C 200 [facility] [place] [address] 04/28/2025 10:40 AM EST Office Visit Family Medicine [address] [place] [phone] Garett Bernal MD [address] [place] [address] [place] [address] Pending Results Name Type Priority Associated Diagnoses [...] lower leg joint documented in this encounter Administered Medications Inactive Administered Medications - up to 3 most recent administrations Medication Order MAR Action Action Date Dose Rate Site Sodium Hyaluronate (Viscosup) (Euflexxa/Hyalgan) 20 MG/2ML inj 20 mg 20 mg, Intra-Articular, ONCE, On Dorinda 06/23/24 at 1430, For 1 doseIndications:Primary osteoarthritis of both knees Given 06/23/2024 3:19 PM EST 20 mg Knee Right Sodium Hyaluronate (Viscosup) (Euflexxa/Hyalgan) 20 MG/2ML inj 20 mg 20 mg, Intra-Articular, ONCE, On Dorinda 06/23/24 at 1430, For 1 doseIndications:Primary osteoarthritis of both knees Given 06/23/2024 3:19 PM EST 20 mg Knee Left documented in this encounter Care Teams Entry Level Marketing Representative Relationship Specialty Start Date End Date Garett Bernal MD [address] [place] [address] [place] [phone] PCP - General Family Medicine 01/13/24 documented as of this encounter
--- OUTSIDE RECORDS SUMMARY | 2024-09-10 03:25 | External Medical Summary | Summary of Care ---
Author Name Unknown Organization [facility] Address [address] [place] [facility] [place] [address] Phone [phone] Care Team Providers Care Bladder Changer Name Role Phone Garett Bernal MD Primary Care Provide r Encounter Details Date Type Department Care Team (Latest Contact Info) Description 06/23/2024 1:00 PM EST Office Visit Orthopaedics [address] [phone] Johny Scanlon MD [address] [place] [address] Primary osteoarthritis of both knees*; Knee effusion, [...] before bedtime. Active Blood Glucose Monitoring Suppl ([employer] ULTRA 2) w/Device KITIndications:T ype 2 diabetes mellitus with hemoglobin A1c goal of less than 7.0% ([facility]) Test blood sugar daily DxE11.9 1 Kit 0 Active OneTouch Delica Plus [id number] ions:Type 2 diabetes mellitus with hemoglobin A1c [...] Tablet before bedtime. 14 Tablet 4 Active [place]-3 Fish Oil 1000 MG Oral Capsule (Medora-3) Take 2 Capsules by mouth in the [...] - 06/23/2024 1:00 PM EST Vero Watson [id number] PROCEDURE NOTE: KNEE ASPIRATION/INJECTION Laterality: Bilateral Time [...] Scanlon MD Sports Medicine Primary Care Orthopaedics [address] [phone] documented in this encounter Plan of Treatment Upcoming Encounters Date Type Department Care Team (Late st Contact Info) Description 06/30/2024 1:00 PM EST Office Visit Orthopaedics [address] [phone] Johny Scanlon MD [address] [place] [address] 07/07/2024 1:00 PM EST Office Visit Orthopaedics [address] [phone] Johny Scanlon MD [address] [place] [address] 08/25/2024 12:30 PM EST Imaging Radiology [address] [place] [address] 09/20/2024 10:00 AM EDT Office Visit Family Medicine [address] [phone] Abbey Calero PA-C [address] [place] [address] [place] [address] 03/24/2025 10:00 AM EDT Office Visit Allergy/Immunology State Lexie Aaron [address] [place] [address] Haydee Parrish PA-C 200 [facility] [place] [address] 04/28/2025 10:40 AM EST Office Visit Family Medicine [address] [place] [phone] Garett Bernal MD [address] [place] [address] [place] [address] Pending Results Name Type Priority Associated Diagnoses [...] joint documented in this encounter Care Teams Bladder Changer Relationship Specialty Start Date End Date Garett Bernal MD [address] [place] [address] [place] [phone] PCP - General Family Medicine 01/13/24 documented as of this encounter
--- OUTSIDE RECORDS SUMMARY | 2024-09-10 03:25 | External Medical Summary | Summary of Care ---
Author Name Unknown Organization [facility] Address [address] [place] [facility] [place] [place] [address] Phone [phone] Care Team Providers Care Drawer Maker Name Role Phone Garett Bernal MD Primary Care Provide r Encounter Details Date Type Department Care Team (Latest Contact Info) Description 06/23/2024 1:00 PM EST Office Visit Orthopaedics [address] [phone] Johny Scanlon MD [address] [place] [address] Primary osteoarthritis of both knees*; Knee effusion, [...] before bedtime. Active Blood Glucose Monitoring Suppl (Nuxeo ULTRA 2) w/Device KITIndications:T ype 2 diabetes mellitus with hemoglobin A1c goal of less than 7.0% ([facility]) Test blood sugar daily DxE11.9 1 Kit 0 Active OneTouch Delica Plus [id number] ions:Type 2 diabetes mellitus with hemoglobin A1c goal of less than 7.0% ([facility]) use to test blood sugar [...] hemoglobin A1c goal of less than 7.0% ([facility]) take 1 tablet in the [...] hemoglobin A1c goal of less than 7.0% ([facility]) test blood sugar twice daily 200 Strip 3 4 Active Ozempic (0.25 or 0.5 MG/DOSE) 2 MG/3ML Solution Pen-injector (Semaglutide(0.2 5 or 0.5MG/DOS))Indic ations:Type 2 diabetes mellitus with hemoglobin A1c goal of less than 7.0% ([facility]),Body mass index (BMI) of 45.0 to 49.9 in adult ([facility]) Inject 0.5 mg under the [...] Tablet before bedtime. 14 Tablet 4 Active [place]-3 Fish Oil 1000 MG Oral Capsule ([place]-3) Take 2 Capsules by mouth in the [...] - 06/23/2024 1:00 PM EST Vero Watson [id number] PROCEDURE NOTE: KNEE ASPIRATION/INJECTION Laterality: Bilateral Time [...] Scanlon MD Sports Medicine Primary Care Orthopaedics [address] [phone] documented in this encounter Plan of Treatment Upcoming Encounters Date Type Department Care Team (Late st Contact Info) Description 06/30/2024 1:00 PM EST Office Visit Orthopaedics [address] [phone] Johny Scanlon MD [address] [place] [address] 07/07/2024 1:00 PM EST Office Visit Orthopaedics [address] [phone] Johny Scanlon MD [address] [place] [address] 08/25/2024 12:30 PM EST Imaging Radiology [address] [place] [address] 09/20/2024 10:00 AM EDT Office Visit Family Medicine [address] [phone] Abbey Calero PA-C [address] [place] [address] [place] [address] 03/24/2025 10:00 AM EDT Office Visit Allergy/Immunology State Lexie Aaron [address] [place] [address] Haydee Parrish PA-C [address] [facility] [place] [address] 04/28/2025 10:40 AM EST Office Visit Family Medicine [address] [place] [phone] Garett Bernal MD [address] [place] [address] [place] [id number] Pending Results Name Type Priority Associated Diagnoses [...] joint documented in this encounter Care Teams Drawer Maker Relationship Specialty Start Date End Date Garett Bernal MD [address] [place] [address] [place] [phone] PCP - General Family Medicine 01/13/24 documented as of this encounter
--- OUTSIDE RECORDS SUMMARY | 2024-09-10 03:25 | External Medical Summary | Summary of Care ---
Author Name Unknown Organization [facility] Address [address] [facility] [place] [address] Phone [phone] Care Team Providers Care Processor Helper Name Role Phone Garett Bernal MD Primary Care Provide r Encounter Details Date Type Department Care Team (Latest Contact Info) Description 06/23/2024 1:00 PM EST Office Visit Orthopaedics [address] [phone] Johny Scanlon MD [address] [place] [address] Primary osteoarthritis of both knees*; Knee effusion, [...] before bedtime. Active Blood Glucose Monitoring Suppl (Fanitics ULTRA 2) w/Device KITIndications:T ype 2 diabetes mellitus with hemoglobin A1c goal of less than 7.0% ([facility]) Test blood sugar daily DxE11.9 1 Kit 0 Active OneTouch Delica Plus [id number] ions:Type 2 diabetes mellitus with hemoglobin A1c [...] Tablet before bedtime. 14 Tablet 4 Active [place]-3 Fish Oil 1000 MG Oral Capsule ([place]-3) Take 2 Capsules by mouth in [...] - 06/23/2024 1:00 PM EST Vero Watson [id number] PROCEDURE NOTE: KNEE ASPIRATION/INJECTION Laterality: Bilateral Time [...] Scanlon MD Sports Medicine Primary Care Orthopaedics [address] [phone] documented in this encounter Plan of Treatment Upcoming Encounters Date Type Department Care Team (Late st Contact Info) Description 06/30/2024 1:00 PM EST Office Visit Orthopaedics [address] [phone] Johny Scanlon MD [address] [place] [address] 07/07/2024 1:00 PM EST Office Visit Orthopaedics [address] [phone] Johny Scanlon MD [address] [place] [address] 08/25/2024 12:30 PM EST Imaging Radiology [address] [place] [address] 09/20/2024 10:00 AM EDT Office Visit Family Medicine [address] [phone] Abbey Calero PA-C [address] [place] [address] [place] [address] 03/24/2025 10:00 AM EDT Office Visit Allergy/Immunology State Lexie Aaron [address] [place] [address] Haydee Parrish PA-C [address] [facility] [place] [address] 04/28/2025 10:40 AM EST Office Visit Family Medicine [address] [place] [phone] Garett Bernal MD [address] [place] [address] [place] [address] Pending Results Name Type Priority Associated Diagnoses [...] joint documented in this encounter Care Teams Processor Helper Relationship Specialty Start Date End Date Garett Bernal MD [address] [place] [address] [place] [phone] PCP - General Family Medicine 01/13/24 documented as of this encounter
--- OUTSIDE RECORDS SUMMARY | 2024-09-10 03:25 | External Medical Summary | Summary of Care ---
Author Name Unknown Organization [facility] Address [address] [place] [address] Phone [phone] Care Team Providers Care Application Processor Name Role Phone Garett Bernal MD Primary Care Provide r Reason for Visit * Reason Comments eRx-Medication Refill Encounter Details Date Type Department Care Team (Late st Contact Info) Description 05/22/2024 Refill [facility] [address] [place] [address] Regina Kemp MD [address] [place] [address] Allergies No known active allergiesdocumented as of this encounter (statuses as of 05/23/2024) Medications Probiotic Product (DIGESTIVE ADVANTAGE) CAPS One daily 11/12/19 17 Active Acetaminophen ER 650 MG Oral Tablet Extended Release Take 1 Tablet by mouth every 8 hours as needed for Fever. Active Biotin 1000 MCG Tablet Take 1 Tablet by mouth in the morning and 1 Tablet before bedtime. Active Blood Glucose Monitoring Suppl (HackMyPicTOUCH ULTRA 2) w/Device KITIndications: Type 2 diabetes mellitus with hemoglobin A1c goal of less than 7.0% ([facility]) Test blood sugar daily DxE11.9 1 Kit 01/11/20 20 Active OneTouch Delica Plus [id number] tions:Type 2 diabetes mellitus with hemoglobin A1c goal of less than 7.0% ([facility]) use to test blood sugar up [...] A1c goal of less than 7.0% ([facility]) test blood sugar twice daily 200 Strip 3 11/27/19 24 Active Ozempic (0.25 or 0.5 MG/DOSE) 2 MG/3ML Solution Pen-injector (Semaglutide(0. 25 or 0.5MG/DOS))Lilibeth cations:Type 2 diabetes mellitus with hemoglobin A1c goal of less than 7.0% ([facility]),Body mass index (BMI) of 45.0 to 49.9 in adult ([facility]) Inject 0.5 mg under the skin once a week. 3 mL 11/30/19 24 Active Sulindac 200 MG Oral TabletIndicatio ns:Arthralgia of both hands,Pain in both feet TAKE ONE TABLET BY MOUTH IN THE MORNING AND ONE BEFORE BEDTIME 60 Tablet 5 01/04/20 24 Active Lisinopril 2.5 MG Oral Tablet (Prinivil) TAKE ONE TABLET BY MOUTH EVERY DAY 90 Tablet 1 01/08/20 24 Active Montelukast Sodium 10 MG Oral Tablet (Singulair) take one tablet by mouth once daily in the evening 90 Tablet 3 01/13/20 24 Active Metoprolol Tartrate 50 MG Oral Tablet (Lopressor)Lilibeth cations:Paroxys mal ventricular tachycardia (HCC) TAKE ONE TABLET BY MOUTH TWICE DAILY 180 Tablet 3 02/27/20 24 Active Amoxicillin-Pot Clavulanate 875-125 MG Oral Tablet (Augmentin) Take 1 Tablet by mouth in the morning and 1 Tablet before bedtime. 14 Tablet 03/23/20 24 Active [place]-3 Fish Oil 1000 MG Oral Capsule ([place]-3) Take 2 Capsules by mouth in the [...] or wheezing 18 g 05/23/20 24 Active Ventolin HFA 108 (90 Base) MCG/ACT Inhalation Aerosol Solution INHALE TWO PUFFS BY MOUTH EVERY FOUR HOURS NEEDED for cough, shortness of breath or wheezing 18 g 02/11/20 24 024 Discontinued documented as of this encounter (statuses as of 05/23/2024) Active Problems Problem Noted Date Diagnosed Date [...] as of this encounter (statuses as of 05/23/2024) Resolved Problems Problem Noted Date Diagnosed Date [...] as of this encounter (statuses as of 05/23/2024) Immunizations Name Administration Dates Next Due COVID-19 [...] encounter Miscellaneous Notes * Telephone Encounter - Regina Kemp MD - 05/23/2024 7:45 AM ESTSigned Prescriptions: Disp Refills Ventolin HFA 108 (90 Base) MCG/ACT Inhalat*18 g 0 Sig: INHALE TWO PUFFS BY MOUTH EVERY FOUR HOURS NEEDED for cough, shortness of breath or wheezing Authorizing Provider: REGINA KEMP * Telephone Encounter - Sarah Salomon LPN - 05/23/2024 7:20 AM EST Pending Prescriptions: Disp Refills Ventolin HFA 108 (90 Base) MCG/ACT Inhalat*18 g 0 Sig: INHALE TWO PUFFS BY MOUTH EVERY FOUR HOURS NEEDED for cough, shortness of breath or wheezing * Telephone Encounter - Sarah Salomon LPN - 05/23/2024 7:20 AM EST Pending Prescriptions: Disp Refills Ventolin HFA 108 (90 Base) MCG/ACT Inhala*18 g 0 Sig: INHALE TWO PUFFS BY MOUTH EVERY FOUR HOURS NEEDED for cough, shortness of breath or wheezing Last Visit: 03/23/2024 (in office), Visit date not found (telemedicine) Next Visit: 03/24/2025 Last date the medication was ordered: 02/11/24 Health Maintenance Topic Date Due HIV Screening [...] Vaccine (FLU shot) (1) 02/21/2024 COVID-19 Vaccine ( - 2023- season) 2024 Albumin/Creatinine Ratio 07/16/2024 [...] 1:00 PM EST Office Visit Orthopaedics [address] [phone] Johny Scanlon MD [address] [place] [address] 06/30/2024 1:00 PM EST Office Visit Orthopaedics [address] [phone] Johny Scanlon MD [address] [place] [address] 07/07/2024 1:00 PM EST Office Visit Orthopaedics [address] [phone] Johny Scanlon MD [address] [place] [address] 08/25/2024 12:30 PM EST Imaging Radiology [address] [place] [address] 09/20/2024 10:00 AM EDT Office Visit Family Medicine [address] [place] [phone] Abbey Calero PA-C [address] [place] [address] [place] [address] 03/24/2025 10:00 AM EDT Office Visit Allergy/Immunology [facility] [address] [place] [address] Haydee Parrish PA-C [address] [place] [address] 04/28/2025 10:40 AM EST Office Visit Family Medicine [address] [phone] Garett Bernal MD [address] [place] [address] [place] [address] Scheduled Procedures Name Priority Associated Diagnoses Date/Ti [...] filedocumented as of this encounter Care Teams Application Processor Relationship Specialty Start Date End Date Garett Bernal MD [address] [place] [address] [place] [phone] PCP - General Family Medicine 01/13/24 documented as of this encounter
--- OUTSIDE RECORDS SUMMARY | 2024-09-10 03:25 | External Medical Summary ---
Author Name Unknown Address Unknown Organization K01:[facility] [address] [facility] [address] Laboratory Report Ordering Provider Test Date Status AGUSTÍNTHERESA 06/23/2024 14:00:24 Final Reference ranges are for gianni nts without prior surgery. Some reference ranges and other method performance specifications have not been established for this fluid. The test results must be integrated into the clinical context for interpretation. Observation Date Value Abnormality Reference (Units ) Status SYNC TOTAL NUCLEATED CELLS, SYNOVIAL 06/23/2024 14:00:24 [id number] (cells/uL) Final Segmented neutrophils/100 leukocytes in Synovial fluid 06/23/2024 14:00:24 2 0-25 (%) Final Lymphocytes/100 leukocytes in Synovial fluid 06/23/2024 14:00:24 51 0-78 (%) Final Monocytes/100 leukocytes in Synovial fluid 06/23/2024 14:00:24 47 0-71 (%) Final SEGMENTED NEUTROPHILS (1000/UG) IN SYNOVIAL FLUID ABS 06/23/2024 14:00:24 3120.00 (cells/uL) Final LYMPHOCYTES (1000/UG) IN SYNOVIAL FLUID ABS 06/23/2024 14:00:24 21168.00 (cells/uL) Final MONOCYTES(1000/UG) IN SYNOVIAL FLUID ABS 06/23/2024 14:00:24 [address].00 (cells/uL) Final Performing Location [facility] - [address] [facility] [address]
--- OUTSIDE RECORDS SUMMARY | 2024-09-10 03:25 | External Medical Summary | Summary of Care ---
Author Name Unknown Organization [facility] Address [address] [facility] [place] [address] Phone [phone] Care Team Providers Care Resident Care Associate Name Role Phone Garett Bernal MD Primary Care Provide r Encounter Details Date Type Department Care Team (Latest Contact Info) Description 06/23/2024 1:00 PM EST Office Visit Orthopaedics [address] [phone] Johny Scanlon MD [address] [place] [address] Primary osteoarthritis of both knees*; Knee effusion, left; Knee effusion, right Allergies No known active allergiesdocumented as of this encounter (statuses as of 06/24/2024) Medications Probiotic Product (DIGESTIVE ADVANTAGE) CAPS One daily 7 Active Acetaminophen ER 650 MG Oral Tablet Extended Release Take 1 Tablet by mouth every 8 hours as needed for Fever. Active Biotin 1000 MCG Tablet Take 1 Tablet by mouth in the morning and 1 Tablet before bedtime. Active Blood Glucose Monitoring Suppl (Sensika [employer] ULTRA 2) w/Device KITIndications:T ype 2 diabetes mellitus with hemoglobin A1c goal of less than 7.0% ([facility]) Test blood sugar daily DxE11.9 1 Kit 0 Active OneTouch Delica Plus [id number] ions:Type 2 diabetes mellitus with hemoglobin A1c goal of less than 7.0% ([facility]) use to test blood sugar up to [...] goal of less than 7.0% ([facility]) take 1 tablet in the morning and [...] goal of less than 7.0% ([facility]) test blood sugar twice daily 200 Strip 3 4 Active Ozempic (0.25 or 0.5 MG/DOSE) 2 MG/3ML Solution Pen-injector (Semaglutide(0.2 5 or 0.5MG/DOS))Indic ations:Type 2 diabetes mellitus with hemoglobin A1c goal of less than 7.0% ([facility]),Body mass index (BMI) of 45.0 to 49.9 in adult ([facility]) Inject 0.5 mg under the skin once [...] Tablet before bedtime. 14 Tablet 4 Active [place]-3 Fish Oil 1000 MG Oral Capsule ([place]-3) Take 2 Capsules by mouth in the [...] as of this encounter (statuses as of 06/24/2024) Active Problems Problem Noted Date Diagnosed Date [...] as of this encounter (statuses as of 06/24/2024) Resolved Problems Problem Noted Date Diagnosed Date [...] as of this encounter (statuses as of 06/24/2024) Immunizations Name Administration Dates Next Due COVID-19 [...] Scanlon MD - 06/23/2024 1:00 PM EST Bandar Montes [id number] PROCEDURE NOTE: KNEE ASPIRATION/INJECTION Laterality: Bilateral Time [...] Scanlon MD Sports Medicine Primary Care Orthopaedics [address] [phone] documented in this encounter Plan of Treatment Upcoming Encounters Date Type Department Care Team (Late st Contact Info) Description 06/30/2024 1:00 PM EST Office Visit Orthopaedics [address] [phone] Johny Scanlon MD [address] [place] [address] 07/07/2024 1:00 PM EST Office Visit Orthopaedics [address] [phone] Johny Scanlon MD [address] [place] [address] 08/25/2024 12:30 PM EST Imaging Radiology [address] [place] [address] 09/20/2024 10:00 AM EDT Office Visit Family Medicine [address] [phone] Abbey Calero PA-C [address] [place] [address] [place] [address] 03/24/2025 10:00 AM EDT Office Visit Allergy/Immunology State Lexie Aaron [address] [place] [address] Haydee Parrish PA-C [address] [facility] [place] [address] 04/28/2025 10:40 AM EST Office Visit Family Medicine [address] [place] [phone] Garett Bernal MD [address] [place] [address] [place] [phone] Scheduled Procedures Name Priority Associated Diagnoses Date/Ti [...] CARE US MAJOR JOINT INJECTION, ORTHO Routine 06/23/2024 10:40 PM EST Primary osteoarthritis of both knees Knee effusion, left Knee effusion, right CRYSTAL ANALYSIS, BODY FLUID Routine 06/23/2024 2:02 PM EST Knee effusion, right MANUAL DIFFERENTIAL, SYNOVIAL FLUID Routine 06/23/2024 2:00 PM EST Knee effusion, right CELL COUNT WITH DIFFERENTIAL, SYNOVIAL FLUID Routine 06/23/2024 2:00 PM EST Knee effusion, right CELL COUNT, SYNOVIAL FLUID Routine 06/23/2024 2:00 PM EST Knee effusion, right documented in this encounter Results * POINT OF CARE US MAJOR JOINT INJECTION, ORTHO (06/23/2024 10:40 PM EST) Anatomical Region Laterality Modality Musculoskeletal Radiographic July ging 06/23/2024 10:4 0 PM EST Narrative 06/24/2024 8:46 AM EST Patient Name: BANDAR MONTES : 1965 (58y) Female Performing Provider: Johny Scanlon (digitally signed Jun 24, 2024 08:46 EST) Attending: Johny Scanlon (digitally signed Jun 24, 2024 08:46 EST) [Impression] : PROCEDURE NOTE: KNEE ASPIRATION/INJECTION Laterality: Bilateral Time [...] reaction. Procedure Note Johny Scanlon MD - 06/24/2024 Patient Name: BANDAR MONTES : 1965 (58y) Female Performing Provider: Johny Scanlon (digitally signed Jun 24, 2024 08:46EST) Attending: Johny Scanlon (digitally signed Jun 24, 2024 08:46 EST) [Impression] : PROCEDURE NOTE: KNEE ASPIRATION/INJECTION Laterality: Bilateral Time out: Prior to aspiration and injection, a time out was called to confirm theadministration of appropriate medicine, patient name, procedure andconfirm to the best of our ability and knowledge the presence of anynecessary risks and benefits. Patient verbalized understanding. Ultrasound utilized to guide injection. During the procedure, the needle was visualized in plane and was advancedwith continuous ultrasound guidance to the appropriate anatomical landmarkas described in the procedure. Ultrasound required due to need to visualize specific joint recess andaspirate/inject at this site. Sterile technique applied using gloves, chlorhexadine, and alcoholswabs. Ethyl chloride spray for local anesthetic. Knee aspirated at superior-lateral recess using 1.5 inch, 18 gauge needle.22 mL of straw-colored fluid aspirated on L and 35 mL of straw-coloredfluid aspirated on R. Knee then injected with Euflexxa. Patient tolerated procedure with no significant bleeding or adversereaction. us Johny Scanlon MD RAD ULTRASOUND Fin al Result * (ABNORMAL) CRYSTAL ANALYSIS, BODY FLUID (06/23/2024 2:02 PM EST) Color, Fluid Yellow Straw, Yellow, Colorless 06/24/2024 2:35 AM EST [facility] Clarity, Fluid Cloudy(A) Clear 06/24/2024 2:35 AM EST [facility] Crystals, Stained Preparation No Crystals Present No Crystals Present 06/24/2024 2:35 AM EST [facility] Crystals, Wet Preparation No Crystals Present No Crystals Present 06/24/2024 2:35 AM EST [facility] Synovial Fluid Structure of right knee region / Unknown Non-blood Collection / Unknown 06/23/2024 2:02 PM EST 06/23/2024 2:02 PM EST Johny Scanlon MD LAB FLUID AND STOOL ORDERABLES Final Result [facility] [address] [place] [address] * MANUAL DIFFERENTIAL, SYNOVIAL FLUID (06/23/2024 2:00 PM EST) Total Nucleated Cell Count, Fluid 156,000 cells/uL 06/24/2024 2:35 AM EST [facility] Neutrophils % 2 0 - 25 % 06/24/2024 2:35 AM EST [facility] Lymphocytes % 51 0 - 78 % 06/24/2024 2:35 AM EST [facility] Monocytes % 47 0 - 71 % 06/24/2024 2:35 AM EST [facility] Absolute Neutrophils 3,120.00 cells/uL 06/24/2024 2:35 AM EST [facility] Absolute Lymphocytes 79,560.00 cells/uL 06/24/2024 2:35 AM EST [facility] Absolute Monocytes 73,320.00 cells/uL 06/24/2024 2:35 AM EST [facility] Synovial Fluid Structure of right knee region / Unknown Non-blood Collection / Unknown 06/23/2024 2:00 PM EST 06/23/2024 2:00 PM EST Narrative [facility] - 06/24/2024 2:35 AM EST Reference ranges are for joints without prior surgery. Some reference ranges and other method performance specifications have not been established for this fluid. The test results must be integrated into the clinical context for interpretation. Johny Scanlon MD LAB FLUID AND STOOL ORDERABLES Final Result Performing Organization Address [facility] de Phone Number [facility]ATORY [facility] [address] [place] [address] * (ABNORMAL) CELL COUNT, SYNOVIAL FLUID (06/23/2024 2:00 PM EST) Color, Fluid Yellow Straw, Yellow, Colorless 06/24/2024 2:35 AM EST [facility] Clarity, Fluid Cloudy(A) Clear 06/24/2024 2:35 AM EST [facility] Total Nucleated Cell Count, Fluid 156,000(H) 0 - 180 cells/uL 06/24/2024 2:35 AM EST [facility] RBC, Fluid 449,000,00 0(H) <2,000 cells/uL 06/24/2024 2:35 AM EST [facility] Synovial Fluid Structure of right knee region / Unknown Non-blood Collection / Unknown 06/23/2024 2:00 PM EST 06/23/2024 2:00 PM EST Narrative [facility] - 06/24/2024 2:35 AM EST Reference ranges are for joints without prior surgery. Some reference ranges and other method performance specifications have not been established for this fluid. The test results must be integrated into the clinical context for interpretation. Johny Scanlon MD LAB FLUID AND STOOL ORDERABLES Final Result Performing Organization Address [facility] de Phone Number LABORATORY [address] [address] documented in this encounter Visit Diagnoses Diagnosis [...] Left documented in this encounter Care Teams Resident Care Associate Relationship Specialty Start Date End Date Garett Bernal MD [address] [place] [address] [place] [address] PCP - General Family Medicine 01/13/24 documented as of this encounter
--- OUTSIDE RECORDS SUMMARY | 2024-09-10 03:26 | External Medical Summary | Summary of Care ---
Author Name Unknown Organization [facility] Address [address] [facility] [place] [address] Phone [phone] Care Team Providers Care Sail Maker Name Role Phone Garett Bernal MD Primary Care Provide r Reason for Visit * Reason Onset Date Comments Med Request 04/14/2024 Encounter Details Date Type Department Care Team (Late st Contact Info) Description 04/14/2024 Telephone Orthopaedics [facility] [address] [place] [address] Johny Rendon MD [address] [place] [address] Med Request Allergies No known active allergiesdocumented as of this encounter (statuses as of 04/14/2024) Medications Medication Sig Dispensed Refills Start Date End Date Status Probiotic Product (DIGESTIVE ADVANTAGE) CAPS One daily 11/11/2016 Active Acetaminophen ER 650 MG Oral Tablet Extended Release Take 1 Tablet by mouth every 8 hours as needed for Fever. Active Biotin 1000 MCG Tablet Take 1 Tablet by mouth in the morning and 1 Tablet before bedtime. Active Blood Glucose Monitoring Suppl (WeeblyTOUCH ULTRA 2) w/Device KITIndications:Type 2 diabetes mellitus with hemoglobin A1c goal of less than 7.0% ([facility]) Test blood sugar daily DxE11.9 1 Kit 01/11/2020 Active OneTouch Delica Plus [id number] :Type 2 diabetes mellitus with hemoglobin A1c goal of less than 7.0% ([facility]) use to test blood sugar up [...] goal of less than 7.0% ([facility]) test blood sugar twice daily 200 Strip 3 11/27/2023 Active Ozempic (0.25 or 0.5 MG/DOSE) 2 MG/3ML Solution Pen-injector (Semaglutide(0.25 or 0.5MG/DOS))Indicatio ns:Type 2 diabetes mellitus with hemoglobin A1c goal of less than 7.0% (HCC),Body mass index (BMI) of 45.0 to 49.9 in adult (HCC) Inject 0.5 mg under the skin once a week. 3 mL 5 11/30/2023 Active Sulindac 200 MG Oral TabletIndications:Ar [...] Tablet before bedtime. 14 Tablet 03/23/2024 Active [place]-3 Fish Oil 1000 MG Oral Capsule ([place]ford-3) Take 2 Capsules by mouth in the morning and 2 Capsules before bedtime. 03/23/2024 Active Sertraline HCl 100 MG Oral Tablet (Zoloft)Indications: Panic disorder TAKE ONE TABLET BY MOUTH IN THE MORNING 90 Tablet 1 03/31/2024 Active documented as of this encounter (statuses as of 04/14/2024) Active Problems Problem Noted Date Diagnosed Date [...] as of this encounter (statuses as of 04/14/2024) Resolved Problems Problem Noted Date Diagnosed Date [...] as of this encounter (statuses as of 04/14/2024) Immunizations Name Administration Dates Next Due COVID-19 [...] encounter Miscellaneous Notes * Telephone Encounter - Dian Sidhu OSA - 04/14/2024 11:58 AM EDT SEE REFERRAL MESSAGE * Telephone Encounter - Emy Logan MED ASSIST - 04/14/2024 11:36 AM EDT Orthopaedics Pre-Cert Request Medication/Disease State Information: Medication: Hyaluronate- Gelsyn-3 ([id number]): inject 16.8 mg (2 mL) once weekly for 3 weeks (total of 6 injections). Route to [id number] Is there radiological proof(x-ray, cat scan, mri of osteoarthritis? yesIf yes, date of scan: Has the patient tried physical therapy?yes Has the patient tried tylenol or NSAIDs?yes Has the patient failed corticosteroid injections of the knee?yes Has the patient tried weight loss?no Has the patient tried knee bracing?yes Has the patient tried a home exercise program?no Diagnosis (including ICD-10): Bilateral Osteoarthritis of Knee- M17.0 Medication(s) Tried/Failed/Contraindicated: Is this for continuation of therapy?(If yes, was there improvement?) See corresponding visit note(s) for additional supporting clinical information. Office Information: Prescriber: johny rendon * Telephone Encounter - Emy Logan MED ASSIST - 04/14/2024 11:36 AM EDT ----- Message from Johny Rendon MD sent at 04/14/2024 10:13 AM EDT ----- Regarding: DELGADO auth Please get authorization for Hyaluronic acid injection series (prefer Gelsyn) for BL knee. NOTE: she has had euflexxa in the past but we are trying a different brand to see if she gets longer relief This series was scheduled to start in 2 months. Will need canceled or rescheduled if authorization denied. documented in this encounter Plan of Treatment Upcoming Encounters Date Type Department Care Team (Late st Contact Info) Description 06/23/2024 1:00 PM EST Office Visit Orthopaedics [address] [phone] Johny Rendon MD [address] [place] [address] 06/30/2024 1:00 PM EST Office Visit Orthopaedics [address] [phone] Johny Rendon MD [address] [place] [address] 07/07/2024 1:00 PM EST Office Visit Orthopaedics [address] [phone] Johny Rendon MD [address] [place] [address] 08/25/2024 12:30 PM EST Imaging Radiology [address] [place] [address] 09/20/2024 10:00 AM EDT Office [address] [phone] Abbey Calero PA-C [address] [place] [address] [place] [address] 03/24/2025 10:00 AM EDT Office Visit Allergy/Immunology State Lexie Aaron [address] [facility] [place] [address] Haydee Parrish PA-C [address] [place] [address] 04/28/2025 10:40 AM EST Office Visit Family Medicine [address] [place] [phone] Garett Bernal MD [address] [place] [address] [place] [address] Scheduled Procedures Name Priority Associated Diagnoses Date/Ti [...] filedocumented as of this encounter Care Teams Sail Maker Relationship Specialty Start Date End Date Garett Bernal MD [address] [place] [address] [place] [address] PCP - General Family Medicine 01/13/24 documented as of this encounter
--- OUTSIDE RECORDS SUMMARY | 2024-09-10 03:26 | External Medical Summary ---
Author Name Unknown Address Unknown Organization K01:[facility] [place] [address] [place] [address] Laboratory Report Ordering Provider Test Date Status ALEXANDRE HERNANDEZ 03/29/2024 10:39:17 Final Observation Date Value Abnormality Reference (Units ) Status HbA1C 03/29/2024 10:39:17 6.8 Above high normal 4. 0-5.6 (%) Final The use of HbA1c to monitor glycemic status is based on normal hemoglobin and HbA composition. This test should not be used in patients with abnormal hemoglobin that affects the half life of the red blood cell or the in vivo glycation rates. Glucose, estimated average 03/29/2024 10:39:17 148 Above high normal <126 (mg/dL) Fin al Performing Location [facility] [place] [address] [facility] [address]
--- OUTSIDE RECORDS SUMMARY | 2024-09-10 03:26 | External Medical Summary | Summary of Care ---
Author Name Unknown Organization [facility] Address [address] [facility] [place] [place] [address] Phone [phone] Care Team Providers Care Grounds And Nursery Specialist Name Role Phone Garett Bernal MD Primary Care Provide r Reason for Visit * Reason Onset Date Comments Health Maintenance 03/28/2024 Encounter Details Date Type Department Care Team (Late st Contact Info) Description 03/28/2024 Telephone Family Medicine [address] [phone] Garett Bernal MD [address] [place] [address] [place] [address] Health Maintenance Allergies No known active allergiesdocumented as of this encounter (statuses as of 03/28/2024) Medications Medication Sig Dispensed Refills Start Date End Date Status Probiotic Product (DIGESTIVE ADVANTAGE) CAPS One daily 11/11/2016 Active Acetaminophen ER 650 MG Oral Tablet Extended Release Take 1 Tablet by mouth every 8 hours as needed for Fever. Active Biotin 1000 MCG Tablet Take 1 Tablet by mouth in the morning and 1 Tablet before bedtime. Active Blood Glucose Monitoring Suppl (Entia BiosciencesTOUCH ULTRA 2) w/Device KITIndications:Type 2 diabetes mellitus with hemoglobin A1c goal of less than 7.0% ([facility]) Test blood sugar daily DxE11.9 1 Kit 01/11/2020 Active OneTouch Delica Plus [id number] :Type 2 diabetes mellitus with hemoglobin A1c goal of less than 7.0% ([facility]) use to test blood sugar [...] Tablet by mouth in the morning. Active Sertraline HCl 100 MG Oral Tablet (Zoloft)Indications: Panic disorder TAKE ONE TABLET BY MOUTH EVERY DAY IN THE MORNING. 90 Tablet 3 06/06/2023 Active Vitamin C Oral Tablet Chewable Take 1 Tablet by mouth in the morning. Active Atorvastatin Calcium 20 MG Oral Tablet (Lipitor) TAKE ONE TABLET BY MOUTH AT BEDTIME 90 Tablet 3 08/26/2023 Active metFORMIN HCl 1000 MG Oral Tablet (Glucophage)Indicati ons:Type 2 diabetes mellitus with hemoglobin A1c goal of less than 7.0% ([facility]) take 1 tablet in the [...] hemoglobin A1c goal of less than 7.0% ([facility]) test blood sugar twice daily 200 Strip 3 11/27/2023 Active Ozempic (0.25 or 0.5 MG/DOSE) 2 MG/3ML Solution Pen-injector (Semaglutide(0.25 or 0.5MG/DOS))Indicatio ns:Type 2 diabetes mellitus with hemoglobin A1c goal of less than 7.0% ([facility]),Body mass index (BMI) of 45.0 [...] Tablet before bedtime. 14 Tablet 03/23/2024 Active [place]-3 Fish Oil 1000 MG Oral Capsule ([place]-3) Take 2 Capsules by mouth in the morning and 2 Capsules before bedtime. 03/23/2024 Active documented as of this encounter (statuses as of 03/28/2024) Active Problems Problem Noted Date Diagnosed Date [...] as of this encounter (statuses as of 03/28/2024) Resolved Problems Problem Noted Date Diagnosed Date [...] as of this encounter (statuses as of 03/28/2024) Immunizations Name Administration Dates Next Due COVID-19 [...] encounter Miscellaneous Notes * Telephone Encounter - Shelby Shepard LPN - 03/28/2024 10:35 AM EDT Care Gaps Comprehensive Care Outreach Last Office/Telemedicine Visit: 03/22/2024 (in office), Visit date not found (telemedicine) Next Office Visit: 09/20/2024 Hemoglobin AIC Results: Lab Results Component Value Date/Time HEMOGLOBIN A1C - [facility] 6.3 (H) 07/16/2023 09:34 AM HEMOGLOBIN A1C - [facility] 6.7 (H) 01/07/2023 10:22 AM HEMOGLOBIN A1C - [facility] 6.4 (H) 05/28/2022 08:26 AM HEMOGLOBIN A1C - [facility] 6.7 (H) 07/16/2020 07:34 AM HEMOGLOBIN A1C - [facility] 8.6 (H) 01/10/2020 10:45 AM BP Readings from Last 1 Encounters: 03/23/24 128/82 Reviewed Health Maintenance below: Health Maintenance Topic Date Due HIV Screening [...] Depression Screening 05/16/2020 Diabetic Foot Exam 01/08/2024 HbA1c 01/14/2024 Diabetic Eye Exam 02/05/2024 Cervical Cancer Screening 02/07/2024 Influenza Vaccine (FLU shot) (1) 02/21/2024 COVID-19 Vaccine (2023- season) 2024 Albumin/Creatinine Ratio 07/16/2024 GFR 07/16/2024 Mammogram 08/23/2024 Labs already ordered Eye zoe eye requested Pap my g Mamm already scheduled order placed Care Gap Outreach Action Taken: PeriphaGenhart message sent documented in this encounter Plan of Treatment Upcoming Encounters Date Type Department Care Team (Late st Contact Info) Description 08/25/2024 12:30 PM EST Imaging Radiology [address] [place] [address] 09/20/2024 10:00 AM EDT Office Visit Family Medicine [address] [phone] Abbey Calero PA-C [address] [place] [address] [place] [address] 03/24/2025 10:00 AM EDT Office Visit Allergy/Immunology [facility] [place] [address] [place] [address] Haydee Parrish PA-C [address] [place] [address] 04/28/2025 10:40 AM EST Office Visit Family Medicine [address] [place] [address] Garett Bernal MD [address] [place] [address] [place] [address] Scheduled Orders Name Type Priority Associated Diagnoses Orde r Schedule MAMMOGRAM SCREENING DONN BILATERAL Medical Imaging Routine Encounter for screening mammogram for malignant neoplasm of breast Expected: 03/28/2024, Expires: 04/28/2025 Scheduled Procedures Name Priority Associated Diagnoses Date/Ti [...] 05/16/2020 05/16/2019 Diabetic Foot Exam 01/08/2024 01/07/2023 HbA1c 01/14/2024 07/16/2023, 12/20, 05/28/2022, Additional history exists Diabetic Eye Exam 02/05/2024 02/04/2023, , 10/10/2013 Cervical Cancer Screening 02/07/2024 Pap Smear 02/07/2024 02/06/2021, 10/02/2017, 10/31/2013, Additional history exists COVID-19 Vaccine ( season) 2024 10/05/2020, 09/07/2020 Influenza Vaccine (FLU shot) (#1) 2024 03/23/2023, 04/03/2021, 03/28/2019, Additional history exists Albumin/Creatinine Ratio 07/16/2024 024, 05/28/2022, 07/24/2020 GFR 07/16/2024 07/16/2023, 12/20, 05/28/2022, Additional history exists Mammogram 08/23/2024 08/24/2023, 07/23, 2021, Additional history exists Colonoscopy 12/03/2025 12/03/2022, 08/30/2018 Colorectal Cancer Screening 12/03/2025 Lipid Panel 07/16/2028 07/16/2023, 12/20, 05/28/2022, Additional history exists HPV (Gardasil) Vaccine Aged Out No lo nger eligible based on patient's age to complete this topic MENINGOCOCCAL (MENACTRA/MENVEO) Aged Out No longer eligible based on patient's age to complete this topic documented as of this encounter Medical Devices Not on filedocumented as of this encounter Visit Diagnoses Diagnosis Encounter for screening mammogram for malignant neoplasm of breast- Primary Other screening mammogram documented in this encounter Care Teams Grounds And Nursery Specialist Relationship Specialty Start Date End Date Garett Bernal MD [address] [place] [address] [place] [address] PCP - General Family Medicine 01/13/24 documented as of this encounter
--- OUTSIDE RECORDS SUMMARY | 2024-09-10 03:26 | External Medical Summary | Summary of Care ---
Author Name Unknown Organization [facility] Address [address] [facility] [place] [address] Phone [phone] Care Team Providers Care News Director Name Role Phone Garett Bernal MD Primary Care Provide r Reason for Visit * Reason Comments Allergy Return Encounter Details Date Type Department Care Team (Late st Contact Info) Description 03/23/2024 10:00 AM EDT Office Visit Allergy/Immunology [facility] [place] [address] [place] [address] Haydee Parrish PA-C [address] [place] [address] Moderate persistent asthma without complication*; Non-seasonal allergic rhinitis due to animal hair and dander; Mixed rhinitis; Restrictive pattern present on pulmonary function testing; Acute non-recurrent maxillary sinusitis Allergies No known active allergiesdocumented as of this encounter (statuses as of 03/23/2024) Medications Medication Sig Dispensed Refills Start Date End Date Status Probiotic Product (DIGESTIVE ADVANTAGE) CAPS One daily 11/11/2016 Active Acetaminophen ER 650 MG Oral Tablet Extended Release Take 1 Tablet by mouth every 8 hours as needed for Fever. Active Biotin 1000 MCG Tablet Take 1 Tablet by mouth in the morning and 1 Tablet before bedtime. Active Blood Glucose Monitoring Suppl (PasswordBankTOUCH ULTRA 2) w/Device KITIndications:Type 2 diabetes mellitus with hemoglobin A1c goal of less than 7.0% ([facility]) Test blood sugar daily DxE11.9 1 Kit 01/11/2020 Active OneTouch Delica Plus [id number] s:Type 2 diabetes mellitus with hemoglobin A1c [...] Active Sertraline HCl 100 MG Oral Tablet (Zoloft)Indications :Panic disorder TAKE ONE TABLET BY MOUTH EVERY DAY IN THE MORNING. 90 Tablet 3 06/06/2023 Active Vitamin C Oral Tablet Chewable Take 1 Tablet by mouth in the morning. Active Atorvastatin Calcium 20 MG Oral Tablet (Lipitor) TAKE ONE TABLET BY MOUTH AT BEDTIME 90 Tablet 3 08/26/2023 Active metFORMIN HCl 1000 MG Oral Tablet (Glucophage)Indicat ions:Type 2 diabetes mellitus with hemoglobin A1c goal of less than 7.0% ([facility]) take 1 tablet in the morning and 1 tablet in the evening with meals. 180 Tablet 3 09/04/2023 Active Dulera 200-5 MCG/ACT Inhalation Aerosol (Mometasone-Formote rol) Inhale 2 Puffs by mouth in the morning and 2 Puffs before bedtime. 39 g 3 10/29/2023 Active Triamcinolone Acetonide 0.1 % External Cream (Aristocort)Indicat ions:Other eczema Apply topically to affected area 2 times a day. apply topically to affected area 2 times per day. 90 g 1 11/30/2023 Active OneTouch Ultra In Vitro Strip (Glucose Blood)Indications:T ype 2 diabetes mellitus with hemoglobin A1c goal of less than 7.0% ([facility]) test blood sugar twice daily 200 Strip 3 11/27/2023 Active Ozempic (0.25 or 0.5 MG/DOSE) 2 MG/3ML Solution Pen-injector (Semaglutide(0.25 or 0.5MG/DOS))Indicati ons:Type 2 diabetes mellitus with hemoglobin A1c goal of less than 7.0% (HCC),Body mass index (BMI) of 45.0 to 49.9 in adult ([facility]) Inject 0.5 mg under the skin once a week. 3 mL 5 11/30/2023 Active Sulindac 200 MG Oral TabletIndications:A rthralgia of both hands,Pain in both feet TAKE [...] Active Metoprolol Tartrate 50 MG Oral Tablet (Lopressor)Indicati ons:Paroxysmal ventricular tachycardia (HCC) TAKE ONE TABLET BY MOUTH TWICE DAILY 180 Tablet 3 02/27/2024 Active Amoxicillin-Pot Clavulanate 875-125 MG Oral Tablet (Augmentin) Take 1 Tablet by mouth in the morning and 1 Tablet before bedtime. 14 Tablet 03/23/2024 Active Fluconazole 150 MG Oral Tablet (Diflucan) Take 1 Tablet by mouth once for 1 dose. 1 Tablet 1 03/23/2024 03/23/2024 Active documented as of this encounter (statuses as of 03/23/2024) Active Problems Problem Noted Date Diagnosed Date [...] as of this encounter (statuses as of 03/23/2024) Resolved Problems Problem Noted Date Diagnosed Date [...] as of this encounter (statuses as of 03/23/2024) Immunizations Name Administration Dates Next Due COVID-19 [...] Sign Reading Time Taken Comments Blood Pressure 128/82 03/23/2024 10:12 AM EDT Pulse 76 03/23/2024 10:12 AM EDT Temperature - - Respiratory Rate 16 03/23/2024 10:12 AM EDT Oxygen Saturation 97% 03/23/2024 10:12 AM EDT Inhaled Oxygen Concentration - - Weight 135.2 kg (298 lb) 03/23/2024 10:12 AM EDT Height - - Body Mass Index 49.59 03/22/2024 3:48 PM EDT documented in this encounter Progress Notes * Haydee Parrish PA-C - 03/23/2024 10:00 AM EDT SUBJECTIVE: Vero is here today for follow-up of her moderate persistent asthma and mixed rhinitis. She's had sinus pressure, nasal congestion, postnasal drainage which is irritating her throat. She's also had bilateral aural fullness and some pain and dizziness, right is worse than left. Symptoms have not been improving and have been getting worse over the last two weeks. She denies fevers or sick contacts. She isn't coughing. Asthma is stable with current regimen of Dulera 2 puffs twice dailyand Singulair 10 mg daily. She hasn't required albuterol. She's taking Zyrtec 10 mg once daily. Shehasn't tried any nasal sprays as they give her headaches. She denies nocturnal asthma symptoms. No recent URI or ED or urgent care visits. She is still exposed to 2 cats at home, but tries to keep them out of her bedroom. She notes symptoms worsened when she closed the windows about two weeks ago. Asthma control test obtained on 03/23/2024 revealed a score of 24 which suggests well-controlled asthma. Asthma control test obtained on 03/23/2023 revealed a score of 23 which suggests well-controlled asthma. Asthma control test 01/15/22 revealed a score 17, consistent with moderately controlled asthma. Asthma control test obtained on October 24, 2020 revealed a score of 18 which suggest well controlled asthma. Asthma Control Test Summary, Results are Patient Reported The overall score is: 17 suggesting: Moderately Controlled asthma for the survey taken on: 03/28/2019 1:21:21 PM. Patient Active Problem List Diagnosis Panic disorder Asthma, moderate persistent Paroxysmal ventricular tachycardia ([facility]) Mixed rhinitis Non-seasonal allergic rhinitis due to animal hair and dander Type 2 diabetes mellitus with hemoglobin A1c goal of less than 7.0% ([facility]) Body mass index (BMI) of 45.0 to 49.9 in adult ([facility]) Generalized osteoarthritis of multiple sites Restrictive pattern present on pulmonary function testing Primary osteoarthritis of both knees Current Outpatient Medications Medication Sig Dispense Refill Probiotic Product (DIGESTIVE ADVANTAGE) CAPS One daily Acetaminophen ER 650 MG Oral Tablet Extended Release Take 1 Tablet by mouth every 8 hours as neededfor Fever. Biotin 1000 MCG Tablet Take 1 Tablet by mouth in the morning and 1 Tablet before bedtime. Vitamin D3 25 MCG (1000 UT) Oral Tablet Take 1 Tablet by mouth in the morning. Sertraline HCl 100 MG Oral Tablet (Zoloft) TAKE ONE TABLET BY MOUTH EVERY DAY IN THE MORNING. 90 Tablet 3 Vitamin C Oral Tablet Chewable Take 1 Tablet by mouth in the morning. Atorvastatin Calcium 20 MG Oral Tablet (Lipitor) TAKE ONE TABLET BY MOUTH AT BEDTIME 90 Tablet 3 metFORMIN HCl 1000 MG Oral Tablet (Glucophage) take 1 tablet in the morning and 1 tablet in the evening with meals. 180 Tablet 3 Dulera 200-5 MCG/ACT Inhalation Aerosol (Mometasone-Formoterol) Inhale 2 Puffs by mouth in the morning and 2 Puffs before bedtime. 39 g 3 Triamcinolone Acetonide 0.1 % External Cream (Aristocort) Apply topically to affected area 2 times a day. apply topically to affected area 2 times per day. 90 g 1 Ozempic (0.25 or 0.5 MG/DOSE) 2 MG/3ML Solution Pen-injector (Semaglutide(0.25 or 0.5MG/DOS)) Inject 0.5 mg under the skin once a week. 3 mL 5 Sulindac 200 MG Oral Tablet TAKE ONE TABLET BY MOUTH IN THE MORNING AND ONE BEFORE BEDTIME 60 Tablet 5 Lisinopril 2.5 MG Oral Tablet (Prinivil) TAKE ONE TABLET BY MOUTH EVERY DAY 90 Tablet 1 Montelukast Sodium 10 MG Oral Tablet (Singulair) take one tablet by mouth once daily in the Tablet 3 Cetirizine HCl 10 MG Oral Tablet (ZyrTEC) TAKE ONE TABLET BY MOUTH IN THE MORNING 90 Tablet 0 Metoprolol Tartrate 50 MG Oral Tablet (Lopressor) TAKE ONE TABLET BY MOUTH TWICE DAILY 180 Tablet 3 Amoxicillin-Pot Clavulanate 875-125 MG Oral Tablet (Augmentin) Take 1 Tablet by mouth in the morning and 1 Tablet before bedtime. 14 Tablet 0 Fluconazole 150 MG Oral Tablet (Diflucan) Take 1 Tablet by mouth once for 1 dose. 1 Tablet 1 Blood Glucose Monitoring Suppl (CarZumer ULTRA 2) w/Device KIT Test blood sugar daily DxE11.9 1 Kit0 MethylGeneuch Delica Plus [id number] use to test blood sugar up to twice a day. DX e11.9 200 Each 3 Diclofenac Sodium 1 % External Gel (Voltaren) place 2gm topically on the skin 2 times a day. apply to affected area as directed 100 g 2 OfficeDrop Ultra In Vitro Strip (Glucose Blood) test blood sugar twice daily 200 Strip 3 Ventolin HFA 108 (90 Base) MCG/ACT Inhalation Aerosol Solution INHALE TWO PUFFS BY MOUTH EVERY FOURHOURS NEEDED for cough, shortness of breath or wheezing 18 g 0 No current facility-administered medications for this visit. Review of patient's allergies indicates: No Known Allergies Social History Tobacco Use Smoking status: Never Smokeless tobacco: Never Vaping Use Vaping status: Never Used Substance Use Topics Alcohol use: Yes Comment: occasional Drug use: No Social History Narrative Environment/Occupation/Activities of Daily Living: She is living in a 2 story house. There is oil forced air heat and wood pellet stove. There is no air conditioning. Basement is unfinished, damp with water problems and mold. 2 cats are in the home. Bedroom is 1st floor and carpeted. Sleeps on a mattress bed. 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 BP 128/82 | Pulse 76 | Resp 16 | Wt 135.2 kg (298 lb) | LMP 07/23/2017 | SpO2 97% | BMI 49.59 kg/m | BSA 2.49 m PHYSICAL EXAM: GENERAL: No acute distress. EYES: Conjunctiva- normal; Eyelids - normal EARS: TM's - clear NOSE: erythematous mucosa; Mild Inferior turbinate edema; no nasal polyps or mucopus; Septum - normal OROPHARYNX: Teeth and gums - normal; Mild erythema, cobblestoning; No lesions, exudates; Narrow posterior pharyngeal opening. NECK: Supple; No thyroid enlargment or cervical adenopathy RESPIRATORY: Clear to A and P; No wheezes; Decreased breath sounds bilaterally. No intercostal retractions or accessory muscle use CARDIOVASCULAR: RRR; No gallops, rubs, clicks, or murmurs. LYMPHATIC: No significant adenopathy noted SKIN: No evidence atopic dermatitis; no urticaria or angioedema Normal skin quality OBJECTIVE DATA: Spirometry 01/15/22 revealed a normal FEV1/FVC ratio of 82%. FEV1 1.74 L, 63% of predicted. FVC 2.14L, 61% of predicted. Findings are most consistent with moderate restriction. No significant change since previous PFTs of 07/22/17 Full PFT's 07/22/17 Spirometry was normal. There was a significant bronchodilator response in FVC and FEV1. Flow volume loops were mixed. The RV & RV/TLC ratio was increased consistent with air trapping. The single breath carbon monoxide diffusion capacity uncorrected for hemoglobin was normal.Compared to the prior study on 07/14/17 the FEV1 and FVC have improved significantly. This interpretation has been electronically signed: Abimbola Sims MD 07/22/2017 11:14:00 AM CHEST 2 VIEWS 07/16/2017 HISTORY: restrictive changes on pulmonary function tests. COMPARISON: None. FINDINGS: Cardiomediastinal silhouette is within normal limits. Lungs are well inflated without focal airspace consolidation, pleural effusion or pneumothorax identified. Pulmonary vasculature is grossly unremarkable. No acute osseous abnormality is seen. Authenticated By Authenticating Date Authenticating Time Reading Providers(s) CARLEEN LOZANO MD 07-18-2017 17:55 CARLEEN LOZANO MD Impression IMPRESSION: No acute cardiopulmonary process is identified. Spirometry performed on July 14, 2017 revealed no evidence of obstructive disease. Restriction possible. FEV1/FVC was normal at 82%. FEV1 was 1.62, 58% of predicted. FVC was 1.96, 56% of predicted. There is a 6% increase in her FEV1 following bronchodilator administration. Allergy skin testing 03/03/17 revealed significant positive reactions to cat and dog dander. All other skin tests including the foods pineapple and wheat were negative in the face of adequate positivehistamine controls. Spirometry 03/03/17 revealed a reduced FEV1/FVC ratio of 78%. FEV1 is 1.32 L, 43% of predicted. FVC is 1.7 L, 44% of predicted. Findings consistent with severe obstructive airways disease, [id number]% improvement noted in FEV1 post beta 2 agonist bronchodilator . ASSESSMENT: ICD-10-CM 1. Moderate persistent asthma without complication J45.40 2. Non-seasonal allergic rhinitis due to animal hair and dander J30.81 3. Mixed rhinitis J31.0 4. Restrictive pattern present on pulmonary function testing R94.2 5. Acute non-recurrent maxillary sinusitis J01.00 PLAN: Avoidance measures regarding animal danders and nonallergic triggers are still recommended. Her asthma control has been much improved since she was switched to a higher dose of Dulera 200/5 mcg, 2 puffs twice daily. She will also continue Singulair 10 mg daily and albuterol as her rescue medication. If these are not enough to control her symptoms she will contact the office acutely. Thereis also a significant restrictive component to her pulmonary function tests which can be a contributing factor to her ongoing dyspnea. She will continue Zyrtec for her nasal symptoms. I'm concerned about a sinus infection currently given timeline and physical exam today. We will start Augmentin twice daily for 7 days. Supportive care recommended. She will start a normal saline rinse as well.. She can add in Benadryl as needed. If she has worsening nasal symptoms because of exposure to animal dander, then allergy immunotherapy could be considered as well. Haydee Parrish PA-C Allergy and Immunology [facility] Supervising Physician: Gordo Lozada MD Type of Supervision: Direct I spent a total of 20-29 minutes (exact time 26 mins) on the date of service in preparation, delivery, and documentation of the care provided to Vero Watson excluding any time spent in the performance of separately billed services. (This note was completed using the dictation program Fluency Direct. As such, there may be misspellings, word substitutions, or other variations that should not change the essence of the clinical content of this encounter note.If there is need for further clarification, please direct questions to the provider listed above.) documented in this encounter Nursing Notes * Pamela Rodriguez LPN - 03/23/2024 10:07 AM EDT The pt has been properly identified by confirmation of name and date of . Pt here for return visit. documented in this encounter Plan of Treatment Upcoming Encounters Date Type Department Care Team (Late st Contact Info) Description 08/25/2024 12:30 PM EST Imaging Radiology [address] [place] [address] 09/20/2024 10:00 AM EDT Office Visit Family Medicine [address] [place] [phone] Abbey Calero PA-C [address] [place] [address] [place] [id number] 03/24/2025 10:00 AM EDT Office Visit Allergy/Immunology [facility] [address] [facility] [place] [address] Haydee Parrish PA-C [address] [facility] [place] [address] 04/28/2025 10:40 AM EST Office Visit Family Medicine [address] [place] [address] Garett Bernal MD [address] [place] [address] [place] [id number] Scheduled Procedures Name Priority Associated Diagnoses Date/Ti [...] as of this encounter Visit Diagnoses Diagnosis Moderate persistent asthma without complication- Primary Unspecified asthma Non-seasonal allergic rhinitis due to animal hair and dander Mixed rhinitis Chronic rhinitis Restrictive pattern present on pulmonary function testing Acute non-recurrent maxillary sinusitis documented in this encounter Care Teams News Director Relationship Specialty Start Date End Date Garett Bernal MD [address] [place] [address] [place] [id number] PCP - General Family Medicine 01/13/24 documented as of this encounter"
--- OUTSIDE RECORDS SUMMARY | 2024-09-10 03:26 | External Medical Summary ---
Author Name Unknown Address Unknown Organization K01:[facility] - [address] [place] [address] Laboratory Report Ordering Provider Test Date Status ALEXANDRE HERNANDEZ 03/29/2024 10:39:17 Final Observation Date Value Abnormality Reference (Units ) Status Triglyceride 03/29/2024 10:39:17 156 <=174 ( mg/dL) Final Triglyceride Reference Range s (mg/dL):
<150 Acceptable
150-174 Borderline high
175-499 High
>=500 Very high Cholesterol 03/29/2024 10:39:17 160 <200 (mg /dL) Final Total Cholesterol Reference Ranges (mg/dL):
<200 Desirable
200-239 Borderline high
>=240 High HDL 03/29/2024 10:39:17 66 >49 (mg/dL ) Final HDL Cholesterol Reference Ra nges (mg/dL):
>=60 High (Desirable)
<50 Low (Undesirable) For Females
<40 Low (Undesirable) For Males NON-HDL CHOLESTEROL 03/29/2024 10:39:17 94 <=159 (mg/dL) Final Non-HDL Cholesterol Referenc e Range (mg/dL):
<100 Target level for high risk ASCVD patient
<130 Optimal for general population
130-159 Near optimal for general population
160-189 Borderline High
190-219 High
>=220 Very High Performing Location [facility] - [address] [place] [address]
--- OUTSIDE RECORDS SUMMARY | 2024-09-10 03:26 | External Medical Summary | Summary of Care ---
Author Name Unknown Organization [facility] Address [address] [facility] [place] [address] Phone [phone] Care Team Providers Care Litigation Docket Manager Name Role Phone Garett Bernal MD Primary Care Provide r Reason for Visit * Reason Comments Follow Up Knee Pain B/l knee Encounter Details Date Type Department Care Team (Latest Contact Info) Description 04/14/2024 10:30 AM EDT Office Visit Orthopaedics [address] [phone] Johny Scanlon MD [address] [place] [address] Primary osteoarthritis of both knees* Allergies No [...] before bedtime. Active Blood Glucose Monitoring Suppl (Enova SystemsUCH ULTRA 2) w/Device KITIndications:Type 2 diabetes mellitus with hemoglobin A1c goal of less than 7.0% ([facility]) Test blood sugar daily DxE11.9 1 Kit 01/11/2020 Active OneTouch Delica Plus [id number] :Type 2 diabetes mellitus with hemoglobin A1c goal of less than 7.0% ([facility]) use to test blood sugar up [...] hemoglobin A1c goal of less than 7.0% ([facility]) take 1 tablet in the morning [...] hemoglobin A1c goal of less than 7.0% ([facility]) test blood sugar twice daily 200 Strip 3 11/27/2023 Active Ozempic (0.25 or 0.5 MG/DOSE) 2 MG/3ML Solution Pen-injector (Semaglutide(0.25 or 0.5MG/DOS))Indicatio ns:Type 2 diabetes mellitus with hemoglobin A1c goal of less than 7.0% ([facility]),Body mass index (BMI) of 45.0 to 49.9 in adult ([facility]) Inject 0.5 mg under the skin [...] Tablet before bedtime. 14 Tablet 03/23/2024 Active Benton-3 Fish Oil 1000 MG Oral Capsule (Benton-3) Take 2 Capsules by mouth in the [...] knees 10 mg IX ONCE 04/14/2024 04/14/2024 Active Triamcinolone Acetonide (Kenalog) 40 MG/ML inj 40 mgIndications:Primary osteoarthritis of both knees 40 mg IX ONCE 04/14/2024 04/14/2024 Active lidocaine 1 % inj 10 mgIndications:Primary osteoarthritis of both knees 10 mg IX ONCE 04/14/2024 04/14/2024 Active Triamcinolone Acetonide (Kenalog) 40 MG/ML inj 40 mgIndications:Primary osteoarthritis of both knees 40 mg IX ONCE 04/14/2024 04/14/2024 Active documented as of this encounter (statuses [...] MD - 04/14/2024 10:12 AM EDT Vero Watson [id number] Vero Watson is a 58 year old female who presents for f/u to [facility] for left greater than right knee injury/pain. I saw her originally for bilateral knee pain on 02/24/18 Most recent visit regarding bilateral knee pain was on 02/04/2024 and was a telephone encounter Vero Watson is here unaccompanied Quality: reviewed and agree [...] Asthma, moderate persistent 01/07/2010 BMI 40.0-44.9, adult ([facility]) Combined senile cataract 02/05/2023 [facility], no diabetic retinopathy Obesity, morbid (more than 100 lbs over ideal weight or BMI > 40) ([facility]) Palpitation Panic disorder Paroxysmal ventricular tachycardia ([facility]) 02/09/2010 seen on memory loop Plantar fasciitis of right foot 05/05/2012 Type 2 diabetes mellitus with hemoglobin A1c goal of less than 7.0% ([facility]) 01/11/2020 Family History Problem Relation Name Age of Onset Hypertension Mother Stroke Mother Diabetes Father Allergies Sister nasal allergies Breast Cancer Sister Allergies Brother 2 brothers with allergic rhinitis Heart Disorder Brother 49 [place], stent in LAD Diabetes Grandmother (Maternal) Breast [...] file Gets together: Not on file Attends sikhism service: Not on file Active member of [...] recent hemoglobin A1c from 03/29/2024 was 6.8 After connecting to the patient via telephone, the patient was identified by name and date of . Patient was then informed that this was a telephone call only visit. The patient agreed to participate. Visit Disposition: Routine follow-up Total call duration was 2 minutes. 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 Pt is unaccompanied today Araceli Jones LPN documented in this encounter Plan of Treatment Upcoming Encounters Date Type Department Care Team (Late st Contact Info) Description 04/14/2024 11:00 AM EDT Imaging Radiology [address] [place] [address] Arrived 06/23/2024 1:00 PM EST Office Visit Orthopaedics [address] [phone] Johny Scanlon MD [address] [place] [address] 06/30/2024 1:00 PM EST Office Visit Orthopaedics [address] [phone] Johny Scanlon MD [address] [place] [address] 07/07/2024 1:00 PM EST Office Visit Orthopaedics [address] [phone] Johny Scanlon MD [address] [place] [address] 08/25/2024 12:30 PM EST Imaging Radiology [address] [place] [address] 09/20/2024 10:00 AM EDT Office Visit Family Medicine [address] [phone] Abbey Calero PA-C [address] [place] [address] [place] [id number] 03/24/2025 10:00 AM EDT Office Visit [facility] [address] [facility] [place] [address] Haydee Parrish PA-C [address] [facility] [place] [address] 04/28/2025 10:40 AM EST Office Visit Family Medicine [address] [place] [phone] Garett Bernal MD [address] [place] [address] [place] [address] Scheduled Orders Name Type Priority Associated Diagnoses Orde r Schedule POINT OF CARE US MAJOR JOINT INJECTION, ORTHO Medical Imaging Routine Primary osteoarthritis of both knees Ordered: 04/14/2024 Scheduled Procedures Name Priority Associated Diagnoses Date/Ti [...] leg documented in this encounter Care Teams Litigation Docket Manager Relationship Specialty Start Date End Date Garett Bernal MD [address] [place] [address] [place] [id number] PCP - General Family Medicine 01/13/24 documented as of this encounter
--- OUTSIDE RECORDS SUMMARY | 2024-09-10 03:26 | External Medical Summary | Summary of Care ---
Author Name Unknown Organization [facility] Address [address] [place] [facility] [place] [address] Phone [phone] Care Team Providers Care Mumps Developer Name Role Phone Garett Bernal MD Primary Care Provide r Reason for Visit * Reason Comments Outpatient Testing Encounter Details Date Type Department Care Team (Late st Contact Info) Description 03/29/2024 10:40 AM EDT Laboratory Laboratory [address] [place] [phone] [place], Lab [address] [place] [address] Type 2 diabetes mellitus with hemoglobin A1c goal of less than 7.0% ([facility]); Dyslipidemia, goal LDL below 100; Encounter for long-term (current) use of medications Allergies No known active allergiesdocumented as of this encounter (statuses as of 03/29/2024) Medications Medication Sig Dispensed Refills Start Date End Date Status Probiotic Product (DIGESTIVE ADVANTAGE) CAPS One daily 11/11/2016 Active Acetaminophen ER 650 MG Oral Tablet Extended Release Take 1 Tablet by mouth every 8 hours as needed for Fever. Active Biotin 1000 MCG Tablet Take 1 Tablet by mouth in the morning and 1 Tablet before bedtime. Active Blood Glucose Monitoring Suppl (BookacoachTOUCH ULTRA 2) w/Device KITIndications:Type 2 diabetes mellitus with hemoglobin A1c goal of less than 7.0% (HCC) Test blood sugar daily DxE11.9 1 Kit 01/11/2020 Active OneTouch Delica Plus [id number] :Type 2 diabetes mellitus with hemoglobin A1c [...] of less than 7.0% ([facility]) take 1 tablet in the [...] of less than 7.0% ([facility]) test blood sugar twice daily [...] Tablet before bedtime. 14 Tablet 03/23/2024 Active Velva-3 Fish Oil 1000 MG Oral Capsule (Velva-3) Take 2 Capsules by mouth in the morning and 2 Capsules before bedtime. 03/23/2024 Active documented as of this encounter (statuses as of 03/29/2024) Active Problems Problem Noted Date Diagnosed Date [...] as of this encounter (statuses as of 03/29/2024) Resolved Problems Problem Noted Date Diagnosed Date [...] as of this encounter (statuses as of 03/29/2024) Immunizations Name Administration Dates Next Due COVID-19 [...] Description 08/25/2024 12:30 PM EST Imaging Radiology [address] [place] [address] 09/20/2024 10:00 AM EDT Office Visit Family Medicine [address] [place] [phone] Abbey Calero PA-C [address] [place] [address] [place] [address] 03/24/2025 10:00 AM EDT Office Visit Allergy/Immunology [facility] [address] [place] [address] Haydee Parrish PA-C [address] [place] [address] 04/28/2025 10:40 AM EST Office [address] Medicine [address] [phone] Garett Bernal MD [address] [place] [address] [place] [address] Pending Results Name Type Priority Associated Diagnoses Date /Time COMPREHENSIVE METABOLIC PANEL Lab Routine Type 2 diabetes mellitus with hemoglobin A1c goal of less than 7.0% ([facility]) Dyslipidemia, goal LDL below 100 03/29/2024 10:39 AM EDT HEMOGLOBIN A1C Lab Routine Type 2 diabetes mellitus with hemoglobin A1c goal of less than 7.0% ([facility]) 03/29/2024 10:39 AM EDT LIPID PANEL WITH DIRECT LDL IF TG IS HIGH Lab Routine Dyslipidemia, goal LDL below 100 03/29/2024 10:39 AM EDT VITAMIN B12 Lab Routine Encounter for long-term (current) use of medications 03/29/2024 10:39 AM EDT Scheduled Procedures Name Priority [...] 04/03/2021, 03/28/2019, Additional history exists Albumin/Creatinine Ratio 07/16/202407/16/2 024, 05/28/2022, 07/24/2020 GFR 07/16/2024 07/16/2023, 12/20, [...] A1c goal of less than 7.0% (HCC) Dyslipidemia, goal LDL below 100 Other and unspecified hyperlipidemia Encounter for long-term (current) use of medications Encounter for long-term (current) use of other medications documented in this encounter Care Teams Mumps Developer Relationship Specialty Start Date End Date Garett Bernal MD [address] [place] [address] [place] [address] PCP - General Family Medicine 01/13/24 documented as of this encounter
--- OUTSIDE RECORDS SUMMARY | 2024-09-10 03:26 | External Medical Summary | Summary of Care ---
Author Name Unknown Organization [facility] Address [address] [facility] [place] [address] Phone [phone] Care Team Providers Care Refinery Operator Gas Plant Name Role Phone Garett Bernal MD Primary Care Provide r Reason for Visit * Reason Onset Date Comments Med Request 04/14/2024 Encounter Details Date Type Department Care Team (Late st Contact Info) Description 04/14/2024 Telephone Orthopaedics [facility] [address] [place] [address] Johny Rendon MD [address] [place] [address] Med Request Allergies No known active allergiesdocumented [...] before bedtime. Active Blood Glucose Monitoring Suppl (TimePointsTOUCH ULTRA 2) w/Device KITIndications:Type 2 diabetes mellitus with hemoglobin A1c goal of less than 7.0% ([facility]) Test blood sugar daily DxE11.9 1 Kit 01/11/2020 Active OneTouch Delica Plus [id number] :Type 2 diabetes mellitus with hemoglobin A1c [...] Tablet before bedtime. 14 Tablet 03/23/2024 Active [place]-3 Fish Oil 1000 MG Oral Capsule ([place]-3) Take 2 Capsules by mouth in the [...] encounter Miscellaneous Notes * Telephone Encounter - Emy Logan MED ASSIST - 04/14/2024 11:36 AM EDT Orthopaedics Pre-Cert Request Medication/Disease State Information: Medication: Hyaluronate- Gelsyn-3 ([id number]): inject 16.8 mg (2 mL) once weekly for 3 weeks (total of 6 injections). Route to [id number] Is there radiological proof(x-ray, cat scan, mri [...] 06/23/2024 1:00 PM EST Office Visit Orthopaedics [place] [phone] Johny Rendon MD [address] [place] [address] 06/30/2024 1:00 PM EST Office Visit Orthopaedics [address] [phone] Johny Rendon MD [address] [facility] [place] [address] 07/07/2024 1:00 PM EST Office Visit Orthopaedics [address] [phone] Johny Rendon MD [address] [facility] [place] [address] 08/25/2024 12:30 PM EST Imaging Radiology [address] [place] [address] 09/20/2024 10:00 AM EDT Office Visit Family Medicine [address] [phone] Abbey Calero PA-C [address] [place] [address] [place] [address] 03/24/2025 10:00 AM EDT Office Visit Allergy/Immunology [facility] [place] [address] [facility] [place] [address] Haydee Parrish PA-C [address] [facility] [place] [address] 04/28/2025 10:40 AM EST Office Visit Family Medicine [address] [phone] Garett Bernal MD [address] [place] [address] [place] [address] Scheduled Procedures Name Priority Associated Diagnoses Date/Ti [...] filedocumented as of this encounter Care Teams Refinery Operator Gas Plant Relationship Specialty Start Date End Date Garett Bernal MD [address] [place] [address] [place] [phone] PCP - General Family Medicine 01/13/24 documented as of this encounter
--- OUTSIDE RECORDS SUMMARY | 2024-09-10 03:26 | External Medical Summary | Summary of Care ---
Author Name Unknown Organization [facility] Address [address] [place] [facility] [place] [address] Phone [phone] Care Team Providers Care Instructional Coach Name Role Phone Garett Bernal MD Primary Care Provide r Reason for Visit * Reason Comments Follow Up Knee Pain B/l knee Encounter Details Date Type Department Care Team (Latest Contact Info) Description 04/14/2024 10:30 AM EDT Office Visit Orthopaedics [address] [phone] Johny Scanlon MD [address] [place] [address] Primary osteoarthritis of both knees* Allergies No [...] before bedtime. Active Blood Glucose Monitoring Suppl (BlushrUCH ULTRA 2) w/Device KITIndications:Type 2 diabetes mellitus with hemoglobin A1c goal of less than 7.0% ([facility]) Test blood sugar daily DxE11.9 1 Kit 01/11/2020 Active OneTouch Delica Plus [id number] :Type 2 diabetes mellitus with hemoglobin A1c [...] Tablet before bedtime. 14 Tablet 03/23/2024 Active Cicero-3 Fish Oil 1000 MG Oral Capsule (Cicero-3) Take 2 Capsules by mouth in the [...] - 04/14/2024 10:12 AM EDT Vero Watson [id number] Vero Watson is a 58 year old female who presents for f/u to [facility] Orthopaedics and Sports Medicine for left [...] with allergic rhinitis Heart Disorder Brother [address] [place], stent in LAD Diabetes Grandmother (Maternal) Breast [...] file Gets together: Not on file Attends catholic service: Not on file Active member of [...] Scanlon MD Primary Care Sports Medicine Orthopaedics [address] [address] documented in this encounter Nursing Notes * Marily Cool LPN - 04/14/2024 9:47 AM EDT F/u Bilateral knee pain Pt denies pain at this visit Pt stated that her knees hurt while at work Pt works as a [employer] and is on her feet for 8 hr shifts x 40 hrs weekly Pt is unaccompanied today Araceli Jones LPN documented in this encounter Plan of Treatment Upcoming Encounters Date Type Department Care Team (Late st Contact Info) Description 06/23/2024 1:00 PM EST Office Visit Orthopaedics [address] [phone] Johny Scanlon MD [address] [place] [address] 06/30/2024 1:00 PM EST Office Visit Orthopaedics [address] [address] Johny Scanlon MD [address] [place] [address] 07/07/2024 1:00 PM EST Office Visit Orthopaedics [address] [address] Johny Scanlon MD [address] [place] [address] 08/25/2024 12:30 PM EST Imaging Radiology [address] [place] [address] 09/20/2024 10:00 AM EDT Office Visit Family Medicine [address] [phone] Abbey Calero PA-C [address] [place] [address] [place] [address] 03/24/2025 10:00 AM EDT Office Visit Allergy/Immunology [facility] [address] [facility] [place] [address] Haydee Parrish PA-C [address] [facility] [place] [address] 04/28/2025 10:40 AM EST Office Visit Family Medicine [address] [phone] Garett Bernal MD [address] [place] [address] [place] [address] Scheduled Orders Name Type Priority Associated Diagnoses [...] 40 mg 40 mg, Intra-Articular, ONCE, On Dorinad 04/14/24 at 1100, For 1 dose Given 04/14/2024 11:35 AM EDT 40 mg Knee Right Triamcinolone Acetonide (Kenalog) 40 MG/ML inj 40 mg 40 mg, Intra-Articular, ONCE, On Dorinda 04/14/24 at 1100, For 1 dose Given 04/14/2024 11:34 AM EDT 40 mg Knee Left documented in this encounter Care Teams Instructional Coach Relationship Specialty Start Date End Date Garett Bernal MD [address] [place] [address] [place] [phone] PCP - General Family Medicine 01/13/24 documented as of this encounter
--- OUTSIDE RECORDS SUMMARY | 2024-09-10 03:26 | External Medical Summary ---
Author Name Unknown Address Unknown Organization [id number]:LABORATORY [facility] - [address] [place] [address] Laboratory Report Ordering Provider Test Date Status ALEXANDRE HERNANDEZ 03/29/2024 10:39:17 Final Observation Date Value Abnormality Reference (Units ) Status LDL, (direct) 03/29/2024 10:39:17 67 <=129 (mg/dL) Final LDL Cholesterol Reference Ra nges (mg/dL):
<70 Target level for high risk ASCVD patient
<100 Optimal for general population
100-129 Near optimal for general population
130-159 Borderline high
160-189 High
>=190 Very high Performing Location LABORATORY [facility] - [address] [place] [address]
--- OUTSIDE RECORDS SUMMARY | 2024-09-10 03:26 | External Medical Summary ---
Author Name Unknown Address Unknown Organization [id number]:LABORATORY [facility] [place] - [address] [place] [address] Laboratory Report Ordering Provider Test Date Status ALEXANDRE HERNANDEZ 03/29/2024 10:39:17 Final Observation Date Value Abnormality Reference (Units ) Status BUN 03/29/2024 10:39:17 12 6-20 (mg/dL) Final Creatinine 03/29/2024 10:39:17 0.6 0.5-1.0 (mg/dL) Final Glomerular filtration rate/1.73 sq M.predicted [Volume Rate/Area] in Serum, Plasma or Blood by Creatinine-based formula (CKD-EPI) 03/29/2024 10:39:17 >90 >=60 (mL/min) Final eGFR is calculated based on the CKD-EPI 2020 equation. Sodium 03/29/2024 10:39:17 142 135-146 (m mol/L) Final Potassium 03/29/2024 10:39:17 4.4 3.5-5.1 (m mol/L) Final Cl 03/29/2024 10:39:17 105 98-107 (mm ol/L) Final CO2 03/29/2024 10:39:17 26 22-32 (mmo l/L) Final Anion gap 03/29/2024 10:39:17 11 7-15 (mmol /L) Final Glucose 03/29/2024 10:39:17 99 70-120 (mg /dL) Final Albumin 03/29/2024 10:39:17 4.5 3.8-5.0 (g /dL) Final AST (Aspartate aminotransferase) 03/29/2024 10:39:17 19 10-35 (U/L) Final Alk Phos 03/29/2024 10:39:17 79 35-130 (U/ L) Final Bilirubin, Total 03/29/2024 10:39:17 0.4 <=1 .2 (mg/dL) Final Calcium 03/29/2024 10:39:17 9.5 8.4-10.2 ( mg/dL) Final Protein 03/29/2024 10:39:17 7.1 6.0-8.3 (g /dL) Final ALT (Alanine aminotransferase) 03/29/2024 10:39:17 24 10-35 (U/L) Final Performing Location LABORATORY [facility] [place] - [address] [facility] [address]
--- OUTSIDE RECORDS SUMMARY | 2024-09-10 03:26 | External Medical Summary ---
Author Name Unknown Address Unknown Organization [id number]:[facility] - [address] [place] [address] Laboratory Report Ordering Provider Test Date Status ALEXANDRE HERNANDEZ 03/29/2024 10:39:17 Final Observation Date Value Abnormality Reference (Units ) Status Vitamin B12 03/29/2024 10:39:17 [phone] (pg/mL) Final Performing Location LAB[facility]ATORY [facility] - [address] [place] [address]
--- OUTSIDE RECORDS SUMMARY | 2024-09-10 03:26 | External Medical Summary | Summary of Care ---
Author Name Unknown Organization [facility] Address [address] [place] [address] Phone [phone] Care Team Providers Care Tape Librarian Name Role Phone Mary Bernal MD Primary Care Provide r Reason for Visit * Reason Comments eRx-Medication Refill Encounter Details Date Type Department Care Team (Late st Contact Info) Description 03/31/2024 Refill Family Medicine [address] [phone] Mary Bernal MD [address] [place], [place] [address] [phone] Panic disorder Allergies No known active allergiesdocumented as of this encounter (statuses as of 03/31/2024) Medications Medication Sig Dispensed Refills Start Date End Date Status Probiotic Product (DIGESTIVE ADVANTAGE) CAPS One daily 11/11/2016 Active Acetaminophen ER 650 MG Oral Tablet Extended Release Take 1 Tablet by mouth every 8 hours as needed for Fever. Active Biotin 1000 MCG Tablet Take 1 Tablet by mouth in the morning and 1 Tablet before bedtime. Active Blood Glucose Monitoring Suppl ([place] ULTRA 2) w/Device KITIndications:Ty pe 2 diabetes mellitus with hemoglobin A1c goal of less than 7.0% ([facility]) Test blood sugar daily DxE11.9 1 Kit 01/11/2020 Active OneTouch Delica Plus [id number] ons:Type 2 diabetes mellitus with hemoglobin A1c [...] of less than 7.0% ([facility]) take 1 tablet in the morning and [...] of less than 7.0% ([facility]) test blood sugar twice daily 200 Strip [...] Tablet before bedtime. 14 Tablet 03/23/2024 Active [place]-3 Fish Oil 1000 MG Oral Capsule ([place]-3) Take 2 Capsules by mouth in the morning and 2 Capsules before bedtime. 03/23/2024 Active Sertraline HCl 100 MG Oral Tablet (Zoloft)Indicatio ns:Panic disorder TAKE ONE TABLET BY MOUTH IN THE MORNING 90 Tablet 1 03/31/2024 Active Sertraline HCl 100 MG Oral Tablet (Zoloft)Indicatio ns:Panic disorder TAKE ONE TABLET BY MOUTH EVERY DAY IN THE MORNING. 90 Tablet 3 06/06/2023 4 Discontinued documented as of this encounter (statuses as of 03/31/2024) Active Problems Problem Noted Date Diagnosed Date [...] as of this encounter (statuses as of 03/31/2024) Resolved Problems Problem Noted Date Diagnosed Date [...] as of this encounter (statuses as of 03/31/2024) Immunizations Name Administration Dates Next Due COVID-19 [...] encounter Miscellaneous Notes * Telephone Encounter - Priti Beltran RPh - 03/31/2024 6:14 PM EDT Signed Prescriptions: Disp Refills Sertraline HCl 100 MG Oral Tablet (Zoloft) 90 Tab*1 Sig: TAKE ONE TABLET BY MOUTH IN THE MORNINGAuthorizing Provider: MARY BERNALOrderyuliya User: PRITI BELTRAN documented in this encounter Plan of Treatment Upcoming Encounters Date Type Department Care Team (Late st Contact Info) Description 08/25/2024 12:30 PM EST Imaging Radiology [address] [place] [address] 09/20/2024 10:00 AM EDT Office Visit Family Medicine [address] [phone] Abbey Calero PA-C [address] [place] [address] [place] [address] 03/24/2025 10:00 AM EDT Office Visit Allergy/Immunology [employer] [address] [place] [address] Haydee Parrish PA-C [address] [facility] [place] [address] 04/28/2025 10:40 AM EST Office Visit Family Medicine [address] [phone] Mary Bernal MD [address] [place] [address] [place] [address] Scheduled Procedures Name Priority Associated Diagnoses Date/Ti [...] 02/2017, 10/31/2013, Additional history exists COVID-19 Vaccine (2023- season) 2024 10/05/2020, 09/07/2020 Influenza Vaccine (FLU [...] as of this encounter Visit Diagnoses Diagnosis Panic disorder Panic disorder without agoraphobia documented in this encounter Care Teams Tape Librarian Relationship Specialty Start Date End Date Mary Bernal MD [address] [place] [address] [place] [phone] PCP - General Family Medicine 01/13/24 documented as of this encounter
--- OUTSIDE RECORDS SUMMARY | 2024-09-10 03:26 | External Medical Summary | Summary of Care ---
Author Name Unknown Organization [facility] Address [address] [place] [place] [address] Phone [phone] Care Team Providers Care Financial Sales Advisor Name Role Phone Garett Bernal MD Primary Care Provide r Reason for Visit * Reason Comments Re-Check Encounter Details Date Type Department Care Team (Latest Contact Info) Description 03/22/2024 4:20 PM EDT Office Visit Family Medicine [address] [phone] Garett Bernal MD [address] [place] [address] [place] [id number] Type 2 diabetes mellitus with hemoglobin A1c goal of less than 7.0% ([facility])*; Moderate persistent asthma without complication; Paroxysmal ventricular tachycardia (HCC); Body mass index (BMI) of 45.0 to 49.9 in adult ([facility]); Non-seasonal allergic rhinitis due to animal hair and dander; Panic disorder; Generalized osteoarthritis of multiple sites; Dyslipidemia, goal LDL below 100; Encounter for long-term (current) use of medications Allergies No known active allergiesdocumented as of this encounter (statuses as of 03/22/2024) Medications Medication Sig Dispensed Refills Start Date End Date Status Probiotic Product (DIG[employer]IVE [employer]VANTAGE) CAPS One daily 11/11/2016 Active Acetaminophen ER 650 MG Oral Tablet Extended Release Take 1 Tablet by mouth every 8 hours as needed for Fever. Active Biotin 1000 MCG Tablet Take 1 Tablet by mouth in the morning and 1 Tablet before bedtime. Active Blood Glucose Monitoring Suppl ([employer] ULTRA 2) w/Device KITIndications:Type 2 diabetes mellitus with hemoglobin A1c goal of less than 7.0% (HCC) Test blood sugar daily DxE11.9 1 Kit 01/11/2020 Active TraxianTouch Delica Plus [id number] :Type 2 diabetes mellitus with hemoglobin A1c [...] per day. 90 g 1 11/30/2023 Active TraxianToMetavana Ultra In Vitro Strip (Glucose Blood)Indications:Ty pe [...] TWICE DAILY 180 Tablet 3 02/27/2024 Active documented as of this encounter (statuses as of 03/22/2024) Active Problems Problem Noted Date Diagnosed Date [...] as of this encounter (statuses as of 03/22/2024) Resolved Problems Problem Noted Date Diagnosed Date [...] as of this encounter (statuses as of 03/22/2024) Immunizations Name Administration Dates Next Due COVID-19 [...] Reading Time Taken Comments Blood Pressure 124/76 03/22/2024 3:48 PM EDT Pulse 66 03/22/2024 3:48 PM EDT Temperature 36.4 C (97.5 F) 03/22/2024 3:48 PM ED T Respiratory Rate - - Oxygen Saturation - - Inhaled Oxygen Concentration - - Weight 133.4 kg (294 lb) 03/22/2024 3:48 PM EDT Height 165.1 cm (5' 5") 03/22/2024 3:48 PM EDT Body Mass Index 48.92 03/22/2024 3:48 PM EDT documented in this encounter Progress Notes * Garett Bernal MD - 03/22/2024 4:00 PM EDT Subjective: Vero Watson is a 58 year old female. Chief Complaint Patient presents with Re-Check HPI: Brief Clinical History Ms. Watson is a 58 year old female last seen in [facility] on 12/03/2023 by Abbey Calero She has a h/o the following chronic conditions indicated on the problem list: Chronic Conditions Asthma, moderate persistent Body mass index (BMI) of 45.0 to 49.9 in adult ([facility]) Type 2 diabetes mellitus with hemoglobin A1c goal of less than 7.0% ([facility]) Has had pain in her ears off and on for the last few days. Does have chronic allergies and sees allergy tomorrow. Also has asthma. No fever or chills. Occasional chronic cough. No wheezing. Is takingher Zyrtec, Singulair, and uses Dulera and albuterol. Denies any recent asthma flares. Has had postnasal drip. Her cats have been inside and is allergic to them. Has not been checking sugars at home. Is on Ozempic. Get forgetting to take her dose but has been more consistent lately and just increased to the 0.5 mg weekly. No hypoglycemia. Blood pressure has been good. Moods have been stable. Follows with orthopedics for arthritis and her knee pain. Declines flu shot today but will get it later or at the pharmacy. Declines COVID booster. Results for orders placed or performed in visit on 07/16/23 ALBUMIN / CREATININE RATIO, URINE Result Value Ref Range Albumin, Random Urine 26.10 mg/dL Creatinine, Random Urine 109 mg/dL Albumin / Creatinine Ratio, Urine 239 (H) <30 mg/g Creat HEMOGLOBIN A1C Result Value Ref Range Hemoglobin A1C 6.3 (H) 4.0 - 5.6 % Estimated Average Glucose 134 (H) <126 mg/dL BASIC METABOLIC PANEL Result Value Ref Range BUN 20 6 - 20 mg/dL CREATININE 0.7 0.5 - 1.0 mg/dL EGFR >90 >=60 mL/min SODIUM 142 135 - 146 mmol/L POTASSIUM 5.0 3.5 - 5.1 mmol/L CHLORIDE 104 98 - 107 mmol/L CO2 26 22 - 32 mmol/L ANION GAP 12 7 - 15 mmol/L GLUCOSE 99 70 - 120 mg/dL CALCIUM 9.4 8.4 - 10.2 mg/dL LIPID PANEL WITH DIRECT LDL IF TG IS HIGH Result Value Ref Range Triglycerides 179 (H) <=174 mg/dL Cholesterol 165 <200 mg/dL HDL Cholesterol 65 >49 mg/dL Non-HDL Cholesterol 100 <=159 mg/dL ALT Result Value Ref Range ALT 21 10 - 35 U/L VITAMIN B12 Result Value Ref Range Vitamin B12 345 232 - 1,245 pg/mL LDL CHOLESTEROL (DIRECT MEASURE) Result Value Ref Range LDL Cholesterol (Direct Measure) 72 <=129 mg/dL Hemoglobin AIC Results: Lab Results Component Value Date/Time HEMOGLOBIN A1C - [facility] 6.3 (H) 07/16/2023 09:34 AM HEMOGLOBIN A1C - [facility] 6.7 (H) 01/07/2023 10:22 AM HEMOGLOBIN A1C - [facility] 6.4 (H) 05/28/2022 08:26 AM HEMOGLOBIN A1C - [facility] 6.7 (H) 07/16/2020 07:34 AM HEMOGLOBIN A1C - [facility] 8.6 (H) 01/10/2020 10:45 AM PHM: Patient Active Problem List Diagnosis Panic disorder Asthma, moderate persistent Paroxysmal ventricular tachycardia (HCC) Mixed rhinitis Non-seasonal allergic rhinitis due to animal hair and dander Type 2 diabetes mellitus with hemoglobin A1c goal of less than 7.0% (HCC) Body mass index (BMI) of 45.0 to 49.9 in adult (HCC) Generalized osteoarthritis of multiple sites Restrictive pattern [...] the morning and 1 Tablet before bedtime. Blood Glucose Monitoring Suppl ([employer] ULTRA 2) w/Device KIT Test blood sugar daily DxE11.9 1 Kit0 [employer] Delica Plus [id number] use to test blood sugar up to twice a day. DX e11.9 200 Each 3 Diclofenac Sodium 1 % External Gel (Voltaren) place 2gm topically on the skin 2 times a day. apply to affected area as directed 100 g 2 Vitamin D3 25 MCG (1000 UT) Oral [...] 2 times per day. 90 g 1 Active Endpoints Ultra In Vitro Strip (Glucose Blood) test blood sugar twice daily 200 Strip 3 Ozempic (0.25 or 0.5 MG/DOSE) 2 MG/3ML [...] MOUTH IN THE MORNING 90 Tablet 0 Ventolin HFA 108 (90 Base) MCG/ACT Inhalation Aerosol Solution INHALE TWO PUFFS BY MOUTH EVERY FOURHOURS NEEDED for cough, shortness of breath or wheezing 18 g 0 Metoprolol Tartrate 50 MG Oral Tablet (Lopressor) TAKE ONE TABLET BY MOUTH TWICE DAILY 180 Tablet 3 No current facility-administered medications for this visit. Past Medical History: Diagnosis Date Asthma, allergic 1986 Asthma, moderate persistent 01/07/2010 BMI 40.0-44.9, adult ([facility]) Combined senile cataract 02/05/2023 [facility], no diabetic retinopathy Obesity, morbid (more than 100 lbs over ideal weight or BMI > 40) ([facility]) Palpitation Panic disorder Paroxysmal ventricular tachycardia ([facility]) 02/09/2010 seen on memory loop Plantar fasciitis of right foot 05/05/2012 Type 2 diabetes mellitus with hemoglobin A1c goal of less than 7.0% ([facility]) 01/11/2020 Past Surgical History: Procedure Laterality Date DELIVERY x2 COLONOSCOPY, DIAGNOSTIC (RECTUM) 08/30/2018 fair prep, repeat 3 yrs/[facility] COLONOSCOPY, DIAGNOSTIC (RECTUM) 12/03/2022 diverticulosis, repeat 10 yrs /[facility] EGD, FLEXIBLE, DIAGNOSTIC 05/24/2019 esophagitis / [facility] HYSTEROSCOPY W/BIOPSY AND/OR POLYPECTOMY W/WO D&C 07/2017 LIGATE/CUT OVIDUCT(S) MAMMOGRAM SCREENING BILATERAL 08/16/2010 needs addtl imaging of both breasts-needs 6mth f/u bilaterally REMOVAL OF TONSILS, AGE 12+ 1985 Social History Socioeconomic History Marital status: Spouse name: Not on file Number of children: 2 Years of education: Not on file Highest education level: Not on file Occupational History Employer: [employer] Tobacco Use Smoking status: Never Smokeless tobacco: Never Vaping Use Vaping status: Never Used Substance and Sexual Activity Alcohol use: Yes Comment: occasional Drug use: No Sexual activity: Not Currently Partners: Male control/protection: Surgical Comment: tubal Other Topics Concern Not on file Social History Narrative Not on file Social Determinants of Health Financial Resource Strain: Not on file Food Insecurity: Not on file Transportation Needs: Not on file Social Connections: Unknown (03/22/2024) Social Connections How often do you feel lonely or isolated from those around you? (Adult - for ages 18 years and over): Not on file Housing Stability: Not on file Review of patient's allergies indicates: No Known Allergies Objective: BP 124/76 | Pulse 66 | Temp 36.4 C (97.5 F) (Tympanic) | Ht 1.651 m (5' 5") | Wt 133.4 kg (294 lb) | LMP 07/23/2017 | BMI 48.92 kg/m | BSA 2.47 m Physical Exam: General: alert, no distress, well nourished, and well developed Head: Normocephalic, No masses, lesions, tenderness or abnormalities Eye Exam: PERRLA, extraocular movements intact, conjunctiva are pink and non- injected, sclera clear Ears: External ears normal, Canals clear, R TM air and or fluid interface, L TM air and or fluid interface Nose: no mucosal erythema, no mucosal edema, no purulent discharge Oropharynx: no exudate, no erythema, lips, buccal mucosa, and tongue normal, mucous membranes are moist, and post nasal drip Neck: supple, no adenopathy, no bruits Heart: regular rate & rhythm, no murmur, and no gallops Lungs: chest symmetric with normal AP diameter, no chest deformities noted, no chest wall tenderness, lungs clear to auscultation Extremities: no edema, no clubbing, no cyanosis Neuro Exam: alert & oriented x 3 with fluent speech, no focal motor/sensory deficits, gait normal Extensive ROS Constitutional (f/c/wt/vision/hearing): see above hpi Resp (cough/sob/sanches): see above hpi CV (cp/palp/fluttering/diaphoresis/sanches/pnd):Negative GI (n/v/d/hrtburn): Negative Endo (hair/cold or heat intol/ 3 p's): see above hpi Neuro (shaking/weak/fatigu/parasthesi/): Negative Skin (rash/easy bruis/xerosis): Negative Psy (si/hi/halluc/): see above hpi (nocturia/hesit/drib/sexual review): Negative Lymph (swollen glands/b sx's/: Negative ASSESSMENT: Type 2 diabetes mellitus with hemoglobin A1c goal of less than 7.0% ([facility]) (Primary)--controlled. Just recently increased to 0.5 mg weekly. Has had issues with nausea in the past on the 0.5 mg but is doing OK so far. Return for labs. Continue metformin 1000 mg twice daily. - COMPREHENSIVE METABOLIC PANEL; Future; Expected date: 03/22/2024 - HEMOGLOBIN A1C; Future; Expected date: 03/22/2024 Moderate persistent asthma without complication--controlled with Dulera and albuterol PRN. Paroxysmal ventricular tachycardia (HCC)--rate controlled with metoprolol tartrate 50 mg twice daily. Body mass index (BMI) of 45.0 to 49.9 in adult ([facility])--patient counseling on weight management given. Non-seasonal allergic rhinitis due to animal hair and dander--having flare due to pollen and cats being inside. Continue Singulair 10 mg daily, cetirizine 10 mg daily, and follow-up with allergy tomorrow as scheduled. Panic disorder--controlled with sertraline 100 mg daily. Generalized osteoarthritis of multiple sites--stable. Follows with orthopedics. Dyslipidemia, goal LDL below 100--controlled with atorvastatin 20 mg daily. Return for labs. - COMPREHENSIVE METABOLIC PANEL; Future; Expected date: 03/22/2024 - LIPID PANEL WITH DIRECT LDL IF TG IS HIGH; Future; Expected date: 03/22/2024 Encounter for long-term (current) use of medications--is on metformin. - VITAMIN B12; Future; Expected date: 03/22/2024 Follow Up: Return in about 6 months (around 09/20/2024) for Clinic Visit. | For: Clinic Visit PLAN: Continue present medication(s): Schedule labs: A1C, CMP, lipid panel, and B12. Will have them done tomorrow morning before allergy appointment. Patient education: Discussed allergies, asthma, and diabetes control. Discussed flu vaccine. Follow up: in 6 month(s). Garett Bernal MD documented in this encounter Plan of Treatment Upcoming Encounters Date Type Department Care Team (Late st Contact Info) Description 03/23/2024 10:00 AM EDT Office Visit Allergy/Immunology Jo[facility] [place] [address] [place] [id number] Haydee Parrish PA-C [address] [place] [id number] 08/25/2024 12:30 PM EST Imaging Radiology [address] [place] [id number] 09/20/2024 10:00 AM EDT Office Visit [address] [place] [phone] Abbey Calero PA-C [address] [place] [address] [place] [id number] 04/28/2025 10:40 AM EST Office Visit [address] [phone] Garett Bernal MD [address] [place] [address] [place] [id number] Scheduled Orders Name Type Priority Associated Diagnoses Orde r Schedule COMPREHENSIVE METABOLIC PANEL Lab Routine Type 2 diabetes mellitus with hemoglobin A1c goal of less than 7.0% (HCC) Dyslipidemia, goal LDL below 100 Expected: 03/22/2024 (Approximate), Expires: 03/22/2025 HEMOGLOBIN A1C Lab Routine Type 2 diabetes mellitus with hemoglobin A1c goal of less than 7.0% (HCC) Expected: 03/22/2024 (Approximate), Expires: 03/22/2025 LIPID PANEL WITH DIRECT LDL IF TG IS HIGH Lab Routine Dyslipidemia, goal LDL below 100 Expected: 03/22/2024, Expires: 03/22/2025 VITAMIN B12 Lab Routine Encounter for long-term (current) use of medications Expected: 03/22/2024 (Approximate), Expires: 03/22/2025 Scheduled Procedures Name Priority Associated Diagnoses Date/Ti [...] goal of less than 7.0% ([facility])- Primary Moderate persistent asthma without complication Unspecified asthma Paroxysmal ventricular tachycardia (HCC) Paroxysmal ventricular tachycardia Body mass index (BMI) of 45.0 to 49.9 in adult (HCC) Non-seasonal allergic rhinitis due to animal hair and dander Panic disorder Panic disorder without agoraphobia Generalized osteoarthritis of multiple sites Generalized osteoarthrosis, involving multiple sites Dyslipidemia, goal LDL below 100 Other and unspecified hyperlipidemia Encounter for long-term (current) use of medications Encounter for long-term (current) use of other medications documented in this encounter Care Teams Financial Sales Advisor Relationship Specialty Start Date End Date Garett Bernal MD [address] [place] [address] [place] [id number] PCP - General Family Medicine 01/13/24 documented as of this encounter
[2024-09-10 08:25] LABS: Basophils # (auto) 0.03 K/uL (0.00-0.20); Basophils % (auto) 0.7 %; Eosinophils % (auto) 11.5 %; Hematocrit (blood only) 41.6 % (37.0-47.0); Hemoglobin 13.3 g/dl (12.0-16.0); Immature Granulocytes # (auto) 0.01 K/uL (0.01-0.20); Immature Granulocytes % (auto) 0.2 %; Lymphocytes # (auto) 1.33 K/uL (1.20-3.40); Lymphocytes % (auto) 30.6 %; Mean Corpuscular Hemoglobin 28.4 pg (25.0-34.0); Mean Corpuscular Volume 88.7 fL (80.0-100.0); Mean Platelet Volume 9.9 fL (9.4-12.4); Monocytes # (auto) 0.31 K/uL (0.11-0.59); Monocytes % (auto) 7.1 %; Neutrophils # (auto) 2.17 K/uL (1.40-6.50); Neutrophils % (auto) 49.9 %; Platelet Count 182 K/uL (130-400); RDW Coefficient of Variation 13.9 % (11.5-14.5); RDW Standard Deviation 44.7 fL (36.4-46.3); Red Blood Count 4.69 M/uL (4.20-5.40); White Blood Count 4.35 K/ul (4.8-10.8)
[2024-09-10 08:43] LABS: BUN Creatinine Ratio 28.6 (10-20); Calcium 9.5 mg/dl (8.6-10.3); Chol HDL Ratio 2.6 (0-5); Creatinine Clr Calc Pharmacy 179.6 ml/min; Potassium 4.2 mmol/L (3.5-5.1)
[2024-09-10 09:08] LABS: Estimated Average Glucose 146 mg/dl; Hemoglobin A1C 6.7 % (4.5-5.6)
[2024-09-10] MEDS: ASPIRIN 81 MG ECTAB PO SCH (09:08)
[2024-09-10] MEDS: METOPROLOL TARTRATE 25 MG TAB PO SCH (09:08)
[2024-09-10] MEDS: FLUTICASONE/VILANTEROL 200/25MCG 14 PUFFS/INHALER INH SCH (09:09)
[2024-09-10] MEDS: ENOXAPARIN INJ 40 MG/0.4 ML SYR SQ SCH (09:10)
--- NOTE | 2024-09-10 10:08 | Neurology Consultation ---
Date of Consultation September 10, 2024 Assessment & Plan (1) Decreased vision of left eye: Vero Watson is a 59 yo woman w/ h/o DM2 who presents for evaluation of monocular vision change described as a smudge in left vision. MRI negative for stroke, CT/CTA unremarkable for significant atherosclerotic disease. Her vision changes seem more likely to relate to primary eye problem than stroke although stroke is possible. Given this, reasonable to maintain on ASA while work-up ongoing but she does not necessarily have an indication for asa long-term if this is not related to CRAO. Risk factors are otherwise well controlled with A1c< 7.0, LDL< 70. -- Opthalmology consult either inpatient or soon outpatient -- Continue Aspirin 81 mg daily -- Stroke risk factor reduction with goal BP<130/80, LDL< 70, A1c<7.0 -- Neurology follow-up x 1 month, can discuss further work-up and/or coming off asa Telehealth Consultation Telehealth Information Telehealth Information: I performed this visit using a real-time telehealth connection between my location and the patients location ([facility]). After connecting through interactive tele-video, patient was identified by name and date of and/or wristband check.Patient (or authorized healthcare junior sales representative) was informed that this was a telemedicine visit and it was being conducted confidentially over secure lines. My office door was closed and no one else was present in the room with me.Patient (or authorized healthcare junior sales representative) provided consent to proceed with the visit, expressed an understanding of privacy and security of the telemedicine visit, and gave permission to have a hospital junior sales representative in the room in order to assist with the visit and to conduct portions of the visit, as needed. I informed the patient (or authorized healthcare junior sales representative) that I reviewed their record and presented the opportunity for them to ask any questions regarding the visit today. The patient agreed to participate. History of Present Illness Reason for Consultation: TIA Requesting Physician: Dr. Velarde Attending Physician: Mary Pollard MD History of Present Illness Per Admission H&P: "Patient is 59-year-old female with PMH asthma, DM II, paroxysmal ventricular tachycardia, panic disorder, morbid obesity presented to ER with complaint of left eye vision issue x 1 day.Patient states noticed last night around 7 PM that she had vision issues with her left eye. She describes it as a "cloud" in the lower half of her vision from her left eye that is obstructing vision from lower portion of eye field of left eye. Patient seen at PCPs office 09/06/2024 for reported bilateral eye itchiness and crusting in the morning in which was treated with erythromycin ointment. Patient states last used yesterday and reports resolution of eye itchiness. Denies any further redness or discharge from eye. Denies fever/chills, diaphoresis, N/V/D/C, DELGADO, dizziness, syncope, other vision loss, diplopia, eye pain, neck pain, CP, SOB, cough, abdominal pain, paresthesias, weakness, extremity weakness, extremity edema, rashes, dysuria, hematuria." Speaking to her she states she has a smudge in the vision in her left eye, she noticed this while reading, watching t.v. initially stated she thought it may be a smudge with her glasses. Denies othere symptoms such as numbness/weakness/speech changes. Denies headache. Denies a curtain-like sensation coming over her eye. Does not necessarily say this came on suddenly but moreso she gradually noticed it. Allergies Allergy/AdvReac Type Severity Reaction Status Date / Time No Known Allergies Allergy Verified 09/09/24 18:08 Home Medications Medication Instructions Recorded Confirmed Type acetaminophen 650 mg 650 mg PO Q8H PRN Pain 08/20/18 09/09/24 History tablet,extended release (Tylenol Arthritis Pain) albuterol sulfate 90 mcg/actuation 2 puff inhalation Q4H PRN 08/20/18 09/09/24 History aerosol inhaler (Ventolin HFA) Shortness Of Breath cetirizine 10 mg tablet 10 mg PO HS 08/20/18 09/09/24 History metoprolol tartrate 50 mg tablet 50 mg PO BID 08/20/18 09/09/24 History montelukast 10 mg tablet 10 mg PO HS 08/20/18 09/09/24 History triamcinolone acetonide 0.1 % 1 applic topical BID PRN itching 08/20/18 09/09/24 History topical cream diclofenac sodium 1 % topical gel 2 g topical QID PRN Pain 11/25/22 09/09/24 History lisinopril 2.5 mg tablet 2.5 mg PO HS 11/25/22 09/09/24 History metformin 1,000 mg tablet 1,000 mg PO BID 11/25/22 09/09/24 History mometasone-formoterol HFA 200 2 puff inhalation BID 11/25/22 09/09/24 History mcg-5 mcg/actuation aerosol inhaler (Dulera) sertraline 100 mg tablet 100 mg PO HS 11/25/22 09/09/24 History sulindac 200 mg tablet 200 mg PO BID 11/25/22 09/09/24 History Patient History Medical History Mixed rhinitis Diabetes mellitus, type 2 Sleep apnea does not use device Paroxysmal ventricular tachycardia per S record Morbid obesity with BMI of 50.0-59.9, adult Asthma inhaler daily/prn Nausea and vomiting after administration of anesthetic agent Osteoarthritis Anxiety Periodic heart flutter currently taking metoprolol Surgical History History of colonoscopy History of section x2 History of dilatation and curettage History of bilateral tubal ligation History of tooth extraction all teeth removed History of tonsillectomy Family History Father Family history of diabetes mellitus Aunt Family history of diabetes mellitus Uncle Family history of diabetes mellitus Grandfather (Maternal) Family history of diabetes mellitus Grandfather (Paternal) Family history of diabetes mellitus Grandmother (Paternal) Family history of diabetes mellitus Grandmother (Maternal) Family history of diabetes mellitus Sister Family hx colonic polyps Other No family history of adverse response to anesthesia Social History Smoking Status: Never smoker Second Hand Exposure: No; Do You Dip or Chew Tobacco: No; Tobacco Cessation Education Requested by Patient: No Hx Alcohol Use: No Hx Substance Use: No Preferred Language: Russian Communication Ability: Effective Landing Gear Mechanic Required: No Beliefs That Will Affect Care: None Current Living Situation: Spouse Other Information That Helps Us Care for You: No Feels Safe at Home: Yes Safety Concerns: Feels Safe At This Time Assistive Devices: Glasses Physical Exam Patient resting comfortably in bed, conversatn, able to answer questions follow commands. Moves all extremities against gravity. No facial droop or gaze deviation, pupils equal in size. Notes a smudge in left eye vision. Results & Data Vital Signs (Past 12 Hours) Vital Signs Temp Pulse Pulse Pulse Resp BP BP 09/10/24 08:02 36.8 C 68 18 141/85 H 09/10/24 07:00 89 09/10/24 03:16 36.6 C 67 18 138/79 09/09/24 23:14 69 09/09/24 23:05 36.6 C 65 19 159/83 H Pulse Ox O2 Del Method 09/10/24 08:02 92 Room Air 09/10/24 07:00 09/10/24 03:16 93 Room Air 09/09/24 23:14 09/09/24 23:05 93 Room Air Laboratory Results A1c 6.7 LDL 64 Diagnostic Findings MRI Brain 09/09: No acute intracranial abnormality CTA H/N No LVO or significant atherosclerotic disease
--- NOTE | 2024-09-10 13:43 | Hospitalist Progress Note ---
Date of Service September 10, 2024 Assessment & Plan (1) Decreased vision of left eye: (2) Diabetes mellitus, type 2: (3) Asthma: (4) Paroxysmal ventricular tachycardia: (5) Morbid obesity with BMI of 50.0-59.9, adult: Plan Patient is 59-year-old female with PMHx significant for asthma, DM II, panic disorder, morbid obesity who presented to the ER with complaint of left eye vision issue x 1 day. Stroke-like symptoms Blurry Vision, left eye Hx of senile cataracts OU on recent outpatient optometry visit 2022 Improved vision since arrival at the ER Head CT, head and neck CTA, brain MRI all unremarkable for acute stroke Hgba1c 6.7 Lipid panel with elevated triglycerides, LDL <70 Echo positive for bubble study Aspirin for stroke prevention Neurology consult Re: Transient left blurred vision. Recommended/ stated the following: "...Ophthalmology consult either inpatient or soon outpatient Continue Aspirin 81 mg daily Stroke risk factor reduction with goal BP<130/80, LDL< 70, A1c<7.0 Neurology follow-up x 1 month, can discuss further work-up and/or coming off asa..." continue to monitor Hypertensive Emergency Elevated Troponin Demand Ischemia Pt presented with significantly elevated BP Trop elevated with downtrend 91 to 79 EKG without acute ischemic changes Echo with noted LVH, diastolic dysfunction and noted PFO Cardiology consulted, appreciate recs Paroxysmal VT as per records Question of this diagnosis Bronchial asthma/restrictive lung disease stable on regimen DAVID on CPAP Morbid obesity encourage cpap for nightly use yuriy given HTN DM 2 on oral medications well-controlled as of recent hemoglobin A1c sliding scale while hospitalized Diet: HH/DMII DVT prophylaxis. Lovenox subcu Full code Admission and Anticipated Discharge Date Admission Date: September 09, 2024 Subjective pt was seen in the AM Stated that the left eye still had the blurry vision at the time Denied any chest pain or SOB. Notes that she has been having increased stressors at work Review of Systems Review of Systems: All systems reviewed & are unremarkable except as noted in Subjective Physical Exam Physical Exam: General: Alert, oriented. No acute distress Neuro: No gross deficits except for decreased vision in left eye HEENT: NC/AT CV: RRR Resp: Breath sounds clear bilaterally, no increased effort of breathing Abdomen: Soft, nontender Extremities: No edema in lower extremities bilaterally. Results & Data Results & Data Vital Signs (Past 12 Hours) Vital Signs Temp Pulse Pulse Resp BP Pulse Ox O2 Del Method 09/10/24 11:42 36.8 C 62 18 160/87 H 93 Room Air 09/10/24 08:02 36.8 C 68 18 141/85 H 92 Room Air 09/10/24 07:00 89 09/10/24 03:16 36.6 C 67 18 138/79 93 Room Air
--- NOTE | 2024-09-10 13:48 | Cardiology Consultation ---
Date of Consultation September 10, 2024 Assessment & Plan (1) Elevated troponin I level: (2) Uncontrolled hypertension: (3) Morbid obesity: Plan - Heart rate currently well-controlled -Blood pressure is significantly elevated on presentation is likely causing secondary demand ischemia -Recommend optimizing antihypertensive regimen -ECG reviewed indicates sinus rhythm with no ischemic changes -Increase lisinopril to 40 mg daily and transition from metoprolol to carvedilol 12.5 mg twice daily -Record indicates a history of paroxysmal ventricular tachycardia however I was unable to locate evidence of this on review of her record at [facility] and at [facility] in [facility] Case Reviewed with JOSE LUIS Adams [facility] Cardiology Supervising Physician Co-Signing Physician Notes I agree with the assessment and plan as documented by JOSE LUIS Hess. I provided 80 min of care to the patient in regards to management of hypertensive emergency. History of Present Illness Reason for Consultation: Elevated Troponin Requesting Physician: Hospitalist Attending Physician: Mary Pollard MD History of Present Illness 59-year-old female seen in consultation today in regard to elevated troponin. Presented to the emergency room yesterday for further evaluation of visual disturbances that have been going on for 1 day prior to presentation. She has no mild medical history of morbid obesity, asthma, type 2 diabetes, hypertension. She was noted to be significantly hypertensive on presentation which has improved. Allergies Allergy/AdvReac Type Severity Reaction Status Date / Time No Known Allergies Allergy Verified 09/09/24 18:08 Home Medications Medication Instructions Recorded Confirmed Type acetaminophen 650 mg 650 mg PO Q8H PRN Pain 08/20/18 09/09/24 History tablet,extended release (Tylenol Arthritis Pain) albuterol sulfate 90 mcg/actuation 2 puff inhalation Q4H PRN 08/20/18 09/09/24 History aerosol inhaler (Ventolin HFA) Shortness Of Breath cetirizine 10 mg tablet 10 mg PO HS 08/20/18 09/09/24 History metoprolol tartrate 50 mg tablet 50 mg PO BID 08/20/18 09/09/24 History montelukast 10 mg tablet 10 mg PO HS 08/20/18 09/09/24 History triamcinolone acetonide 0.1 % 1 applic topical BID PRN itching 08/20/18 09/09/24 History topical cream diclofenac sodium 1 % topical gel 2 g topical QID PRN Pain 11/25/22 09/09/24 History lisinopril 2.5 mg tablet 2.5 mg PO HS 11/25/22 09/09/24 History metformin 1,000 mg tablet 1,000 mg PO BID 11/25/22 09/09/24 History mometasone-formoterol HFA 200 2 puff inhalation BID 11/25/22 09/09/24 History mcg-5 mcg/actuation aerosol inhaler (Dulera) sertraline 100 mg tablet 100 mg PO HS 11/25/22 09/09/24 History sulindac 200 mg tablet 200 mg PO BID 11/25/22 09/09/24 History Patient History Medical History Mixed rhinitis Diabetes mellitus, type 2 Sleep apnea does not use device Paroxysmal ventricular tachycardia per S record Morbid obesity with BMI of 50.0-59.9, adult Asthma inhaler daily/prn Nausea and vomiting after administration of anesthetic agent Osteoarthritis Anxiety Periodic heart flutter currently taking metoprolol Surgical History History of colonoscopy History of section x2 History of dilatation and curettage History of bilateral tubal ligation History of tooth extraction all teeth removed History of tonsillectomy Family History Father Family history of diabetes mellitus Aunt Family history of diabetes mellitus Uncle Family history of diabetes mellitus Grandfather (Maternal) Family history of diabetes mellitus Grandfather (Paternal) Family history of diabetes mellitus Grandmother (Paternal) Family history of diabetes mellitus Grandmother (Maternal) Family history of diabetes mellitus Sister Family hx colonic polyps Other No family history of adverse response to anesthesia Social History Smoking Status: Never smoker Second Hand Exposure: No; Do You Dip or Chew Tobacco: No; Tobacco Cessation Education Requested by Patient: No Hx Alcohol Use: No Hx Substance Use: No Preferred Language: [place] Communication Ability: Effective Ways Operator Required: No Beliefs That Will Affect Care: None Current Living Situation: Spouse Other Information That Helps Us Care for You: No Feels Safe at Home: Yes Safety Concerns: Feels Safe At This Time Assistive Devices: Glasses Review of Systems Ear, Nose, Mouth, Throat: no dizziness Respiratory: no cough and no dyspnea on exertion Cardiovascular: no chest pain, no dyspnea on exertion, no palpitations and no edema Physical Exam Constitutional: WD/WN, vitals as above well developed, well nourished and + overweight; no acute distress Neck: trachea midline, no thyromegaly Respiratory: normal respiratory effort, lungs clear to auscultation Cardiovascular: Rate/Rhythm: regular rate and regular rhythm Vessels: no JVD Extremities: normal capillary refill; no edema Skin: no rashes, warm and dry Psychiatric: A+Ox3, euthymic affect Results & Data Vital Signs (Past 12 Hours) Vital Signs Temp Pulse Pulse Resp BP Pulse Ox O2 Del Method 09/10/24 11:42 36.8 C 62 18 160/87 H 93 Room Air 09/10/24 08:02 36.8 C 68 18 141/85 H 92 Room Air 09/10/24 07:00 89 09/10/24 03:16 36.6 C 67 18 138/79 93 Room Air Laboratory Results Cardiac Enzymes 09/09/24 09/09/24 Range/Units 17:51 19:31 AST 14 (13-39) U/L Troponin I High Sens 91.1 H* 79.2 H* D (0-14) pg/ml Coagulation 09/09/24 09/09/24 Range/Units 17:51 19:31 PT Cancelled 10.9 APTT Cancelled 27 Lipids 09/10/24 Range/Units 07:55 Triglycerides 190 H (0-150) mg/dl Cholesterol 166 (0-200) mg/dl HDL Cholesterol 63 mg/dl Cholesterol/HDL Ratio 2.6 (0-5) CBC 09/09/24 09/10/24 Range/Units 17:51 07:55 WBC 6.29 4.35 L (4.8-10.8) K/ul RBC 4.76 4.69 (4.20-5.40) M/uL Hgb 13.7 13.3 (12.0-16.0) g/dl Hct 42.9 41.6 (37.0-47.0) % Plt Count 207 182 (130-400) K/uL Neut # (Auto) 3.49 2.17 (1.40-6.50) K/uL Lymph # (Auto) 1.63 1.33 (1.20-3.40) K/uL [place] # (Auto) 0.42 0.31 (0.11-0.59) K/uL Eos # (Auto) 0.71 H 0.50 (0.00-0.50) K/uL Baso # (Auto) 0.02 0.03 (0.00-0.20) K/uL Comprehensive Metabolic Panel 09/09/24 09/10/24 Range/Units 17:51 07:55 Sodium 140 143 (136-145) mmol/L Potassium 4.2 4.2 (3.5-5.1) mmol/L Chloride 105 105 (98-107) mmol/L Carbon Dioxide 29 30 (21-32) mmol/L BUN 24 H 14 (6-23) mg/dl Creatinine 0.62 0.49 L (0.6-1.2) mg/dl Glucose 93 138 H (70-99(Fasting)) mg/dl Calcium 9.7 9.5 (8.6-10.3) mg/dl AST 14 (13-39) U/L ALT 17 (7-52) U/L Alkaline Phosphatase 79 (34-104) U/L Total Protein 8.2 (6.0-8.3) gm/dl Albumin 4.7 (3.4-5.0) gm/dl Intake and Output 09/09/24 09/10/24 09/10/24 22:59 06:59 14:59 Intake Total 200 / 200 Balance 200 / 200 Intake: IV 100 / 100 Magnesium Sulfate / D5w 1 gm In 100 / 100 100 ml @ 50 mls/hr IV ONE ONE Rx#:[id number] Oral 100 / 100 Other: # Unmeasured Voids 2 Weight 139 kg Weight Measurement Method Built in [facility]
--- NOTE | 2024-09-10 13:50 | Electrocardiogram Report ---
Test Reason : Blood Pressure : */* mmHG Vent. Rate : 78 BPM Atrial Rate : 78 BPM P-R Int : 150 ms QRS Dur : 84 ms QT Int : 384 ms P-R-T Axes : 60 16 44 degrees QTcB Int : 437 ms Normal sinus rhythm Normal ECG When compared with ECG of 27-Jul-2017 12:33, No significant change was found Confirmed by Karthik Watson ([id number]) on 09/10/2024 1:49:56 PM Referred By: REFERRED SELF Confirmed By: Karthik Watson
[2024-09-10] MEDS: lisinopril 40 MG TAB PO SCH (15:36)
[2024-09-10] MEDS: carvediloL 12.5 MG TAB PO SCH (17:43)
[2024-09-10] MEDS: CETIRIZINE HCL 10 MG TABLET PO SCH (20:22)
[2024-09-10] MEDS: SERTRALINE HCL 100 MG TABLET PO SCH (20:22)
[2024-09-10] MEDS: MONTELUKAST SODIUM 10 MG TABLET PO SCH (20:23)
[2024-09-10] MEDS ORDERED: lisinopril 2.5 MG TAB PO SCH (21:00)
[2024-09-11 07:10] LABS: Basophils # (auto) 0.03 K/uL (0.00-0.20); Basophils % (auto) 0.7 %; Eosinophils # (auto) 0.51 K/uL (0.00-0.50); Eosinophils % (auto) 11.7 %; Hematocrit (blood only) 39.8 % (37.0-47.0); Hemoglobin 12.7 g/dl (12.0-16.0); Immature Granulocytes # (auto) 0.01 K/uL (0.01-0.20); Immature Granulocytes % (auto) 0.2 %; Lymphocytes # (auto) 1.33 K/uL (1.20-3.40); Lymphocytes % (auto) 30.6 %; Mean Corpuscular Hemoglobin 28.6 pg (25.0-34.0); Mean Corpuscular Hgb Conc 31.9 g/dL (32.0-36.0); Mean Corpuscular Volume 89.6 fL (80.0-100.0); Mean Platelet Volume 10.1 fL (9.4-12.4); Monocytes # (auto) 0.42 K/uL (0.11-0.59); Monocytes % (auto) 9.7 %; Neutrophils # (auto) 2.05 K/uL (1.40-6.50); Neutrophils % (auto) 47.1 %; Platelet Count 181 K/uL (130-400); RDW Coefficient of Variation 13.8 % (11.5-14.5); RDW Standard Deviation 45.1 fL (36.4-46.3); Red Blood Count 4.44 M/uL (4.20-5.40); White Blood Count 4.35 K/ul (4.8-10.8)
[2024-09-11 07:37] LABS: BUN Creatinine Ratio 40.8 (10-20); Calcium 9.3 mg/dl (8.6-10.3); Creatinine Clr Calc Pharmacy 174.1 ml/min
[2024-09-11 08:08] VITALS: TEMP 97.7
--- NOTE | 2024-09-11 10:52 | Hospitalist Progress Note ---
Date of Service September 11, 2024 Assessment & Plan (1) Decreased vision of left eye: (2) Diabetes mellitus, type 2: (3) Asthma: (4) Paroxysmal ventricular tachycardia: (5) Morbid obesity with BMI of 50.0-59.9, adult: Plan Patient is 59-year-old female with PMHx significant for asthma, DM II, panic disorder, morbid obesity who presented to the ER with complaint of left eye vision issue x 1 day. Stroke-like symptoms Blurry Vision, left eye Hx of senile cataracts OU on recent outpatient optometry visit 2022 Improved vision since arrival at the ER Head CT, head and neck CTA, brain MRI all unremarkable for acute stroke Hgba1c 6.7 Lipid panel with elevated triglycerides, LDL <70 Echo positive for bubble study Aspirin for stroke prevention Neurology consult Re: Transient left blurred vision. Recommended/ stated the following: "...Ophthalmology consult either inpatient or soon outpatient Continue Aspirin 81 mg daily Stroke risk factor reduction with goal BP<130/80, LDL< 70, A1c<7.0 Neurology follow-up x 1 month, can discuss further work-up and/or coming off asa..." continue to monitor Hypertensive Emergency Elevated Troponin Demand Ischemia Pt presented with significantly elevated BP Trop elevated with downtrend 91 to 79 EKG without acute ischemic changes Echo with noted LVH, diastolic dysfunction and noted PFO Cardiology consulted, appreciate recs Paroxysmal VT as per records Question of this diagnosis Bronchial asthma/restrictive lung disease stable on regimen DAVID on CPAP Morbid obesity encourage cpap for nightly use yuriy given HTN DM 2 on oral medications well-controlled as of recent hemoglobin A1c sliding scale while hospitalized Diet: HH/DMII DVT prophylaxis. Lovenox subcu Full code Admission and Anticipated Discharge Date Admission Date: September 09, 2024 Physical Exam Physical Exam: General: Alert, oriented. No acute distress Neuro: No gross deficits except for decreased vision in left eye HEENT: NC/AT CV: RRR Resp: Breath sounds clear bilaterally, no increased effort of breathing Abdomen: Soft, nontender Extremities: No edema in lower extremities bilaterally. Results & Data Results & Data Vital Signs (Past 12 Hours) Vital Signs Temp Pulse Pulse Resp BP Pulse Ox O2 Del Method 09/11/24 08:08 36.5 C 88 16 108/61 95 Room Air 09/11/24 07:29 63 09/11/24 02:50 36.6 C 62 18 113/73 92 Room Air
--- NOTE | 2024-09-11 10:53 | Discharge Summary ---
Discharge Summary Date of Service September 11, 2024 Principal Dx & Hospital Course #1 = Principal Diagnosis (1) Decreased vision of left eye: (2) Diabetes mellitus, type 2: (3) Asthma: (4) Paroxysmal ventricular tachycardia: (5) Morbid obesity with BMI of 50.0-59.9, adult: Plan Patient is 59-year-old female with PMHx significant for asthma, DM II, panic disorder, morbid obesity who presented to the ER with complaint of left eye vision issue x 1 day. Stroke-like symptoms Blurry Vision, left eye Hx of senile cataracts OU on recent outpatient optometry visit 2022 Improved vision since arrival at the ER Head CT, head and neck CTA, brain MRI all unremarkable for acute stroke Hgba1c 6.7 Lipid panel with elevated triglycerides, LDL <70 Echo positive for bubble study Aspirin for stroke prevention Neurology consult Re: Transient left blurred vision. Recommended/ stated the following: "...Ophthalmology consult either inpatient or soon outpatient Continue Aspirin 81 mg daily Stroke risk factor reduction with goal BP<130/80, LDL< 70, A1c<7.0 Neurology follow-up x 1 month, can discuss further work-up and/or coming off asa..." On the day of discharge, pt stating that blurry vision in the left eye persisted though improved. She was advised to follow up with her program research specialist after discharge to which she agreed, she has a hx of cataracts. She was discharged on aspirin 81mg daily and will need Neurology followup in 1 month after discharge. Hypertensive Emergency Elevated Troponin Demand Ischemia Pt presented with significantly elevated BP Trop elevated with downtrend 91 to 79 EKG without acute ischemic changes Echo with noted LVH, diastolic dysfunction and noted PFO Cardiology consulted, appreciate recs. Recommended/stated the following: "...- Heart rate currently well-controlled -Blood pressure is significantly elevated on presentation is likely causing secondary demand ischemia -Recommend optimizing antihypertensive regimen -ECG reviewed indicates sinus rhythm with no ischemic changes -Increase lisinopril to 40 mg daily and transition from metoprolol to carvedilol 12.5 mg twice daily..." Pt with improved blood pressures on day of discharge to BPs of 108/61 and 103/68. Case was discussed via tiger text with sprigger Dr Brian Marshall on the day of discharge 09/11 who recommended that pt continue with the current medication regimen of lisinopril 40mg daily and coreg 12.5mg BID at home. Pt to continue to monitor her BP at home. Close PCP followup for continued monitoring. Bronchial asthma/restrictive lung disease stable on regimen DAVID on CPAP Morbid obesity encourage cpap for nightly use yuriy given HTN DM 2 on oral medications well-controlled as of recent hemoglobin A1c sliding scale while hospitalized Notes For Next Care Provider Please monitor BP and adjust medications as needed Medication Changes From Visit Per Neurology: aspirin 81mg daily Per Cardiology: Coreg 12.5mg BID and lisinopril 40mg daily Admission HPI Per Admitting Provider Patient is 59-year-old female with PMH asthma, DM II, paroxysmal ventricular tachycardia, panic disorder, morbid obesity presented to ER with complaint of left eye vision issue x 1 day.Patient states noticed last night around 7 PM that she had vision issues with her left eye. She describes it as a "cloud" in the lower half of her vision from her left eye that is obstructing vision from lower portion of eye field of left eye. Patient seen at PCPs office 09/06/2024 for repo rted bilateral eye itchiness and crusting in the morning in which was treated with erythromycin ointment. Patient states last used yesterday and reports resolution of eye itchiness. Denies any further redness or discharge from eye. Denies fever/chills, diaphoresis, N/V/D/C, [place], dizziness, syncope, other vision loss, diplopia, eye pain, neck pain, CP, SOB, cough, abdominal pain, paresthesias, weakness, extremity weakness, extremity edema, rashes, dysuria, hematuria. Admission Exam Per Admitting Provider General: no distress, obese female Head: normocephalic, atraumatic Eyes: PERRL, EOM's intact, conjunctiva non-injected, anicteric ENT: normal inspection external ears, nose, mucous membranes moist Neck: supple, trachea midline, non-tender Lungs: clear, no respiratory distress, no wheezing/rhonchi/rales CV: RRR, no murmur, no JVD, no pretibial edema Abd: normal BS, soft, non-tender Ext: no cyanosis, no calf tenderness Neuro: A&O x 3, no focal deficits noted, normal affect. Peripheral visual gallego intact. Describes "cloud" to lower half of vision of left eye. PERRL, No nystagmus, facial sensation is intact and symmetric, face is strong and symmetric, hearing grossly intact, soft palate elevates symmetrically, no dysarthria, shoulder shrug intact, tongue is midline, normal movement, no fasciculations Strength 5/5 bilateral upper and lower extremities Skin: warm, dry Discharge Exam General: Alert, oriented. No acute distress Neuro: No gross deficits except for decreased vision in left eye HEENT: NC/AT CV: RRR Resp: Breath sounds clear bilaterally, no increased effort of breathing Abdomen: Soft, nontender Extremities: No edema in lower extremities bilaterally. Updated Medication List Medication Instructions Recorded Confirmed Type acetaminophen 650 mg 650 mg PO Q8H PRN Pain 08/20/18 09/09/24 History tablet,extended release (Tylenol Arthritis Pain) albuterol sulfate 90 mcg/actuation 2 puff inhalation Q4H PRN 08/20/18 09/09/24 History aerosol inhaler (Ventolin HFA) Shortness Of Breath cetirizine 10 mg tablet 10 mg PO HS 08/20/18 09/09/24 History montelukast 10 mg tablet 10 mg PO HS 08/20/18 09/09/24 History triamcinolone acetonide 0.1 % 1 applic topical BID PRN itching 08/20/18 09/09/24 History topical cream diclofenac sodium 1 % topical gel 2 g topical QID PRN Pain 11/25/22 09/09/24 History metformin 1,000 mg tablet 1,000 mg PO BID 11/25/22 09/09/24 History mometasone-formoterol HFA 200 2 puff inhalation BID 11/25/22 09/09/24 History mcg-5 mcg/actuation aerosol inhaler (Dulera) sertraline 100 mg tablet 100 mg PO HS 11/25/22 09/09/24 History sulindac 200 mg tablet 200 mg PO BID 11/25/22 09/09/24 History aspirin 81 mg tablet,delayed 81 mg PO QAM #30 tabs 09/11/24 Rx release carvedilol 12.5 mg tablet 12.5 mg PO BIDM #60 tabs 09/11/24 Rx lisinopril 40 mg tablet 40 mg PO QAM #60 tabs 09/11/24 Rx Hospital Stay Data Consultations 09/09/24 20:03 ED Decision to Admit Stat 09/09/24 23:03 Consult Neurology Routine 09/10/24 11:57 Consult Cardiology Routine Diagnostic Imagining Performed 09/09/24 16:44 CT angio head w con Stat CT angio neck with con Stat CT head/brain wo con Stat 09/09/24 21:31 MR brain wo con Routine Chest X-Ray 09/09/24 16:44 REASON FOR EXAM: The patient is 59 years old presenting with a history of stroke alert. HISTORY: Weakness EXAM: Portable chest Previous: None. Cardiac size is normal. Lungs show no definite acute infiltrate, collapse or edema. IMPRESSION: Negative for acute disease at this time. Electronically signed by Austen Law 09-09-2024 5:[address] 09/09/24 16:[address] without contrast CT angiogram of the neck CT angiogram of the brain with contrast Provided History: Vision loss Comparison: None Technique: HEAD CT: Using multidetector thin collimation helical acquisition technique, axial, coronal and sagittal CT images from the skull base to the vertex were obtained without intravenous contrast. HEAD and NECK CTA: During rapid bolus intravenous injection of nonionic contrast material, axial images were obtained using thin collimation multidetector helical technique from the base of the neck through the of vertex of the head. This CT angiogram data was reconstructed at thin intervals with mild overlap. 3D reconstructions were obtained. The axial source images, multiplanar reformations, 3D reconstructions in both maximum intensity projection display and volume rendered models were reviewed. Dose reduction techniques were achieved by using automatic exposure control and/or adjustment of mA and/or kV according to patient size and/or use of iterative reconstruction technique. Findings: Head CT: There is no intracranial hemorrhage, mass effect, or midline shift. Clay/white matter differentiation in both cerebral hemispheres is preserved. Ventricles are proportionate to the cerebral sulci. Head CTA demonstrates no aneurysm or stenosis of the major intracranial arteries. Neck CTA demonstrates no stenosis of the major cervical arteries. The origins of the great vessels from the aortic arch are patent. The normal distal right internal carotid artery measures 5 mm. The normal distal left internal carotid artery measures 5 mm. No mass is noted within the visualized portions of the cervical soft tissues or lung apices. Impression: 1. Head CTA demonstrates no aneurysm or stenosis of the major intracranial arteries, 2. Neck CTA demonstrates no stenosis of the major cervical arteries. 3. No intracranial hemorrhage on the noncontrast head CT. Electronically signed by Micah Choudhary 09-09-2024 7:15 PM Head CTA 09/09/24 16:[address] without contrast CT angiogram of the neck CT angiogram of the brain with contrast Provided History: Vision loss Comparison: None Technique: HEAD CT: Using multidetector thin collimation helical acquisition technique, axial, coronal and sagittal CT images from the skull base to the vertex were obtained without intravenous contrast. HEAD and NECK CTA: During rapid bolus intravenous injection of nonionic contrast material, axial images were obtained using thin collimation multidetector helical technique from the base of the neck through the of vertex of the head. This CT angiogram data was reconstructed at thin intervals with mild overlap. 3D reconstructions were obtained. The axial source images, multiplanar reformations, 3D reconstructions in both maximum intensity projection display and volume rendered models were reviewed. Dose reduction techniques were achieved by using automatic exposure control and/or adjustment of mA and/or kV according to patient size and/or use of iterative reconstruction technique. Findings: Head CT: There is no intracranial hemorrhage, mass effect, or midline shift. Clay/white matter differentiation in both cerebral hemispheres is preserved. Ventricles are proportionate to the cerebral sulci. Head CTA demonstrates no aneurysm or stenosis of the major intracranial arteries. Neck CTA demonstrates no stenosis of the major cervical arteries. The origins of the great vessels from the aortic arch are patent. The normal distal right internal carotid artery measures 5 mm. The normal distal left internal carotid artery measures 5 mm. No mass is noted within the visualized portions of the cervical soft tissues or lung apices. Impression: 1. Head CTA demonstrates no aneurysm or stenosis of the major intracranial arteries, 2. Neck CTA demonstrates no stenosis of the major cervical arteries. 3. No intracranial hemorrhage on the noncontrast head CT. Electronically signed by Micah Choudhary 09-09-2024 7:15 PM Neck CTA 09/09/24 16:[address] without contrast CT angiogram of the neck CT angiogram of the brain with contrast Provided History: Vision loss Comparison: None Technique: HEAD CT: Using multidetector thin collimation helical acquisition technique, axial, coronal and sagittal CT images from the skull base to the vertex were obtained without intravenous contrast. HEAD and NECK CTA: During rapid bolus intravenous injection of nonionic contrast material, axial images were obtained using thin collimation multidetector helical technique from the base of the neck through the of vertex of the head. This CT angiogram data was reconstructed at thin intervals with mild overlap. 3D reconstructions were obtained. The axial source images, multiplanar reformations, 3D reconstructions in both maximum intensity projection display and volume rendered models were reviewed. Dose reduction techniques were achieved by using automatic exposure control and/or adjustment of mA and/or kV according to patient size and/or use of iterative reconstruction technique. Findings: Head CT: There is no intracranial hemorrhage, mass effect, or midline shift. Clay/white matter differentiation in both cerebral hemispheres is preserved. Ventricles are proportionate to the cerebral sulci. Head CTA demonstrates no aneurysm or stenosis of the major intracranial arteries. Neck CTA demonstrates no stenosis of the major cervical arteries. The origins of the great vessels from the aortic arch are patent. The normal distal right internal carotid artery measures 5 mm. The normal distal left internal carotid artery measures 5 mm. No mass is noted within the visualized portions of the cervical soft tissues or lung apices. Impression: 1. Head CTA demonstrates no aneurysm or stenosis of the major intracranial arteries, 2. Neck CTA demonstrates no stenosis of the major cervical arteries. 3. No intracranial hemorrhage on the noncontrast head CT. Electronically signed by Micah Choudhary 09-09-2024 7:15 PM Brain MRI 09/09/24 21:31 Exam(s): MRI HEAD Without Contrast EXAM: MR Head Without Intravenous Contrast CLINICAL HISTORY: Reason for exam: tia. TECHNIQUE: Magnetic resonance images of the head/brain without intravenous contrast in multiple planes. COMPARISON: Prior head CT from September 09, 2024. FINDINGS: Brain: Mild nonspecific white matter changes. No mass. No hemorrhage. No acute infarct. The flow voids at the base of the brain are intact. Bilateral cerebellar tonsillar ectopia. Ventricles: Unremarkable. No ventriculomegaly. Bones/joints: Unremarkable. No acute fracture. Sinuses: Unremarkable as visualized. No acute sinusitis. Mastoid air cells: Unremarkable as visualized. No mastoid effusion. Orbits: Unremarkable as visualized. IMPRESSION: No evidence of acute intracranial pathology. Electronically signed by: Priti Kang MD 09/10/24 00:32 AM Discharge Instructions Given to Patient (Per Discharging Provider) Vero You were seen and evaluated for stroke-like symptoms. We determined that you did not have a stroke. Neurology would like you to continue with a daily aspirin 81mg daily. Your blood pressure was also noted to be very high and your heart enzymes were elevated. You were seen by the sprigger who adjusted your medications. Please stop taking the medication metoprolol at home and take the medication Coreg instead as prescribed. Please continue with the increased dose of lisinopril. Please keep close follow up with your primary care provider after discharge. Please do not hesitate to come back to the emergency room if your symptoms worsen or return. It was a pleasure taking care of you while you were here. Total Time Total Time Spent Total Time Spent (In Minutes): 60
[2024-09-11 12:05] VITALS: RESP 18; O2SAT 92
[2024-09-11] MEDS ORDERED: STROKE PATIENT DISCHARGE STA (14:16)
[2024-09-11 14:24] VITALS: BP 159/83; PULSE 65
== END 2024-09-11 15:00 | disposition home or self-care (01) | DRG 125 ==
LOC: ED 14:15 → 2W 21:30